=== PATIENT | male | born 1945 | race Caucasian/White ===

== ENCOUNTER 2024-05-28 08:11 | Inpatient (IN) | payer MEDICARE, OTHER, SELFPAY ==
[2024-05-28] VITALS (53 sets, daily range): BP systolic 102–167; BP diastolic 57–113; PULSE 72–113; RESP 12–20; TEMP 29.6–37.6; O2SAT 97–100; BMI 26.2
--- NOTE | ~2024-05-28 | CT_ITS ---
EXAMINATION: CT abdomen pelvis w con DATE: 05/28/2024 11:43 INDICATION: Found down. Hypothermia. TECHNIQUE: Computed tomography (CT) of the abdomen and pelvis was performed with 100 CC Omnipaque 350 intravenous contrast. Automated exposure control and iterative reconstruction technique were employe d. Exam dose: 1118.40 mGy-cm total exam DLP. COMPARISON: None. FINDINGS: Status post sternotomy. Included left nipple with mild gynecomastia; the right nipple is not excluded in this exam. There is minimal infiltrate or atelectasis in the dependent right lower lobe. Included lower lung zon es are otherwise clear. Normal heart size. No pericardial or pleural effusion. Small sliding hiatal hernia. There are multiple stones in the dependent aspect of the gallbladder. No gallbladder wall thickening or pericholecystic fluid or fat stranding. No bile duct or pancreatic duct dilatation is detected. The liver, spleen, pancreas, and adrenal glands are unremarkable. Occasional bilateral renal cysts, t he largest situated on the right, measuring up to 2 cm. No urinary tract calculus or hydroureteronephrosis is evident. There is extensive atherosclerotic calcification of the abdominal aorta and calcification at the orig ins of the celiac, superior mesenteric arteries as well as the renal arteries and inferior mesenteric artery. No abdominal aortic aneurysm. There is calcification of the iliac and femoral arteries. No intraperitoneal or retroperitoneal or pelvic mass lesion or adenopathy or ascites is detected. There is a Ramos catheter within the urinary bladder. Mild prostate enlargement. There are numerous diverticula of left and right colon. No CT evidence of diverticulitis. Normal appendix. There is a prominent amount of fecal material in the rectum and sigmoid colon. No bowel obstruction o r intraperitoneal free air. Multilevel degenerative disc disease lumbar spine, moderately severe at L4-5, severe at L5-S1. No suspicious osteolytic or osteoblastic lesions are noted. IMPRESSION: Status post sternotomy Minimal infiltrate or atelectasis in the dependent right lower lobe Small sliding hiatal hernia Cholelithiasis Occasional bilateral renal cysts Prominent amount of fecal material in the rectum and sigmoid colon; no bowel obstruction or free air Diverticulosis of left and right colon; no evidence of diverticulitis Normal appendix Reviewed, dictated and finalized at [facility]. Reviewed, dictated and finalized at [facility]. ARY SERVICES MANAGER IMPRESSION: Status post sternotomy Minimal infiltrate or atelectasis in the dependent right lower lobe Small sliding hiatal hernia Cholelithiasis Occasional bilateral renal cysts Prominent amount of fecal material in the rectum and sigmoid colon; no bowel ob struction or free air Diverticulosis of left and right colon; no evidence of diverticulitis Normal appendix
--- NOTE | ~2024-05-28 | XR_ITS ---
XR foot RT min 3V DATE: 05/28/2024 10:40 INDICATION: Found down. Bruising, abrasions TECHNIQUE: 3 views COMPARISON: None FINDINGS: There is osteopenia. There is mild plantar calcaneal enthesopathy. No recent fracture or dislocation, periosteal reaction or bone destruction is detected. Small erosions along the distal medial aspect of the medial cuneiform bone. IMPRESSION: Osteopenia Mild plantar calcaneal enthesopathy No recent fracture or dislocation Reviewed, dictated and finalized at location [facility]. LOPMENT EXECUTIVE
--- NOTE | ~2024-05-28 | XR_ITS ---
XR hand LT min 3V DATE: 05/28/2024 10:40 INDICATION: Found down TECHNIQUE: 3 views COMPARISON: None FINDINGS: There is osteopenia. There is polyarticular osteoarthritis involving triscaphe joint and first through fourth metacarpal p halangeal joints in particular, in addition to the interphalangeal joint of first digit. Mild chondrocalcinosis of the wrist joint. Mild scapholunate dissociation. No recent fracture, dislocation, periosteal reaction or bone destruction is detected. IMPRESSION: No recent fracture or dislocation is evident Polyarticular osteoarthritis Osteopenia Mild scapholunate dissociation Mild carpal chondrocalcinosis Reviewed, dictated and finalized at location [facility]. FORCE MANAGEMENT MANAGER
--- NOTE | ~2024-05-28 | XR_ITS ---
EXAMINATION: XR chest 1V portable DATE: 05/30/2024 10:07 INDICATION: Altered mental status. TECHNIQUE: A single frontal view of the chest was obtained. COMPARISON: Chest single view 05/29/2024 FINDINGS: There is mild atelectasis in right lower lung zone. Calcified left lung nodules are consist ent with old granulomatous disease. No pleural effusion or pneumothorax. The heart size is normal. Me delilah sternotomy wires and mediastinal surgical clips are seen, likely from prior coronary artery bypa ss grafting. A right upper extremity peripherally inserted central venous catheter (PICC) is seen wit h tip in the superior vena cava. IMPRESSION: 1. Mild atelectasis in right lower lung zone. Reviewed, dictated and finalized at location [facility]. MA OPERATOR
--- NOTE | ~2024-05-28 | XR_ITS ---
XR elbow LT min 3V DATE: 05/28/2024 10:40 INDICATION: Found down TECHNIQUE: 4 views COMPARISON: None FINDINGS: There is an IV in the antecubital fossa. No fracture or dislocation or joint effusion. No periosteal reaction or bone destruction. IMPRESSION: Negative left elbow Reviewed, dictated and finalized at location [facility]. ESALE AGRONOMIST IMPRESSION: Negative left elbow
--- NOTE | ~2024-05-28 | XR_ITS ---
XR elbow RT min 3V DATE: 05/28/2024 10:40 INDICATION: Found down TECHNIQUE: 4 views COMPARISON: None FINDINGS: This is a limited examination due to extensive radiopaque material of the elbow and forearm , apparently extravasated radiopaque contrast material. No apparent fracture or dislocation or joint effusion is identified. IMPRESSION: Limited examination due to apparent extravasated radiopaque contrast material No obvious fracture, dislocation or joint effusion Reviewed, dictated and finalized at location A. ER HOLE REAMER IMPRESSION: Limited examination due to apparent extravasated radiopaque contras t material No obvious fracture, dislocation or joint effusion
--- NOTE | ~2024-05-28 | CT_ITS ---
EXAMINATION: CTA chest PE protocol DATE: 05/28/2024 09:21 INDICATION: TECHNIQUE: Computed tomography angiography (CTA) of the chest was performed with 100 mL Omnipaque-350 intravenous contrast timed to evaluate the pulmonary arteries. Coronal maximum intensity projection 3D-reconstructions were created by the technologist. Automated exposure control and iterative reconst ruction technique were employed. Exam dose: 628.77 mGy-cm total exam DLP. COMPARISON: None. FINDINGS: No pulmonary embolism is identified. Heart size is normal. No pericardial or pleural effusion. Prominent left main, left anterior descending, left circumflex and right coronary artery calcificatio ns. There is thoracic aortic and great vessel calcification. No thoracic aortic aneurysm or dissection. No hilar or mediastinal mass lesion or lymphadenopathy. Small sliding hiatal hernia. There is diffuse thickening of the distal esophageal wall which may be d ue to esophagitis. Fluid level in the mid to distal esophagus. Lungs are clear of infiltrate or consolidation or pulmonary mass density. Cholelithiasis. No gallbladder wall thickening is noted. Normal morphology of the adrenal glands. Prominent degenerative disc disease in the lower cervical spine. Status post sternotomy. No suspicious osteolytic or osteoblastic lesions are noted. IMPRESSION: No evidence of pulmonary embolism Prominent coronary artery atherosclerosis Small sliding hiatal hernia Esophagitis is suspected Cholelithiasis Reviewed, dictated and finalized at Location A. Reviewed, dictated and finalized at location A. OGEN POWER PLANT MANAGER
--- NOTE | ~2024-05-28 | XR_ITS ---
XR foot LT min 3V DATE: 05/28/2024 10:39 INDICATION: Found down TECHNIQUE: 4 views COMPARISON: None FINDINGS: There is osteopenia. Small erosion along the distal medial aspect of the medial cuneiform b one. No recent fracture or dislocation, periosteal reaction or bone destruction is noted otherwise. IMPRESSION: Osteopenia; no fracture or dislocation Reviewed, dictated and finalized at location A. DER CHANGER
--- NOTE | ~2024-05-28 | CT_ITS ---
EXAMINATION: CT facial & cervical spine wo DATE: 05/28/2024 09:20 INDICATION: Found down TECHNIQUE: Computed tomography (CT) of the facial bones and maxillofacial region was performed withou t intravenous contrast. Automated exposure control and iterative reconstruction technique were employ ed. Exam dose: 517.55 mGy-cm total exam DLP. COMPARISON: None. FINDINGS: Mild right frontal extracranial soft tissue swelling. No underlying skull fracture is evide nt. The nasal bones are intact. Normal alignment at the frontozygomatic sutures. The orbital rims and bear and zygomatic arches and maxillary bones are intact. Normal alignment at the temporomandibular joints. No mandibular fracture is evident. The pterygoid plates are intact. The paranasal sinuses and mastoid air cells are well-developed and aerated. Normal alignment at the atlantoaxial joints. C1 and C2 are normally aligned and the odontoid process is intact. No fracture or dislocation or locked facet or prevertebral soft tissue swelling. Moderate degenerative disc disease at C4-5. Severe degenerative disc disease at C5-6 with minimal ret rolisthesis. Severe degenerative disc disease at C6-7. Minimal anterolisthesis at C7-T1. There is degenerative change at the apophyseal joints. Uncovertebral joint spurring is noted particularly at C5-6. IMPRESSION: No facial fracture Cervical spondylosis; no fracture or dislocation or locked facet of the cervical spine Reviewed, dictated and finalized at Location A. Reviewed, dictated and finalized at location A. HATCHERY LABORER IMPRESSION: No facial fracture Cervical spondylosis; no fracture or dislocation or locked facet of the cervica l spine
--- NOTE | ~2024-05-28 | XR_ITS ---
XR knee RT 3V DATE: 05/28/2024 10:40 INDICATION: Found down. Bruising, abrasions TECHNIQUE: 3 views COMPARISON: None FINDINGS: There is osteopenia. No fracture or dislocation or joint effusion is evident. There is prominent loss of lateral compartment joint space. Chondrocalcinosis. No periosteal reaction or bone destruction is detected. IMPRESSION: Osteopenia Osteoarthritis involving primarily the lateral compartment Chondrocalcinosis No fracture or dislocation or joint effusion Reviewed, dictated and finalized at location A. ER MANAGEMENT PROFESSOR
--- NOTE | ~2024-05-28 | XR_ITS ---
XR knee LT 3V DATE: 05/28/2024 10:39 INDICATION: Found down. Bruising, abrasions TECHNIQUE: 3 views COMPARISON: None FINDINGS: There is osteopenia. No fracture or dislocation or joint effusion. There is minimal periart icular spurring of the patella. Joint spaces are relatively intact. No radiopaque intra-articular loo se body or chondrocalcinosis. Calcification of the femoral, popliteal and trifurcation arteries. IMPRESSION: Osteopenia Mild osteoarthritis No fracture or dislocation or joint effusion Reviewed, dictated and finalized at location A. MENT ANALYST
--- NOTE | ~2024-05-28 | XR_ITS ---
XR hand RT min 3V DATE: 05/28/2024 10:40 INDICATION: Found down TECHNIQUE: 3 views COMPARISON: None FINDINGS: There is osteopenia. There is chondrocalcinosis of the triangular cartilage and wrist joint. There is prominent narrowing at the radiocarpal joint space and invagination of the distal radius by the scaphoid bone. Probable degenerative cyst of the distal half of the navicular bone. There is narrowing at the first carpometacarpal joint, third metacarpophalangeal joint and some inter phalangeal joints, consistent with polyarticular osteoarthritis. IMPRESSION: Osteopenia Comment calcinosis of trying of the cartilage and wrist joint Polyarticular osteoarthritis No recent fracture or dislocation is detected Reviewed, dictated and finalized at location A. RENDERER
--- NOTE | ~2024-05-28 | CT_ITS ---
EXAMINATION: CT brain wo con DATE: 05/28/2024 09:19 INDICATION: Found down. Altered mental state. TECHNIQUE: Computed tomography (CT) of the head was performed without intravenous contrast. The mA wa s adjusted according to patient size. Iterative reconstruction technique was employed. Exam dose: 68 1.00 mGy-cm total exam DLP. COMPARISON: None FINDINGS: Bilateral vertebral artery, basilar artery and carotid siphon internal carotid artery calci fications. Nonspecific diminished attenuation the cerebral white matter is likely due to chronic small vessel is chemic changes. No intracranial mass lesion or hemorrhage or cerebrovascular accident is evident. No midline shift or mass effect. No subdural or epidural hematoma. No fracture or bone destruction of the cranial vault. The paranasal sinuses and mastoid air cells are normally developed and aerated. IMPRESSION: Cerebral atherosclerosis and chronic small vessel ischemic changes of the cerebral white matter No skull fracture or acute intracranial finding Reviewed, dictated and finalized at Location A. Reviewed, dictated and finalized at location A. STRAIGHTENER
--- NOTE | ~2024-05-28 | XR_ITS ---
EXAMINATION: XR chest PICC line DATE: 05/29/2024 13:09 INDICATION: Central line placement. TECHNIQUE: A single frontal view of the chest was obtained. COMPARISON: Chest CT 05/28/2024 FINDINGS: There is mild atelectasis in right lower lung zone. No pleural effusion or pneumothorax. Th e heart size is normal. Median sternotomy wires and mediastinal surgical clips are seen, likely from prior coronary artery bypass grafting. A right upper extremity peripherally inserted central venous c atheter (PICC) is seen with tip beyond the superior margin of the radiograph in the right internal ju gular vein. IMPRESSION: 1. PICC tip in abnormal position in the right neck. Reviewed, dictated and finalized at location A. NDS CLEANER
--- NOTE | ~2024-05-28 | XR_ITS ---
EXAMINATION: XR chest PICC line DATE: 05/29/2024 13:52 INDICATION: Central line placement. TECHNIQUE: A single frontal view of the chest was obtained. COMPARISON: Chest single view at 12:54 PM FINDINGS: The left lateral costophrenic angle is excluded. There is no pneumonia, pleural effusion, o r pneumothorax. The heart size is normal. Median sternotomy wires and mediastinal surgical clips are seen, likely from prior coronary artery bypass grafting. A right upper extremity peripherally inserte d central venous catheter (PICC) is seen with tip at the superior cavoatrial junction. IMPRESSION: 1. PICC tip at the superior cavoatrial junction. Reviewed, dictated and finalized at location A. ON GILLNET VESSEL OPERATOR
--- NOTE | 2024-05-28 08:14 | ECG_ITS ---
Test Date: 2024-05-28 08:41:56 Measurements Intervals [place] Rate: P: 0 MA: 0 QRS: 0 QRSD: 0 T: 0 QT: 0 QTc: 0 Interpretive Statements SINUS RHYTHM WITH SIGNIFICANT BASELINE ARTIFACT BASELINE ARTIFACT- I, II, III, AVR, AVL, AVF, V1-V6 NORMAL ECG No previous ECG available for comparison Electronically Signed On 05-28-2024 13:57:51 JOINT SETTER by Domingo Villa D.O.
[2024-05-28 08:33] LABS: Alveolar/Arterial O2 Gradient < 0.0 mmHg; Base Excess ABG -12.2 mEq/l (+/-2.0); Fractional Inspired Oxygen 21 %; HCO3 ABG 14.3 mEq/l (22.0-26.0); Oxygen Content ABG 17.4 %vol (16.0-22.0); Oxygen Saturation ABG 98.2 % (95.0-100.0); Oxyhemoglobin 97.8 % THb (90.0-100.0); PCO2 ABG 34.7 mmHg (35.0-45.0); PO2 ABG 132.4 mmHg (80.0-100.0); Total Hemoglobin 12.5 g/dL (12.0-18.0)
[2024-05-28 08:35] LABS: Device ROOM AIR; Modified Allen's Test Pass; Site Drawn RIGHT RADIAL; pH ABG 7.233 (7.350-7.450)
[2024-05-28 09:08] LABS: Basophils Absolute Auto 0.1 K/mm3 (0.0-0.1); Basophils Percent Auto 0.3 % (0.2-1.2); Hematocrit 34.8 % (42.0-52.0); Hemoglobin 11.9 g/dL (14.0-18.0); Immature Granulocyte Absolute 0.63 K/mm3 (0.00-0.031); Immature Granulocyte Percent A 2.9 % (0-0.5); Lymphocytes Absolute Auto 2.12 K/mm3 (0.9-3.2); Lymphocytes Percent Auto 9.9 % (18.3-44.2); Mean Corpuscular HGB Conc 34.2 g/dl (32-36); Mean Corpuscular Hemoglobin 34.8 pg (26-34); Mean Corpuscular Volume 101.8 fl (80-100); Mean Platelet Volume 11.9 fl (7.4-10.4); Monocytes Absolute Auto 2.6 K/mm3 (0.1-0.6); Monocytes Percent Auto 11.9 % (2.6-8.5); Neutrophils Absolute Auto 16.1 K/mm3 (1.3-6.7); Platelet Count Result 150 k/mm3 (150-375); Red Blood Count 3.42 M/mm3 (4.6-6.20); Red Cell Distribution Width 13.2 % (11.5-14.5); White Blood Count 21.4 K/mm3 (4.5-10.0)
[2024-05-28 09:20] LABS: Glucose Point of Care 139 mg/dl (65-105)
[2024-05-28 09:20] LABS: Acetaminophen < 10 ug/mL (10-30); Ethanol 120 mg/dL (<10)
[2024-05-28 09:21] LABS: Alanine Aminotransferase 31 U/L (6-50); Albumin Level 3.2 g/dL (3.5-5.1); Alkaline Phosphatase 56 U/L (38-126); Anion Gap 13 mmol/L (4-12); Aspartate Amino Transferase 42 U/L (17-59); Bilirubin,Total 0.8 mg/dL (0.2-1.3); Blood Urea Nitrogen 34 mg/dL (9-20); Calcium 7.3 mg/dL (8.4-10.2); Carbon Dioxide 18 mmol/L (22-30); Chloride 101 mmol/L (98-107); Creatine Kinase 259 U/L (55-170); Estimated CRCL calculation 49 ml/min; Estimated Glomerular Filt Rate > 60; Glucose 124 mg/dL (65-110); Lactic Acid Reflex 7.8 mmol/L (0.7-2.0); Lipase 264 U/L (23-300); Magnesium 1.9 mg/dL (1.6-2.3); Phosphorus 3.9 mg/dL (2.5-4.5); Potassium 4.6 mmol/L (3.4-5.0); Sodium 132 mmol/L (137-145)
[2024-05-28 09:22] LABS: Add Urine Microscopic? NO; Appearance Urine Clear (Clear); Bilirubin Urine Negative (Negative); Blood Urine Negative (Negative); Color Urine Yellow (Yellow); Glucose Urine UA Negative (Negative); Ketones Urine Negative (Negative); Leukocyte Esterase Ur Negative LEU/UL (Negative); Nitrate Urine Negative (Negative); Protein Urine Negative (Negative); Specific Grav Ur 1.016 (1.001-1.035); Urobilinogen Urine 0.2 mg/dL (<2.0)
[2024-05-28 09:23] LABS: Prothrombin Time 13.2 Seconds (11.1-14.7)
[2024-05-28 09:24] LABS: Partial Thromboplastin Time 24.4 Seconds (22.3-36.8)
[2024-05-28 09:25] LABS: Estimated CRCL calculation 45 ml/min; Estimated Glomerular Filt Rate 58
[2024-05-28 09:32] LABS: NT Pro B Type Natriuretic Pept 1160 pg/mL (19.9-100); Troponin I 0.026 ng/mL (0.000-0.034)
[2024-05-28 09:37] LABS: Amphetamine Screen Urine Negative (Negative); Barbiturate Screen Urine Negative (Negative); Benzodiazepines Screen Urine Negative (Negative); Cannabinoid Screen Urine Negative (Negative); Cocaine Screen Urine Negative (Negative); Methadone Screen Urine Negative (Negative); Opiate Screen Urine Positive (Negative); Phencyclidine Screen Urine Negative (Negative)
[2024-05-28] MEDS: SODIUM CHLORIDE 0.9% IV 3,000 ML 999 ML IV CONT (09:37)
--- NOTE | 2024-05-28 10:34 | PC.NURSE ---
[facility] in [place] called for a med list. The pharmacist reported he had only filled 2 rx and it was in Jul. She was able to see that he has sulfa drugs as a listed allergy. KARIN and Mohit did corporate searches and did not find this patient in their system. [facility] did not find their patient in their system.
--- NOTE | 2024-05-28 10:40 | PC.NURSE ---
[facility] pharmacy did not have patient in their system. [facility] did not have patient in their system.
[2024-05-28 10:56] LABS: Influenza A QL RT-PCR Negative (Negative); Influenza B QL RT-PCR Negative (Negative); RSV RNA, RT-PCR Negative (Negative); SARS-CoV-2 RNA PCR Negative (Negative)
[2024-05-28 12:05] LABS: Reflex Lactic Acid Yes or No Add Lactic
--- NOTE | 2024-05-28 13:02 | PC.NURSE ---
called phlebotomy and vascular access to assist with blood cultures.
--- NOTE | 2024-05-28 13:29 | ED_ITS ---
HPI - General Adult General Chief complaint: Fall Stated complaint: found outside Time Seen by Provider: 05/28/24 08:13 History of Present Illness HPI narrative: This is an 79-year-old male found down outside of his home. Neighbor saw him laying in his driveway. EMS was called. When they arrived the patient was cold to touch, with abrasions over his face hands knees and feet. It appeared that he had been crawling around his driveway but was unable to get into his home. Patient is altered and cannot provide any useful information to got a workup Related Data Home Medications Medication Instructions Recorded Confirmed albuterol 2 inh QID PRN Shortness Of Breath 05/28/24 Or Wheezing allopurinol 300 mg tablet 300 mg PO DAILY 05/28/24 amlodipine 5 mg tablet 5 mg PO DAILY 05/28/24 atorvastatin 40 mg tablet 40 mg PO HS 05/28/24 clotrimazole 1 % topical cream applic topical PRN Wound Care 05/28/24 (Antifungal (clotrimazole)) dorzolamide 2 %-timolol 0.5 % (PF) 1 drp ophthalmic (eye) BID 05/28/24 eye drops hydrochlorothiazide 25 mg tablet 25 mg PO DAILY 05/28/24 hydrocodone 5 mg-acetaminophen 325 1 tablet PO Q6H PRN Pain 05/28/24 mg tablet isoniazid 300 mg tablet 300 mg PO DAILY 05/28/24 naloxone 0.4 mg/0.4 mL injection, mg 05/28/24 auto-injector olodaterol 2.5 mcg/actuation mist 2 inhalation DAILY 05/28/24 for inhalation (Striverdi Respimat) pyridoxine (vitamin B6) 50 mg 50 mg PO DAILY 05/28/24 tablet Allergies Allergy/AdvReac Type Severity Reaction Status Date / Time Sulfa (Sulfonamide Allergy Unknown Verified 05/28/24 10:24 Antibiotics) FOR[facility]LY [facility] Past Medical History Medical History (Updated 05/28/24 @ 14:29 by Vito Steven MD) Chronic obstructive pulmonary disease Chronic prescription opiate use Coronary artery disease Hyperlipidemia Hypertension Social History Social History Social History: Surrogate medical decision maker: Code status: Full code. Alcohol intake: current Exam Narrative: APPEARANCE: alert to pain Head: multiple abrasions to face EYES: EOMI, NECK: Trachea midline RESPIRATORY: No increased rate of breathing, scattered crackles CARDIOVASCULAR: RRR, no peripheral edema ABDOMINAL: Non-distended, soft nontender MUSCULOSKELETAl: head to toe trauma exam revealed multiple areas of abrasions and skin tears. No obvious deformities or areas of significant trauma. NEURO: alert to voice. moves for 4 extremities to pain SKIN:: multiple abrasions and skin tears over the patient's face hands knees feet PSYCHIATRIC: Normal affect Course Vital Signs Vital signs: Vital Signs Temperature 85.3 F L 05/28/24 08:11 Pulse Rate 89 05/28/24 08:11 Respiratory Rate 17 05/28/24 08:11 Blood Pressure 147/93 H 05/28/24 08:11 Pulse Oximetry 100 05/28/24 08:11 Oxygen Delivery Room Air 05/28/24 08:11 Temperature 96.6 F L 05/28/24 13:01 Pulse Rate 92 05/28/24 13:01 Respiratory Rate 18 05/28/24 13:01 Blood Pressure 109/72 05/28/24 13:01 Pulse Oximetry 98 05/28/24 13:01 Oxygen Delivery Room Air 05/28/24 08:11 Medical Decision Making MDM Narrative Medical decision making narrative: -Course: 79-year-old male presenting after being found in his driveway after being out in the cold all night. On arrival patient is alert to pain. found have a core temperature of 29 degree C. temperature Ramos placed. patient started with active warming using a Gene Hugger. Patient given 3 L fluid bolus and started on broad-spectrum antibiotics. CT brain face neck negative for traumatic injury. CT PE negative for pe/PNA. CT abdomen pelvis negative for causitive findings. X-rays reviewed with no new traumatic injuries. Patient does have a mild scapholunate decision left hand but unclear chronicity. Laboratory significant for an alcohol level of 120. This is likely the reason the patient was found down on his driveway. White count 21. Lactic 7.8. ABG with 7.2 pH/ 34.7 CO2 /132.4 O2/ 14.3 - metabolic acidosis UDS - Opiates positive. confirmed pharmacy that this is prescription. on re-evaluation patient's core temperature is returned to 98.6. Blood pressure has been maintained. Mental status is improving. Patient will be admitted to the hospital for further management Vital Signs Vital Signs: Vital Signs Temperature 85.3 F L 05/28/24 08:11 Pulse Rate 89 05/28/24 08:11 Respiratory Rate 17 05/28/24 08:11 Blood Pressure 147/93 H 05/28/24 08:11 Pulse Oximetry 100 05/28/24 08:11 Oxygen Delivery Room Air 05/28/24 08:11 Temperature 96.6 F L 05/28/24 13:01 Pulse Rate 92 05/28/24 13:01 Respiratory Rate 18 05/28/24 13:01 Blood Pressure 109/72 05/28/24 13:01 Pulse Oximetry 98 05/28/24 13:01 Oxygen Delivery Room Air 05/28/24 08:11 Lab Data 05/28/24 08:41 05/28/24 08:55 Labs: Lab Results 05/28/24 05/28/24 05/28/24 Range/Units 08:36 08:41 08:41 WBC 21.4 H (4.5-10.0) K/mm3 RBC 3.42 L (4.6-6.20) M/mm3 Hgb 11.9 L (14.0-18.0) g/dL Hct 34.8 L (42.0-52.0) % MCV 101.8 H (80-100) fl MCH 34.8 H (26-34) pg MCHC 34.2 (32-36) g/dl RDW 13.2 (11.5-14.5) % Plt Count 150 (150-375) k/mm3 MPV 11.9 H (7.4-10.4) fl Immature Gran % (Auto) 2.9 H (0-0.5) % Neut % (Auto) 75.0 H (45.5-73.1) % Lymph % (Auto) 9.9 L (18.3-44.2) % [place] % (Auto) 11.9 H (2.6-8.5) % Eos % (Auto) 0.0 (0-4.4) % Baso % (Auto) 0.3 (0.2-1.2) % Lymph # (Auto) 2.12 (0.9-3.2) K/mm3 [place] # (Auto) 2.6 H (0.1-0.6) K/mm3 Eos # (Auto) 0.0 (0-0.3) K/mm3 Baso # (Auto) 0.1 (0.0-0.1) K/mm3 Abs Immat Gran (auto) 0.63 H (0.00-0.031) K/mm3 Absolute Neuts (auto) 16.1 H (1.3-6.7) K/mm3 Absolute Nucleated RBC 0.000 (0.0-0.012) K/mm3 Nucleated RBC % 0.0 (0.0-0.2) % PT 13.2 (11.1-14.7) Seconds INR 1.0 APTT 24.4 (22.3-36.8) Seconds Sodium Cancelled 132 L Potassium Cancelled Chloride Carbon Dioxide Anion Gap BUN Creatinine Estim Creat Clear Calc Estimated GFR Glucose POC Capillary Glucose 139 H (65-105) mg/dl Lactic Acid (0.7-2.0) mmol/L Calcium Phosphorus (2.5-4.5) mg/dL Magnesium Total Bilirubin AST ALT Alkaline Phosphatase Total Creatine Kinase Troponin I (0.000-0.034) ng/mL NT-Pro-B Natriuret Pep Total Protein Albumin Lipase TSH (Reflex) (0.465-4.68) uIU/mL Urine Color (Yellow) Urine Appearance (Clear) Urine pH (5.0-9.0) Ur Specific [place] (1.001-1.035) Urine Protein (Negative) mg/dL Urine Glucose (UA) (Negative) mg/dL Urine Ketones (Negative) mg/dL Ur Blood (Man) (Negative) Urine Nitrate (Negative) Urine Bilirubin (Negative) Urine Urobilinogen (<2.0) mg/dL Leukocyte Esterase Rfl (Negative) GRIS/UL Urine Opiates Screen (Negative) Urine Methadone Screen (Negative) Acetaminophen (10-30) ug/mL Ur Barbiturates Screen (Negative) Ur Phencyclidine Scrn (Negative) Ur Amphetamine Screen (Negative) U Benzodiazepines Scrn (Negative) Urine Cocaine Screen (Negative) U Cannabinoids Screen (Negative) Ethyl Alcohol (<10) mg/dL Influenza A (RT-PCR) (Negative) Influenza B (RT-PCR) (Negative) RSV (RT-PCR) (Negative) SARS-CoV-2 RNA (RT-PCR) (Negative) Blood Type Antibody Screen 05/28/24 05/28/24 05/28/24 Range/Units 08:41 08:41 08:41 WBC (4.5-10.0) K/mm3 RBC (4.6-6.20) M/mm3 Hgb (14.0-18.0) g/dL Hct (42.0-52.0) % MCV (80-100) fl MCH (26-34) pg MCHC (32-36) g/dl RDW (11.5-14.5) % Plt Count (150-375) k/mm3 MPV (7.4-10.4) fl Immature Gran % (Auto) (0-0.5) % Neut % (Auto) (45.5-73.1) % Lymph % (Auto) (18.3-44.2) % [place] % (Auto) (2.6-8.5) % Eos % (Auto) (0-4.4) % Baso % (Auto) (0.2-1.2) % Lymph # (Auto) (0.9-3.2) K/mm3 [place] # (Auto) (0.1-0.6) K/mm3 Eos # (Auto) (0-0.3) K/mm3 Baso # (Auto) (0.0-0.1) K/mm3 Abs Immat Gran (auto) (0.00-0.031) K/mm3 Absolute Neuts (auto) (1.3-6.7) K/mm3 Absolute Nucleated RBC (0.0-0.012) K/mm3 Nucleated RBC % (0.0-0.2) % PT (11.1-14.7) Seconds INR APTT (22.3-36.8) Seconds Sodium Potassium 4.6 Chloride Cancelled 101 Carbon Dioxide Cancelled 18 L Anion Gap Cancelled BUN Creatinine Estim Creat Clear Calc Estimated GFR Glucose POC Capillary Glucose (65-105) mg/dl Lactic Acid (0.7-2.0) mmol/L Calcium Phosphorus (2.5-4.5) mg/dL Magnesium Total Bilirubin AST ALT Alkaline Phosphatase Total Creatine Kinase Troponin I (0.000-0.034) ng/mL NT-Pro-B Natriuret Pep Total Protein Albumin Lipase TSH (Reflex) (0.465-4.68) uIU/mL Urine Color (Yellow) Urine Appearance (Clear) Urine pH (5.0-9.0) Ur Specific [place] (1.001-1.035) Urine Protein (Negative) mg/dL Urine Glucose (UA) (Negative) mg/dL Urine Ketones (Negative) mg/dL Ur Blood (Man) (Negative) Urine Nitrate (Negative) Urine Bilirubin (Negative) Urine Urobilinogen (<2.0) mg/dL Leukocyte Esterase Rfl (Negative) GRIS/UL Urine Opiates Screen (Negative) Urine Methadone Screen (Negative) Acetaminophen (10-30) ug/mL Ur Barbiturates Screen (Negative) Ur Phencyclidine Scrn (Negative) Ur Amphetamine Screen (Negative) U Benzodiazepines Scrn (Negative) Urine Cocaine Screen (Negative) U Cannabinoids Screen (Negative) Ethyl Alcohol (<10) mg/dL Influenza A (RT-PCR) (Negative) Influenza B (RT-PCR) (Negative) RSV (RT-PCR) (Negative) SARS-CoV-2 RNA (RT-PCR) (Negative) Blood Type Antibody Screen 05/28/24 05/28/24 05/28/24 Range/Units 08:41 08:41 08:41 WBC (4.5-10.0) K/mm3 RBC (4.6-6.20) M/mm3 Hgb (14.0-18.0) g/dL Hct (42.0-52.0) % MCV (80-100) fl MCH (26-34) pg MCHC (32-36) g/dl RDW (11.5-14.5) % Plt Count (150-375) k/mm3 MPV (7.4-10.4) fl Immature Gran % (Auto) (0-0.5) % Neut % (Auto) (45.5-73.1) % Lymph % (Auto) (18.3-44.2) % [place] % (Auto) (2.6-8.5) % Eos % (Auto) (0-4.4) % Baso % (Auto) (0.2-1.2) % Lymph # (Auto) (0.9-3.2) K/mm3 [place] # (Auto) (0.1-0.6) K/mm3 Eos # (Auto) (0-0.3) K/mm3 Baso # (Auto) (0.0-0.1) K/mm3 Abs Immat Gran (auto) (0.00-0.031) K/mm3 Absolute Neuts (auto) (1.3-6.7) K/mm3 Absolute Nucleated RBC (0.0-0.012) K/mm3 Nucleated RBC % (0.0-0.2) % PT (11.1-14.7) Seconds INR APTT (22.3-36.8) Seconds Sodium Potassium Chloride Carbon Dioxide Anion Gap 13 H BUN Cancelled 34 H Creatinine Cancelled 1.10 Estim Creat Clear Calc Cancelled Estimated GFR Glucose POC Capillary Glucose (65-105) mg/dl Lactic Acid (0.7-2.0) mmol/L Calcium Phosphorus (2.5-4.5) mg/dL Magnesium Total Bilirubin AST ALT Alkaline Phosphatase Total Creatine Kinase Troponin I (0.000-0.034) ng/mL NT-Pro-B Natriuret Pep Total Protein Albumin Lipase TSH (Reflex) (0.465-4.68) uIU/mL Urine Color (Yellow) Urine Appearance (Clear) Urine pH (5.0-9.0) Ur Specific [place] (1.001-1.035) Urine Protein (Negative) mg/dL Urine Glucose (UA) (Negative) mg/dL Urine Ketones (Negative) mg/dL Ur Blood (Man) (Negative) Urine Nitrate (Negative) Urine Bilirubin (Negative) Urine Urobilinogen (<2.0) mg/dL Leukocyte Esterase Rfl (Negative) GRIS/UL Urine Opiates Screen (Negative) Urine Methadone Screen (Negative) Acetaminophen (10-30) ug/mL Ur Barbiturates Screen (Negative) Ur Phencyclidine Scrn (Negative) Ur Amphetamine Screen (Negative) U Benzodiazepines Scrn (Negative) Urine Cocaine Screen (Negative) U Cannabinoids Screen (Negative) Ethyl Alcohol (<10) mg/dL Influenza A (RT-PCR) (Negative) Influenza B (RT-PCR) (Negative) RSV (RT-PCR) (Negative) SARS-CoV-2 RNA (RT-PCR) (Negative) Blood Type Antibody Screen 05/28/24 05/28/24 05/28/24 Range/Units 08:41 08:41 08:41 WBC (4.5-10.0) K/mm3 RBC (4.6-6.20) M/mm3 Hgb (14.0-18.0) g/dL Hct (42.0-52.0) % MCV (80-100) fl MCH (26-34) pg MCHC (32-36) g/dl RDW (11.5-14.5) % Plt Count (150-375) k/mm3 MPV (7.4-10.4) fl Immature Gran % (Auto) (0-0.5) % Neut % (Auto) (45.5-73.1) % Lymph % (Auto) (18.3-44.2) % [place] % (Auto) (2.6-8.5) % Eos % (Auto) (0-4.4) % Baso % (Auto) (0.2-1.2) % Lymph # (Auto) (0.9-3.2) K/mm3 [place] # (Auto) (0.1-0.6) K/mm3 Eos # (Auto) (0-0.3) K/mm3 Baso # (Auto) (0.0-0.1) K/mm3 Abs Immat Gran (auto) (0.00-0.031) K/mm3 Absolute Neuts (auto) (1.3-6.7) K/mm3 Absolute Nucleated RBC (0.0-0.012) K/mm3 Nucleated RBC % (0.0-0.2) % PT (11.1-14.7) Seconds INR APTT (22.3-36.8) Seconds Sodium Potassium Chloride Carbon Dioxide Anion Gap BUN Creatinine Estim Creat Clear Calc 49 Estimated GFR Cancelled > 60 Glucose Cancelled 124 H POC Capillary Glucose (65-105) mg/dl Lactic Acid 7.8 H* (0.7-2.0) mmol/L Calcium Cancelled Phosphorus (2.5-4.5) mg/dL Magnesium Total Bilirubin AST ALT Alkaline Phosphatase Total Creatine Kinase Troponin I (0.000-0.034) ng/mL NT-Pro-B Natriuret Pep Total Protein Albumin Lipase TSH (Reflex) (0.465-4.68) uIU/mL Urine Color (Yellow) Urine Appearance (Clear) Urine pH (5.0-9.0) Ur Specific [place] (1.001-1.035) Urine Protein (Negative) mg/dL Urine Glucose (UA) (Negative) mg/dL Urine Ketones (Negative) mg/dL Ur Blood (Man) (Negative) Urine Nitrate (Negative) Urine Bilirubin (Negative) Urine Urobilinogen (<2.0) mg/dL Leukocyte Esterase Rfl (Negative) GRIS/UL Urine Opiates Screen (Negative) Urine Methadone Screen (Negative) Acetaminophen (10-30) ug/mL Ur Barbiturates Screen (Negative) Ur Phencyclidine Scrn (Negative) Ur Amphetamine Screen (Negative) U Benzodiazepines Scrn (Negative) Urine Cocaine Screen (Negative) U Cannabinoids Screen (Negative) Ethyl Alcohol (<10) mg/dL Influenza A (RT-PCR) (Negative) Influenza B (RT-PCR) (Negative) RSV (RT-PCR) (Negative) SARS-CoV-2 RNA (RT-PCR) (Negative) Blood Type Antibody Screen 05/28/24 05/28/24 05/28/24 Range/Units 08:41 08:41 08:41 WBC (4.5-10.0) K/mm3 RBC (4.6-6.20) M/mm3 Hgb (14.0-18.0) g/dL Hct (42.0-52.0) % MCV (80-100) fl MCH (26-34) pg MCHC (32-36) g/dl RDW (11.5-14.5) % Plt Count (150-375) k/mm3 MPV (7.4-10.4) fl Immature Gran % (Auto) (0-0.5) % Neut % (Auto) (45.5-73.1) % Lymph % (Auto) (18.3-44.2) % [place] % (Auto) (2.6-8.5) % Eos % (Auto) (0-4.4) % Baso % (Auto) (0.2-1.2) % Lymph # (Auto) (0.9-3.2) K/mm3 [place] # (Auto) (0.1-0.6) K/mm3 Eos # (Auto) (0-0.3) K/mm3 Baso # (Auto) (0.0-0.1) K/mm3 Abs Immat Gran (auto) (0.00-0.031) K/mm3 Absolute Neuts (auto) (1.3-6.7) K/mm3 Absolute Nucleated RBC (0.0-0.012) K/mm3 Nucleated RBC % (0.0-0.2) % PT (11.1-14.7) Seconds INR APTT (22.3-36.8) Seconds Sodium Potassium Chloride Carbon Dioxide Anion Gap BUN Creatinine Estim Creat Clear Calc Estimated GFR Glucose POC Capillary Glucose (65-105) mg/dl Lactic Acid (0.7-2.0) mmol/L Calcium 7.3 L Phosphorus 3.9 (2.5-4.5) mg/dL Magnesium Cancelled 1.9 Total Bilirubin Cancelled 0.8 AST Cancelled ALT Alkaline Phosphatase Total Creatine Kinase Troponin I (0.000-0.034) ng/mL NT-Pro-B Natriuret Pep Total Protein Albumin Lipase TSH (Reflex) (0.465-4.68) uIU/mL Urine Color (Yellow) Urine Appearance (Clear) Urine pH (5.0-9.0) Ur Specific [place] (1.001-1.035) Urine Protein (Negative) mg/dL Urine Glucose (UA) (Negative) mg/dL Urine Ketones (Negative) mg/dL Ur Blood (Man) (Negative) Urine Nitrate (Negative) Urine Bilirubin (Negative) Urine Urobilinogen (<2.0) mg/dL Leukocyte Esterase Rfl (Negative) GRIS/UL Urine Opiates Screen (Negative) Urine Methadone Screen (Negative) Acetaminophen (10-30) ug/mL Ur Barbiturates Screen (Negative) Ur Phencyclidine Scrn (Negative) Ur Amphetamine Screen (Negative) U Benzodiazepines Scrn (Negative) Urine Cocaine Screen (Negative) U Cannabinoids Screen (Negative) Ethyl Alcohol (<10) mg/dL Influenza A (RT-PCR) (Negative) Influenza B (RT-PCR) (Negative) RSV (RT-PCR) (Negative) SARS-CoV-2 RNA (RT-PCR) (Negative) Blood Type Antibody Screen 05/28/24 05/28/24 05/28/24 Range/Units 08:41 08:41 08:41 WBC (4.5-10.0) K/mm3 RBC (4.6-6.20) M/mm3 Hgb (14.0-18.0) g/dL Hct (42.0-52.0) % MCV (80-100) fl MCH (26-34) pg MCHC (32-36) g/dl RDW (11.5-14.5) % Plt Count (150-375) k/mm3 MPV (7.4-10.4) fl Immature Gran % (Auto) (0-0.5) % Neut % (Auto) (45.5-73.1) % Lymph % (Auto) (18.3-44.2) % [place] % (Auto) (2.6-8.5) % Eos % (Auto) (0-4.4) % Baso % (Auto) (0.2-1.2) % Lymph # (Auto) (0.9-3.2) K/mm3 [place] # (Auto) (0.1-0.6) K/mm3 Eos # (Auto) (0-0.3) K/mm3 Baso # (Auto) (0.0-0.1) K/mm3 Abs Immat Gran (auto) (0.00-0.031) K/mm3 Absolute Neuts (auto) (1.3-6.7) K/mm3 Absolute Nucleated RBC (0.0-0.012) K/mm3 Nucleated RBC % (0.0-0.2) % PT (11.1-14.7) Seconds INR APTT (22.3-36.8) Seconds Sodium Potassium Chloride Carbon Dioxide Anion Gap BUN Creatinine Estim Creat Clear Calc Estimated GFR Glucose POC Capillary Glucose (65-105) mg/dl Lactic Acid (0.7-2.0) mmol/L Calcium Phosphorus (2.5-4.5) mg/dL Magnesium Total Bilirubin AST 42 ALT Cancelled 31 Alkaline Phosphatase Cancelled 56 Total Creatine Kinase Cancelled Troponin I (0.000-0.034) ng/mL NT-Pro-B Natriuret Pep Total Protein Albumin Lipase TSH (Reflex) (0.465-4.68) uIU/mL Urine Color (Yellow) Urine Appearance (Clear) Urine pH (5.0-9.0) Ur Specific [place] (1.001-1.035) Urine Protein (Negative) mg/dL Urine Glucose (UA) (Negative) mg/dL Urine Ketones (Negative) mg/dL Ur Blood (Man) (Negative) Urine Nitrate (Negative) Urine Bilirubin (Negative) Urine Urobilinogen (<2.0) mg/dL Leukocyte Esterase Rfl (Negative) GRIS/UL Urine Opiates Screen (Negative) Urine Methadone Screen (Negative) Acetaminophen (10-30) ug/mL Ur Barbiturates Screen (Negative) Ur Phencyclidine Scrn (Negative) Ur Amphetamine Screen (Negative) U Benzodiazepines Scrn (Negative) Urine Cocaine Screen (Negative) U Cannabinoids Screen (Negative) Ethyl Alcohol (<10) mg/dL Influenza A (RT-PCR) (Negative) Influenza B (RT-PCR) (Negative) RSV (RT-PCR) (Negative) SARS-CoV-2 RNA (RT-PCR) (Negative) Blood Type Antibody Screen 05/28/24 05/28/24 05/28/24 Range/Units 08:41 08:41 08:41 WBC (4.5-10.0) K/mm3 RBC (4.6-6.20) M/mm3 Hgb (14.0-18.0) g/dL Hct (42.0-52.0) % MCV (80-100) fl MCH (26-34) pg MCHC (32-36) g/dl RDW (11.5-14.5) % Plt Count (150-375) k/mm3 MPV (7.4-10.4) fl Immature Gran % (Auto) (0-0.5) % Neut % (Auto) (45.5-73.1) % Lymph % (Auto) (18.3-44.2) % [place] % (Auto) (2.6-8.5) % Eos % (Auto) (0-4.4) % Baso % (Auto) (0.2-1.2) % Lymph # (Auto) (0.9-3.2) K/mm3 [place] # (Auto) (0.1-0.6) K/mm3 Eos # (Auto) (0-0.3) K/mm3 Baso # (Auto) (0.0-0.1) K/mm3 Abs Immat Gran (auto) (0.00-0.031) K/mm3 Absolute Neuts (auto) (1.3-6.7) K/mm3 Absolute Nucleated RBC (0.0-0.012) K/mm3 Nucleated RBC % (0.0-0.2) % PT (11.1-14.7) Seconds INR APTT (22.3-36.8) Seconds Sodium Potassium Chloride Carbon Dioxide Anion Gap BUN Creatinine Estim Creat Clear Calc Estimated GFR Glucose POC Capillary Glucose (65-105) mg/dl Lactic Acid (0.7-2.0) mmol/L Calcium Phosphorus (2.5-4.5) mg/dL Magnesium Total Bilirubin AST ALT Alkaline Phosphatase Total Creatine Kinase 259 H Troponin I 0.026 (0.000-0.034) ng/mL NT-Pro-B Natriuret Pep Cancelled 1160 H Total Protein Cancelled 6.0 L Albumin Cancelled Lipase TSH (Reflex) (0.465-4.68) uIU/mL Urine Color (Yellow) Urine Appearance (Clear) Urine pH (5.0-9.0) Ur Specific [place] (1.001-1.035) Urine Protein (Negative) mg/dL Urine Glucose (UA) (Negative) mg/dL Urine Ketones (Negative) mg/dL Ur Blood (Man) (Negative) Urine Nitrate (Negative) Urine Bilirubin (Negative) Urine Urobilinogen (<2.0) mg/dL Leukocyte Esterase Rfl (Negative) GRIS/UL Urine Opiates Screen (Negative) Urine Methadone Screen (Negative) Acetaminophen (10-30) ug/mL Ur Barbiturates Screen (Negative) Ur Phencyclidine Scrn (Negative) Ur Amphetamine Screen (Negative) U Benzodiazepines Scrn (Negative) Urine Cocaine Screen (Negative) U Cannabinoids Screen (Negative) Ethyl Alcohol (<10) mg/dL Influenza A (RT-PCR) (Negative) Influenza B (RT-PCR) (Negative) RSV (RT-PCR) (Negative) SARS-CoV-2 RNA (RT-PCR) (Negative) Blood Type Antibody Screen 05/28/24 05/28/24 05/28/24 Range/Units 08:41 08:41 08:47 WBC (4.5-10.0) K/mm3 RBC (4.6-6.20) M/mm3 Hgb (14.0-18.0) g/dL Hct (42.0-52.0) % MCV (80-100) fl MCH (26-34) pg MCHC (32-36) g/dl RDW (11.5-14.5) % Plt Count (150-375) k/mm3 MPV (7.4-10.4) fl Immature Gran % (Auto) (0-0.5) % Neut % (Auto) (45.5-73.1) % Lymph % (Auto) (18.3-44.2) % [place] % (Auto) (2.6-8.5) % Eos % (Auto) (0-4.4) % Baso % (Auto) (0.2-1.2) % Lymph # (Auto) (0.9-3.2) K/mm3 [place] # (Auto) (0.1-0.6) K/mm3 Eos # (Auto) (0-0.3) K/mm3 Baso # (Auto) (0.0-0.1) K/mm3 Abs Immat Gran (auto) (0.00-0.031) K/mm3 Absolute Neuts (auto) (1.3-6.7) K/mm3 Absolute Nucleated RBC (0.0-0.012) K/mm3 Nucleated RBC % (0.0-0.2) % PT (11.1-14.7) Seconds INR APTT (22.3-36.8) Seconds Sodium Potassium Chloride Carbon Dioxide Anion Gap BUN Creatinine Estim Creat Clear Calc Estimated GFR Glucose POC Capillary Glucose (65-105) mg/dl Lactic Acid (0.7-2.0) mmol/L Calcium Phosphorus (2.5-4.5) mg/dL Magnesium Total Bilirubin AST ALT Alkaline Phosphatase Total Creatine Kinase Troponin I (0.000-0.034) ng/mL NT-Pro-B Natriuret Pep Total Protein Albumin 3.2 L Lipase Cancelled 264 TSH (Reflex) 1.240 (0.465-4.68) uIU/mL Urine Color Yellow (Yellow) Urine Appearance Clear (Clear) Urine pH 5.0 (5.0-9.0) Ur Specific [place] 1.016 (1.001-1.035) Urine Protein Negative (Negative) mg/dL Urine Glucose (UA) Negative (Negative) mg/dL Urine Ketones Negative (Negative) mg/dL Ur Blood (Man) Negative (Negative) Urine Nitrate Negative (Negative) Urine Bilirubin Negative (Negative) Urine Urobilinogen 0.2 (<2.0) mg/dL Leukocyte Esterase Rfl Negative (Negative) GRIS/UL Urine Opiates Screen Positive A (Negative) Urine Methadone Screen Negative (Negative) Acetaminophen < 10 L (10-30) ug/mL Ur Barbiturates Screen Negative (Negative) Ur Phencyclidine Scrn Negative (Negative) Ur Amphetamine Screen Negative (Negative) U Benzodiazepines Scrn Negative (Negative) Urine Cocaine Screen Negative (Negative) U Cannabinoids Screen Negative (Negative) Ethyl Alcohol 120 (<10) mg/dL Influenza A (RT-PCR) (Negative) Influenza B (RT-PCR) (Negative) RSV (RT-PCR) (Negative) SARS-CoV-2 RNA (RT-PCR) (Negative) Blood Type A Negative Antibody Screen Negative 05/28/24 05/28/24 Range/Units 08:55 10:10 WBC (4.5-10.0) K/mm3 RBC (4.6-6.20) M/mm3 Hgb (14.0-18.0) g/dL Hct (42.0-52.0) % MCV (80-100) fl MCH (26-34) pg MCHC (32-36) g/dl RDW (11.5-14.5) % Plt Count (150-375) k/mm3 MPV (7.4-10.4) fl Immature Gran % (Auto) (0-0.5) % Neut % (Auto) (45.5-73.1) % Lymph % (Auto) (18.3-44.2) % [place] % (Auto) (2.6-8.5) % Eos % (Auto) (0-4.4) % Baso % (Auto) (0.2-1.2) % Lymph # (Auto) (0.9-3.2) K/mm3 [place] # (Auto) (0.1-0.6) K/mm3 Eos # (Auto) (0-0.3) K/mm3 Baso # (Auto) (0.0-0.1) K/mm3 Abs Immat Gran (auto) (0.00-0.031) K/mm3 Absolute Neuts (auto) (1.3-6.7) K/mm3 Absolute Nucleated RBC (0.0-0.012) K/mm3 Nucleated RBC % (0.0-0.2) % PT (11.1-14.7) Seconds INR APTT (22.3-36.8) Seconds Sodium Potassium Chloride Carbon Dioxide Anion Gap BUN Creatinine 1.20 Estim Creat Clear Calc 45 Estimated GFR 58 L Glucose POC Capillary Glucose (65-105) mg/dl Lactic Acid (0.7-2.0) mmol/L Calcium Phosphorus (2.5-4.5) mg/dL Magnesium Total Bilirubin AST ALT Alkaline Phosphatase Total Creatine Kinase Troponin I (0.000-0.034) ng/mL NT-Pro-B Natriuret Pep Total Protein Albumin Lipase TSH (Reflex) (0.465-4.68) uIU/mL Urine Color (Yellow) Urine Appearance (Clear) Urine pH (5.0-9.0) Ur Specific [place] (1.001-1.035) Urine Protein (Negative) mg/dL Urine Glucose (UA) (Negative) mg/dL Urine Ketones (Negative) mg/dL Ur Blood (Man) (Negative) Urine Nitrate (Negative) Urine Bilirubin (Negative) Urine Urobilinogen (<2.0) mg/dL Leukocyte Esterase Rfl (Negative) GRIS/UL Urine Opiates Screen (Negative) Urine Methadone Screen (Negative) Acetaminophen (10-30) ug/mL Ur Barbiturates Screen (Negative) Ur Phencyclidine Scrn (Negative) Ur Amphetamine Screen (Negative) U Benzodiazepines Scrn (Negative) Urine Cocaine Screen (Negative) U Cannabinoids Screen (Negative) Ethyl Alcohol (<10) mg/dL Influenza A (RT-PCR) Negative (Negative) Influenza B (RT-PCR) Negative (Negative) RSV (RT-PCR) Negative (Negative) SARS-CoV-2 RNA (RT-PCR) Negative (Negative) Blood Type Antibody Screen ABG Data ABG results: 05/28/24 08:30 Puncture Site Right radial ABG pH 7.233 L* ABG pCO2 34.7 L ABG pO2 132.4 H ABG PO2/FiO2 Ratio 6.30 ABG HCO3 14.3 L ABG O2 Saturation 98.2 ABG O2 Content 17.4 ABG Base Excess -12.2 A-a Gradient < 0.0 Oxyhemoglobin 97.8 Total Hemoglobin 12.5 O2 Delivery Device Room air O2 Liters/Min Not Reportable FiO2 21 Critical Care Time Critical Care Time Critical Care Time: Yes Total Critical Care Time: 75 Discharge Plan Discharge Clinical Impression: Hypothermia, Acidosis, lactic, Alcohol intoxication, Leukocytosis, Encephalopathy, Abrasion Patient Disposition: Still a Patient Condition: Stable Prescriptions: No Action atorvastatin 40 mg Tablet 40 mg PO HS hydrocodone-acetaminophen 5-325 mg Tablet 1 tablet PO Q6H PRN (Reason: Pain) amlodipine 5 mg Tablet 5 mg PO DAILY isoniazid 300 mg Tablet 300 mg PO DAILY pyridoxine (vitamin B6) 50 mg Tablet 50 mg PO DAILY allopurinol 300 mg Tablet 300 mg PO DAILY hydrochlorothiazide 25 mg Tablet 25 mg PO DAILY clotrimazole [Antifungal (clotrimazole)] 1 % Cream TOPICAL PRN (Reason: Wound Care) naloxone 0.4 mg/0.4 mL Auto-Injector dorzolamide-timolol (PF) 2-0.5 % Drops 1 drp OPHTHALMIC (EYE) BID Rx Instructions: RIGHT EYE albuterol 2 inh QID PRN (Reason: Shortness Of Breath Or Wheezing) Striverdi Respimat 2.5 mcg/actuation Mist 2 INHALATION DAILY Follow-up/Referrals: UNKNOWN,DOCTOR [Primary Care Provider] -
--- NOTE | 2024-05-28 13:55 | P.HP_ITS ---
H&P: HPI History of Present Illness Date/Time: 05/28/24 15:00 Chief Complaint: Found down outside. 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 He was hypothermic and quite confused on arrival to the emergency department but now that he is warm he is alert and oriented x4 and is able to provide a pretty good history. He was in his usual state of health yesterday and went to a basketball game and then to the [facility] where he had several drinks with his friends. He returned home around midnight and when he got out of his truck he was feeling dizzy and he fell forward onto the ground. Throughout the night he made multiple attempts to get himself up from the ground to no avail. He has severe osteoarthritis in both knees and it is to the point where he has difficulties standing up from a chair. He remembers crawling around the driveway and trying to find something to help himself up until eventually he gave up. He had his cell phone in his pocket but did not call for help for unclear reasons. With further questioning he reports having dizzy spells recently for which he has seen his doctors at the [place] and he has at least had an echocardiogram done fairly recently. He has difficulties describing what he means by dizzy and denies both feelings of abnormal motion and lightheadedness. He describes neuropathy symptoms in his legs, feet, and arms and this has been ongoing for quite some time. He denies loss of consciousness in the fall last night and he reports having all over body aches but no articular complaints at the time my evaluation. He denies fever, cold and flu symptoms, chest pain, pleuritic pain, palpitations, orthopnea, paroxysmal nocturnal dyspnea, cough, abdominal pain, nausea, vomiting, diarrhea, dysuria, visual changes, focal weakness, facial droop, and difficulty speaking and swallowing. In the ED: His temperature was 85.3? F on arrival with the remainder of his v ital signs being stable. Labs were significant for WBC count 21.4, hemoglobin 11.9, sodium 132, carbon dioxide 18, anion gap 13, BUN 34, creatinine 1.20, glucose 124, lactic acid 7.8, total creatinine kinase 259, proBNP 1160, total protein 6.0, albumin 3.2. Drug screen was positive for opiates. Ethyl alcohol was 120. Numerous radiographs were negative for acute findings. CT scans of the head, cervical spine, and facial bones were without acute findings. CT scans of the chest, abdomen, and pelvis showed prominent amount of fecal material in the colon and suspected esophagitis. He was placed under a Gene Hugger and his temperature is now normal. He received a 3 L normal saline bolus with normalization of lactic acid level. He was also given vancomycin and piperacillin/tazobactam for possible underlying infection and he is being admitted in this setting for further treatment and evaluation. Review of Systems Review of Systems: Twelve systems were reviewed. His 22 months ago and he is understandably still depressed about that. He denies harmful thoughts and specifically denies suicidal ideation. He drinks 3 to 4 Budweisers a night, sometimes more if he is out with his friends at the [facility]. He has never had signs or symptoms of alcohol withdrawal and has no history of seizures. Except as documented, all other systems were reviewed and are negative. [facility] Past Medical History Medical History (Updated 05/28/24 @ 19:55 by Deborah Guerrero PA-C) Chronic obstructive pulmonary disease Chronic pain syndrome Chronic prescription opiate use Coronary artery disease Daily consumption of alcohol Glaucoma Gout Hyperlipidemia Hypertension Kidney stones Latent tuberculosis Vitamin B12 deficiency Surgical History Surgical History (Updated 05/28/24 @ 19:47 by Deborah Guerrero PA-C) History of cataract extraction History of coronary artery bypass graft x 3 (2003) History of coronary artery stent placement x2 History of detached retina repair History of hernia repair Family History Family History (Updated 05/28/24 @ 19:47 by Deborah Guerrero PA-C) Other Family history non-contributory Social History Social History (Updated 05/28/24 @ 19:48 by Deborah Guerrero PA-C) Social History: Surrogate medical decision maker: Jeannette Abdi, Conor Ramsey (children). Code status: Full code. Smoking packs per day: 2 Smoking cigarettes per day: 40.0 Years smoked: 45 Smoking pack-years: 90.00 Smoking status: Former smoker Tobacco type: cigarettes Additional smoking assessment comments: 2003 Alcohol intake: current Drinks per week: 25 Alcohol use details: 3 to 4 beers a night Substance use: current Substance use type: marijuana Last use: 05/08/2024 Do You Feel Safe in your Home?: Yes Lack of Transportation: YES Lack of Food: Never True Current Housing: I Have Housing Concerned About Future Housing: No Difficulty Paying Gas/Electric Bills: No Difficulty Paying for Meds: No Currently Unemployed: No Education: Bachelor's Degree Difficulty w/ Childcare or Family Care: No Additional living arrangements comments: since 2022. He has 3 children. Lives alone in [place]. Additional occupation/education comments: Was in the [employer] for 3.5 years and served overseas in [place]. Spiritual care concerns: No Meds Home Medications and Allergies Home Medications Medication Instructions Recorded Confirmed Type albuterol 2 inh BYMOUTH QID PRN Shortness Of 05/28/24 05/28/24 History Breath Or Wheezing allopurinol 300 mg tablet 300 mg PO HS 05/28/24 05/28/24 History amlodipine 5 mg tablet 5 mg PO HS 05/28/24 05/28/24 History aspirin 81 mg tablet 81 mg PO DAILY 05/28/24 05/28/24 History atorvastatin 40 mg tablet 40 mg PO HS 05/28/24 05/28/24 History cholecalciferol (vitamin D3) 25 1,000 unit PO HS 05/28/24 05/28/24 History mcg (1,000 unit) tablet (Vitamin D3) dorzolamide 2 %-timolol 0.5 % (PF) 1 drp ophthalmic (eye) BID 05/28/24 05/28/24 History eye drops hydrochlorothiazide 25 mg tablet 25 mg PO DAILY 05/28/24 05/28/24 History hydrocodone 5 mg-acetaminophen 325 1 tablet PO Q6H PRN Pain 05/28/24 05/28/24 History mg tablet isoniazid 300 mg tablet 300 mg PO DAILY 05/28/24 05/28/24 History naloxone 0.4 mg/0.4 mL injection, 0.4 mg IM DAILY 05/28/24 05/28/24 History auto-injector olodaterol 2.5 mcg/actuation mist 2 puff inhalation DAILY 05/28/24 05/28/24 History for inhalation (Striverdi Respimat) pyridoxine (vitamin B6) 50 mg 50 mg PO DAILY 05/28/24 05/28/24 History tablet vitamin B complex 1 tablet PO DAILY 05/28/24 05/28/24 History Allergies Allergy/AdvReac Type Severity Reaction Status Date / Time Sulfa (Sulfonamide Allergy Unknown Verified 05/28/24 18:08 Antibiotics) Vital Signs Vital Signs - 24 hr 05/28/24 08:11 05/28/24 09:14 05/28/24 09:15 Temperature 85.3 F L 86.0 F L 86.1 F L Pulse Rate 89 79 80 Respiratory Rate 17 16 17 Blood Pressure 147/93 H 147/109 H Pulse Oximetry 100 99 100 Oxygen Delivery Room Air 05/28/24 09:17 05/28/24 09:30 05/28/24 09:32 Temperature 86.2 F L 87.0 F L 87.1 F L Pulse Rate 81 77 76 Respiratory Rate 17 18 17 Blood Pressure 167/113 H Pulse Oximetry 100 100 Oxygen Delivery 05/28/24 09:45 05/28/24 10:00 05/28/24 10:01 Temperature 87.9 F L 88.7 F L 88.8 F L Pulse Rate 72 81 80 Respiratory Rate 18 17 17 Blood Pressure 138/66 Pulse Oximetry 100 100 Oxygen Delivery 05/28/24 10:02 05/28/24 10:15 05/28/24 10:16 Temperature 88.9 F L 89.5 F L 89.5 F L Pulse Rate 78 81 78 Respiratory Rate 19 17 18 Blood Pressure 155/65 H Pulse Oximetry 100 100 100 Oxygen Delivery 05/28/24 10:30 05/28/24 10:31 05/28/24 10:52 Temperature 90.4 F L 90.4 F L 91.6 F L Pulse Rate 86 88 84 Respiratory Rate 18 18 17 Blood Pressure 137/71 Pulse Oximetry 100 100 Oxygen Delivery 05/28/24 11:04 05/28/24 11:15 05/28/24 11:16 Temperature 92.2 F L 92.9 F L 92.9 F L Pulse Rate 87 88 87 Respiratory Rate 18 16 15 Blood Pressure 124/64 Pulse Oximetry 99 99 Oxygen Delivery 05/28/24 11:45 05/28/24 12:00 05/28/24 12:27 Temperature 94.1 F L 94.6 F L 95.5 F L Pulse Rate 95 88 92 Respiratory Rate 14 17 16 Blood Pressure Pulse Oximetry 100 99 98 Oxygen Delivery 05/28/24 12:30 05/28/24 12:31 05/28/24 12:45 Temperature 95.6 F L 95.6 F L 96.1 F L Pulse Rate 88 95 101 H Respiratory Rate 15 17 17 Blood Pressure 121/70 Pulse Oximetry 98 97 100 Oxygen Delivery 05/28/24 12:46 05/28/24 13:00 05/28/24 13:01 Temperature 96.1 F L 96.6 F L 96.6 F L Pulse Rate 95 95 92 Respiratory Rate 18 16 18 Blood Pressure 110/70 109/72 Pulse Oximetry 98 98 98 Oxygen Delivery Exam Narrative: General: Ill-appearing gentleman the semi-Bean position in bed. Weight: 90.1 kg. BMI: 26.2. HEENT: Multiple bruises and abrasions to the face. Pupils are reactive and extraocular motions are intact. Sclera anicteric. Conjunctiva mildly injected. Right eyelid is more swollen compared to the left. Small abrasion over the bridge of the nose. Lips are swollen. Tacky mucous membranes. Neck: Supple. No midline vertebral tenderness. Respiratory: Respirations are nonlabored and he is speaking in full sentences. Lung sounds clear to auscultation. Cardiovascular: Tachycardic with normal S1-S2. Well-healed sternotomy. Gastrointestinal: Abdomen is soft, nontender, and nondistended with positive bowel sounds. Skin: He is warm at the time my evaluation, currently under a Gene Hugger. Normal capillary refill. Nearly head to toe abrasions and skin tears including on the face and extremities as well as the pads of the fingers and toes. Extremities: No cyanosis or clubbing. Mild edema of all the extremities. Peripheral pulses intact. Neurological: Alert and oriented x4 at the time my evaluation. Cranial nerves 2-12 are grossly intact. Speech is clear. No pronator drift. No facial asymmetry. No gross focal deficits to casual conversation. Psychiatric: Pleasant and cooperative with appropriate mood and affect. H&P: Results Labs Labs: Short CBC 05/28/24 Range/Units 08:41 WBC 21.4 H (4.5-10.0) K/mm3 Hgb 11.9 L (14.0-18.0) g/dL Hct 34.8 L (42.0-52.0) % Plt Count 150 (150-375) k/mm3 BMP 05/28/24 05/28/24 05/28/24 08:41 08:41 08:41 Sodium Cancelled 132 L Potassium Cancelled 4.6 Chloride Cancelled Carbon Dioxide BUN Creatinine Glucose Calcium 05/28/24 05/28/24 05/28/24 08:41 08:41 08:41 Sodium Potassium Chloride 101 Carbon Dioxide Cancelled 18 L BUN Cancelled 34 H Creatinine Cancelled Glucose Calcium 05/28/24 05/28/24 05/28/24 08:41 08:41 08:41 Sodium Potassium Chloride Carbon Dioxide BUN Creatinine 1.10 Glucose Cancelled 124 H Calcium Cancelled 7.3 L 05/28/24 08:55 Sodium Potassium Chloride Carbon Dioxide BUN Creatinine 1.20 Glucose Calcium Cardiac Enzymes 05/28/24 05/28/24 Range/Units 08:41 08:41 Total Creatine Kinase Cancelled 259 H Troponin I 0.026 (0.000-0.034) ng/mL Liver Function 05/28/24 05/28/24 05/28/24 Range/Units 08:41 08:41 08:41 Total Bilirubin Cancelled 0.8 AST Cancelled 42 ALT Cancelled Alkaline Phosphatase Albumin 05/28/24 05/28/24 05/28/24 Range/Units 08:41 08:41 08:41 Total Bilirubin AST ALT 31 Alkaline Phosphatase Cancelled 56 Albumin Cancelled 3.2 L Urine 05/28/24 Range/Units 08:47 Urine Color Yellow (Yellow) Urine Appearance Clear (Clear) Urine pH 5.0 (5.0-9.0) Ur Specific [place] 1.016 (1.001-1.035) Urine Protein Negative (Negative) mg/dL Urine Glucose (UA) Negative (Negative) mg/dL Imaging Head CT 05/28/24 09:57 IMPRESSION: Cerebral atherosclerosis and chronic small vessel ischemic changes of the cerebral white matter No skull fracture or acute intracranial finding Head/Cervical Spine/Facial Bones CT 05/28/24 10:03 IMPRESSION: No facial fracture Cervical spondylosis; no fracture or dislocation or locked facet of the cervical spine Chest CTA 05/28/24 10:10 IMPRESSION: No evidence of pulmonary embolism Prominent coronary artery atherosclerosis Small sliding hiatal hernia Esophagitis is suspected Cholelithiasis Elbow X-Ray 05/28/24 10:44 IMPRESSION: Negative left elbow Elbow X-Ray 05/28/24 10:45 IMPRESSION: Limited examination due to apparent extravasated radiopaque contrast material No obvious fracture, dislocation or joint effusion Hand X-Ray 05/28/24 10:48 IMPRESSION: Osteopenia Comment calcinosis of trying of the cartilage and wrist joint Polyarticular osteoarthritis No recent fracture or dislocation is detected Hand X-Ray 05/28/24 10:51 IMPRESSION: No recent fracture or dislocation is evident Polyarticular osteoarthritis Osteopenia Mild scapholunate dissociation Mild carpal chondrocalcinosis Foot X-Ray 05/28/24 10:57 IMPRESSION: Osteopenia; no fracture or dislocation Foot X-Ray 05/28/24 11:02 IMPRESSION: Osteopenia Mild plantar calcaneal enthesopathy No recent fracture or dislocation Knee X-Ray 05/28/24 11:04 IMPRESSION: Osteopenia Mild osteoarthritis No fracture or dislocation or joint effusion Knee X-Ray 05/28/24 11:06 IMPRESSION: Osteopenia Osteoarthritis involving primarily the lateral compartment Chondrocalcinosis No fracture or dislocation or joint effusion Abdomen/Pelvis CT 05/28/24 12:40 IMPRESSION: Status post sternotomy Minimal infiltrate or atelectasis in the dependent right lower lobe Small sliding hiatal hernia Cholelithiasis Occasional bilateral renal cysts Prominent amount of fecal material in the rectum and sigmoid colon; no bowel obstruction or free air Diverticulosis of left and right colon; no evidence of diverticulitis Normal appendix Assessment and Plan Assessment and plan (1) Hypothermia: Code(s): T68.XXXA - Hypothermia, initial encounter Status: Acute (2) Lactic acidosis: Code(s): E87.20 - Acidosis, unspecified Status: Acute (3) Encephalopathy: Code(s): G93.40 - Encephalopathy, unspecified Status: Resolved (4) Fall from ground level: Code(s): W18.30XA - Fall on same level, unspecified, initial encounter Status: Acute (5) Macrocytic anemia: Code(s): D53.9 - Nutritional anemia, unspecified Status: Acute (6) Daily consumption of alcohol: Code(s): Z78.9 - Other specified health status Status: Acute (7) Chronic prescription opiate use: Code(s): Z79.891 - long-term (current) use of opiate analgesic Status: Acute (8) Coronary artery disease: Code(s): I25.10 - Atherosclerotic heart disease of [place] coronary artery without angina pectoris Status: Acute (9) Chronic obstructive pulmonary disease: Code(s): J44.9 - Chronic obstructive pulmonary disease, unspecified Status: Acute (10) Hypertension: Code(s): I10 - Essential (primary) hypertension Status: Acute (11) Latent tuberculosis: Code(s): Z22.7 - Latent tuberculosis Status: Acute Plan The patient presented to the emergency department for evaluation after he was found outside with multiple abrasions and bruises as detailed in HPI. Labs, imaging, EKG, and all reports were personally reviewed. He was encephalopathic on arrival to the ED which is likely due to a combination of hypothermia and intoxication. Now that his body is back to normal temperature he is alert and oriented x4. Luckily he did not sustain any significant injuries aside from superficial bruising and abrasion. He has dizzy spells for which he is [facility] currently and he at least had an echocardiogram done within the last couple of weeks and that record has been requested. He describes neuropathy, possibly related to alcohol abuse, which could be contributing to his poor balance. Brain MR may be appropriate to rule out posterior circulation stroke though that seems less likely. Consult PT/OT and initiate fall precautions. With regards to the lactic acidosis, this is likely related to hypothermia and lactic acid level has normalized with fluids. Check iron studies, B12, and folate for evaluation of macrocytic anemia. Total CK is a bit elevated and will be trended. He denies ever having signs or symptoms of alcohol withdrawal though will initiate CIWA protocol. Start thiamine and folic acid supplementation. Discontinue antibiotics as there is no evidence to suggest i nfection. He has chronic pain syndrome and hydrocodone will be continued. Start daily MiraLax as he has quite a bit of stool in his colon on imaging today. Continue isoniazid which he is taking for latent tuberculosis. The rest of his home medications will be reviewed and resumed as appropriate. Findings and treatment plan were discussed with the patient. Questions were solicited and answered to satisfaction. The patient's medical management will be taken over by the hospitalist team in a.m. Quality VTE Prophylaxis VTE prophylaxis: mechanical ordered If No VTE Prophylaxis Answer both mechanical and pharmacologic: Reason no pharmacologic proph: medical contraindication (fall risk) Hospitalist [facility] Advance Care Plan I have confirmed that the patient's Advanced Care Plan is present, code status is documented, or surrogate decision maker is listed in patient medical record.: Yes Medication Reconciliation I have utilized all available resources to obtain, update and review the patients current medications (includes all prescriptions, OTC, herbals, cannabis, and nutritional supplements).: Yes
[2024-05-28] MEDS: PIPERACILLN/TAZ 3.375GM/NS50ML 3.375 GM/50 ML BAG IVPB ×2 (14:27→19:55)
[2024-05-28] MEDS: VANCOMYCIN 1,250 MG/NS 250 ML 1,250 MG/250 ML BAG 166.67 MG IVPB (14:31)
[2024-05-28 14:51] LABS: Lactic Acid 1.9 mmol/L (0.7-2.0)
[2024-05-28 15:37] LABS: Folic Acid 7.4 ng/mL (2.76->20)
[2024-05-28 15:39] LABS: Iron 106 ug/dL (49-181)
[2024-05-28 15:48] LABS: Percent Iron Saturation 46 % (20-50)
[2024-05-28] MEDS: VANCOMYCIN 1,000 MG/NS 250 ML 1,000 MG/250 ML BAG 250 MG IVPB (16:56)
[2024-05-28] MEDS: MORPHINE SULFATE (*CRX) 4 MG/ML INJ IV PUSH (17:02)
[2024-05-28] MEDS: LACTATED RINGERS 1,000 ML 125 ML IV CONT (18:15)
[2024-05-28] MEDS: HYDROcodone/acetaminophen (*CRX) 5-325 MG TABLET 1 TAB PO (18:15)
--- NOTE | 2024-05-28 18:26 | ADMGEN ---
This patient, Chin Baldwin, was admitted to IMU Room 231-01 on 05/28/24 at 1729. Patient/family oriented to hospital policies and general routines including ID bracelet, bed and alarms, visiting hours, pain management, procedures, bathroom and other care routines, personal items, smoking policy, room service/diet, and visiting hours. Information on how to activate the Rapid Response Team has been discussed. Patient/Family are encouraged to report perceived risks to care and to ask questions if they do not understand what they are told or what they should do.
[2024-05-28 21:45] LABS: Alanine Aminotransferase 34 U/L (6-50); Albumin Level 2.6 g/dL (3.5-5.1); Alkaline Phosphatase 53 U/L (38-126); Anion Gap 7 mmol/L (4-12); Aspartate Amino Transferase 59 U/L (17-59); Bilirubin,Total 1.4 mg/dL (0.2-1.3); Blood Urea Nitrogen 33 mg/dL (9-20); Calcium 6.8 mg/dL (8.4-10.2); Carbon Dioxide 16 mmol/L (22-30); Chloride 105 mmol/L (98-107); Creatine Kinase 690 U/L (55-170); Estimated CRCL calculation 72 ml/min; Estimated Glomerular Filt Rate > 60; Glucose 54 mg/dL (65-110); Magnesium 1.6 mg/dL (1.6-2.3); Potassium 4.3 mmol/L (3.4-5.0); Sodium 128 mmol/L (137-145)
[2024-05-28] MEDS: ATORVASTATIN 40 MG TABLET PO (22:00)
[2024-05-28] MEDS: allopurinoL 300 MG TABLET PO (22:00)
[2024-05-28] MEDS: HYDROmorphone HCL INJ (*CRX) 1 MG/ML SYR 0.5 MG IV PUSH (22:01)
[2024-05-28] MEDS: CHOLECALCIFEROL 1,000 UNITS TABLET 1000 UNITS PO (22:01)
[2024-05-28] MEDS: THIAMINE HCL 200 MG/2 ML VIAL 100 MG IV PUSH (22:13)
[2024-05-28] MEDS: DORZOLAMIDE/TIMOLOL OPHTH SOL 10 ML BOTTLE 1 DROP EACH EYE (22:13)
[2024-05-28] MEDS: DEXTROSE 5%/0.9% SOD CHL 1,000 ML 100 ML IV CONT (22:14)
[2024-05-28] MEDS: CALCIUM GLUC 2,000 MG/NS 100ML 2,000 MG/100 ML BAG 100 MG IVPB (22:14)
[2024-05-28 22:17] LABS: Thyroid Stimulating Hormone Reflex 0.763 uIU/mL (0.465-4.68)
[2024-05-28 22:40] LABS: Glucose Point of Care 133 mg/dl (65-105)
[2024-05-28] MEDS: SALMETEROL XINAFOATE 50 MCG DISKUS 1 PUFF INHALATION (22:45)
[2024-05-29] VITALS (16 sets, daily range): BP systolic 120–145; BP diastolic 66–71; PULSE 86–120; RESP 14–24; TEMP 36.4–36.7; O2SAT 98–100
[2024-05-29 01:31] LABS: Anion Gap 3 mmol/L (4-12); Blood Urea Nitrogen 30 mg/dL (9-20); Calcium 7.6 mg/dL (8.4-10.2); Carbon Dioxide 17 mmol/L (22-30); Chloride 106 mmol/L (98-107); Creatine Kinase 674 U/L (55-170); Estimated CRCL calculation 72 ml/min; Estimated Glomerular Filt Rate > 60; Glucose 96 mg/dL (65-110); Magnesium 1.8 mg/dL (1.6-2.3); Potassium 4.9 mmol/L (3.4-5.0); Sodium 126 mmol/L (137-145)
[2024-05-29] MEDS: HYDROmorphone HCL INJ (*CRX) 1 MG/ML SYR 0.5 MG IV PUSH ×4 (04:18→18:05)
[2024-05-29 05:37] LABS: Fractional Inspired Oxygen 21 %; HCO3 VBG 14.6 mEq/l (24.0-30.0); PO2 VBG 149.5 mmHg (35.0-45.0)
[2024-05-29 05:38] LABS: Hematocrit 34.4 % (42.0-52.0); Hemoglobin 10.9 g/dL (14.0-18.0); Mean Corpuscular HGB Conc 31.7 g/dl (32-36); Mean Corpuscular Volume 107.2 fl (80-100); Mean Platelet Volume 11.7 fl (7.4-10.4); Platelet Count Result 112 k/mm3 (150-375); Red Blood Count 3.21 M/mm3 (4.6-6.20); Red Cell Distribution Width 13.7 % (11.5-14.5); White Blood Count 16.8 K/mm3 (4.5-10.0)
[2024-05-29 05:42] LABS: PCO2 VBG 17.4 mmHg (42.0-48.0); pH VBG 7.541 (7.300-7.400)
[2024-05-29 05:43] LABS: Device ROOM AIR
[2024-05-29 05:52] LABS: Alanine Aminotransferase 37 U/L (6-50); Albumin Level 2.7 g/dL (3.5-5.1); Alkaline Phosphatase 57 U/L (38-126); Anion Gap 5 mmol/L (4-12); Aspartate Amino Transferase 60 U/L (17-59); Bilirubin,Total 1.4 mg/dL (0.2-1.3); Blood Urea Nitrogen 28 mg/dL (9-20); Calcium 7.4 mg/dL (8.4-10.2); Carbon Dioxide 17 mmol/L (22-30); Chloride 106 mmol/L (98-107); Creatine Kinase 540 U/L (55-170); Estimated CRCL calculation 72 ml/min; Estimated Glomerular Filt Rate > 60; Glucose 89 mg/dL (65-110); Magnesium 1.8 mg/dL (1.6-2.3); Potassium 4.6 mmol/L (3.4-5.0); Sodium 128 mmol/L (137-145)
[2024-05-29 07:11] LABS: Creatinine Urine 40.2 mg/dL; Urea Random Urine 490 MG/DL
[2024-05-29 07:17] LABS: Sodium Urine Random 155 meq/L
[2024-05-29] MEDS: SALMETEROL XINAFOATE 50 MCG DISKUS 1 PUFF INHALATION ×2 (08:30→20:58)
[2024-05-29] MEDS: THERAPEUTIC MULTIVITAMINS/MINERALS TAB (*BKC) 1 TABLET PO (09:30)
[2024-05-29] MEDS: VITAMIN B COMPLEX CAPSULE 1 CAP PO (09:30)
[2024-05-29] MEDS: FOLIC ACID 1 MG TABLET PO (09:30)
[2024-05-29] MEDS: PYRIDOXINE HCL 50 MG TABLET PO (09:30)
[2024-05-29] MEDS: THIAMINE HCL 100 MG TABLET PO (09:30)
[2024-05-29] MEDS: ISONIAZID 100 MG TABLET 300 MG PO (09:30)
[2024-05-29] MEDS: DORZOLAMIDE/TIMOLOL OPHTH SOL 10 ML BOTTLE 1 DROP EACH EYE ×2 (09:30→17:51)
[2024-05-29] MEDS: polyethylene glycoL 3350 17 GM POWD.PACK PO (09:30)
[2024-05-29] MEDS: ASPIRIN 81 MG CHEWABLE TABLET PO (09:30)
--- NOTE | 2024-05-29 09:37 | PCOTNOTE ---
Attempted to see patient for OT evaluation. Patient adamantly declining any and all activity at this time. He states he is not feeling ready to get out of bed yet this morning. Will continue to attempt.
[2024-05-29] MEDS: chlordiazePOXIDE (*CRX) 25 MG CAPSULE PO (09:41)
[2024-05-29 12:26] LABS: Glucose Point of Care 145 mg/dl (65-105)
[2024-05-29] MEDS: LIDOCAINE HCL 1% PF INJ 5 ML VIAL INFILTRATE (13:41)
[2024-05-29] MEDS: CENTRAL LINE FLUSH 10 ML IV PUSH ×2 (14:24→21:44)
[2024-05-29 14:41] LABS: Anion Gap 2 mmol/L (4-12); Blood Urea Nitrogen 27 mg/dL (9-20); Calcium 7.8 mg/dL (8.4-10.2); Carbon Dioxide 22 mmol/L (22-30); Chloride 105 mmol/L (98-107); Estimated CRCL calculation 65 ml/min; Estimated Glomerular Filt Rate > 60; Glucose 107 mg/dL (65-110); Sodium 129 mmol/L (137-145)
[2024-05-29 15:55] LABS: Glucose Point of Care 113 mg/dl (65-105)
--- NOTE | 2024-05-29 17:25 | PM.IMPN ---
Progress Note: A&P Assessment and Plan (1) Hypothermia: Code(s): T68.XXXA - Hypothermia, initial encounter Status: Acute (2) Lactic acidosis: Code(s): E87.20 - Acidosis, unspecified Status: Acute (3) Encephalopathy: Code(s): G93.40 - Encephalopathy, unspecified Status: Resolved (4) Fall from ground level: Code(s): W18.30XA - Fall on same level, unspecified, initial encounter Status: Acute (5) Macrocytic anemia: Code(s): D53.9 - Nutritional anemia, unspecified Status: Acute (6) Daily consumption of alcohol: Code(s): Z78.9 - Other specified health status Status: Acute (7) Chronic prescription opiate use: Code(s): Z79.891 - penitentiary (current) use of opiate analgesic Status: Acute (8) Coronary artery disease: Code(s): I25.10 - Atherosclerotic heart disease of resighini coronary artery without angina pectoris Status: Acute (9) Chronic obstructive pulmonary disease: Code(s): J44.9 - Chronic obstructive pulmonary disease, unspecified Status: Acute (10) Hypertension: Code(s): I10 - Essential (primary) hypertension Status: Acute (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 CT scans of the chest, abdomen, and pelvis showed prominent amount of fecal material in the colon no fractures patient denies any syncope patient noted he was been worked up for Dizziness at [facility] records requested PT/OT lactic acidosis, from hypothermia resolved continue IVF Elevated CK Ck 674, repeat 540 continue IVF monitor Macrocytic anemia Hb 10.9, MCV 107.2 Likely from alcohol abuse B12 and folate within normal multiple wound on knees and feet Wound care consulted Alcohol intoxication patient counseled about alcohol cessation continue CIWA protocol, thiamine and Folic acid Latent TB Continue Isoniazid and Pyridoxine COPD continue home bronchodilators HTN titrate home meds with clinical course hx of Opioids prescription abuse counseled, monitor DVT prophylaxis on Sq Lovenox Subjective Date/time seen: 05/29/24 17:25 Interval history: Comfortable at bedside Noted he came back from an outing with a friend and fell in front of his house and unable to get up. denies LOC. Exam Narrative: General: Ill-appearing gentleman the semi-Bean position in bed. Weight: 90.1 kg. BMI: 26.2. HEENT: Multiple bruises and abrasions to the face. Pupils are reactive and extraocular motions are intact. Sclera anicteric. Conjunctiva mildly injected. Right eyelid is more swollen compared to the left. Small abrasion over the bridge of the nose. Lips are swollen. Tacky mucous membranes. Neck: Supple. No midline vertebral tenderness. Respiratory: Respirations are nonlabored and he is speaking in full sentences. Lung sounds clear to auscultation. Cardiovascular: Tachycardic with normal S1-S2. Well-healed sternotomy. Gastrointestinal: Abdomen is soft, nontender, and nondistended with positive bowel sounds. Skin: He is warm at the time my evaluation, currently under a Gene Hugger. Normal capillary refill. Nearly head to toe abrasions and skin tears including on the face and extremities as well as the pads of the fingers and toes. Extremities: No cyanosis or clubbing. Mild edema of all the extremities. Peripheral pulses intact. Neurological: Alert and oriented x4 at the time my evaluation. Cranial nerves 2-12 are grossly intact. Speech is clear. No pronator drift. No facial asymmetry. No gross focal deficits to casual conversation. Psychiatric: Pleasant and cooperative with appropriate mood and affect. Objective Data Vital Signs Vital Signs: Vital Signs - 24 hr 05/28/24 17:29 05/28/24 18:00 05/28/24 17:37 Temperature Pulse Rate 107 H 99 Pulse Rate [Bilateral Pedal (Dorsalis Pedis) Palpation] Respiratory Rate Blood Pressure Pulse Oximetry Oxygen Delivery Room Air Fraction of Inspired Oxygen 05/28/24 19:59 05/28/24 21:09 05/28/24 22:48 Temperature 99.3 F Pulse Rate 113 H Pulse Rate [Bilateral Pedal (Dorsalis Pedis) Palpation] 103 H Respiratory Rate 14 Blood Pressure 115/57 L Pulse Oximetry 97 97 Oxygen Delivery Room Air Fraction of Inspired Oxygen 05/28/24 20:00 05/28/24 23:54 05/29/24 00:00 Temperature 98.1 F Pulse Rate 104 H Pulse Rate [Bilateral Pedal (Dorsalis Pedis) Palpation] 120 H Respiratory Rate 14 Blood Pressure 148/87 H Pulse Oximetry 99 Oxygen Delivery Room Air Fraction of Inspired Oxygen 05/29/24 00:00 05/28/24 20:00 05/29/24 00:00 Temperature Pulse Rate 99 94 Pulse Rate [Bilateral Pedal (Dorsalis Pedis) Palpation] Respiratory Rate Blood Pressure Pulse Oximetry Oxygen Delivery Room Air Fraction of Inspired Oxygen 05/28/24 22:00 05/29/24 02:00 05/29/24 04:13 Temperature 98.1 F Pulse Rate 102 H 86 93 Pulse Rate [Bilateral Pedal (Dorsalis Pedis) Palpation] Respiratory Rate 14 Blood Pressure 139/67 Pulse Oximetry 100 Oxygen Delivery Fraction of Inspired Oxygen 05/29/24 04:00 05/29/24 04:00 05/29/24 04:00 Temperature Pulse Rate 93 Pulse Rate [Bilateral Pedal (Dorsalis Pedis) Palpation] 101 H Respiratory Rate Blood Pressure Pulse Oximetry Oxygen Delivery Room Air Fraction of Inspired Oxygen 05/29/24 06:00 05/29/24 08:00 05/29/24 08:30 Temperature 97.9 F Pulse Rate 90 103 H Pulse Rate [Bilateral Pedal (Dorsalis Pedis) Palpation] Respiratory Rate 24 H Blood Pressure 145/69 H Pulse Oximetry 99 98 Oxygen Delivery Room Air Fraction of Inspired Oxygen 21 05/29/24 11:18 05/29/24 12:00 05/29/24 08:00 Temperature 97.9 F Pulse Rate 108 H Pulse Rate [Bilateral Pedal (Dorsalis Pedis) Palpation] Respiratory Rate 16 Blood Pressure 120/71 Pulse Oximetry 100 Oxygen Delivery Room Air Room Air Fraction of Inspired Oxygen 05/29/24 08:00 05/29/24 10:00 05/29/24 12:00 Temperature Pulse Rate 88 108 H Pulse Rate [Bilateral Pedal (Dorsalis Pedis) Palpation] Respiratory Rate Blood Pressure Pulse Oximetry Oxygen Delivery Room Air Fraction of Inspired Oxygen 05/29/24 12:00 05/29/24 14:00 Temperature Pulse Rate 119 H 101 H Pulse Rate [Bilateral Pedal (Dorsalis Pedis) Palpation] Respiratory Rate Blood Pressure Pulse Oximetry Oxygen Delivery Fraction of Inspired Oxygen Intake/Output Intake/Output: Intake & Output 05/26/24 05/27/24 05/28/24 05/29/24 23:59 23:59 23:59 23:59 Intake Total 3300 551.7 Output Total 800 Balance 3300 -248.3 Meds/Results Medications: Active Medications Generic Name Dose Route Start Last Admin Trade Name Freq PRN Reason Stop Dose Admin Hydrocodone Bitart/Acetaminophen 1 tab 05/28/24 17:57 05/28/24 18:15 Hydrocodone/Acetaminophen (*Crx) 5-325 Mg Tablet PO 1 tab Q6H PRN Administration Pain Rated 4-6 Albuterol 2 puff 05/28/24 20:08 Albuterol Sulfate (*Sp) Aerosol 1 Puff INHALATION QIDRT PRN Shortness Of Breath Allopurinol 300 mg 05/28/24 21:00 05/28/24 22:00 Allopurinol 300 Mg Tablet PO 300 mg HS NIDIA Administration Amlodipine Besylate 5 mg 05/29/24 21:00 Amlodipine Besylate 5 Mg Tablet PO HS NIDIA Aspirin 81 mg 05/29/24 09:00 05/29/24 09:30 Aspirin 81 Mg Chewable Tablet PO 81 mg DAILY NIDIA Administration Atorvastatin Calcium 40 mg 05/28/24 21:00 05/28/24 22:00 Atorvastatin 40 Mg Tablet PO 40 mg HS NIDIA Administration Chlordiazepoxide HCl 25 mg 05/28/24 21:56 05/29/24 09:41 Chlordiazepoxide (*Crx) 25 Mg Capsule PO 25 mg Q8H PRN Administration withdrawal symptoms & CIWA < 8 Dorzolamide/Timolol 1 drop 05/28/24 20:30 05/29/24 09:30 Dorzolamide/Timolol Ophth Alicia 10 Ml Bottle EACH EYE 1 drop BID NIDIA Administration Folic Acid 1 mg 05/29/24 09:00 05/29/24 09:30 Folic Acid 1 Mg Tablet PO 1 mg DAILY NIDIA Administration Hydromorphone HCl 0.5 mg 05/28/24 20:05 05/29/24 14:09 Hydromorphone Hcl Inj (*Crx) 1 Mg/Ml Syr IV PUSH 0.5 mg Q3H PRN Administration Pain Rated 7-10 Sodium Chloride 1,000 mls @ 125 mls/hr 05/29/24 16:50 Normal Saline Iv IV CONT .Q8H NIDIA Isoniazid 300 mg 05/29/24 09:00 05/29/24 09:30 Isoniazid 100 Mg Tablet PO 300 mg DAILY NIDIA Administration Lorazepam 1 mg 05/28/24 21:56 Lorazepam Inj (*Crx) 2 Mg/Ml Vial IV PUSH Q2H PRN CIWA 8-15 Lorazepam 2 mg 05/28/24 21:56 Lorazepam Inj (*Crx) 2 Mg/Ml Vial IV PUSH Q2H PRN CIWA > 15 Multivitamins/Calcium 1 tablet 05/29/24 09:00 05/29/24 09:30 Therapeutic Multivitamins/Minerals Tab (*Bkc) PO 1 tablet QAM NIDIA Administration Polyethylene Glycol 17 gm 05/29/24 09:00 05/29/24 09:30 Polyethylene Glycol 3350 17 Gm Powd.Pack PO 17 gm QAM NIDIA Administration Pyridoxine HCl 50 mg 05/29/24 09:00 05/29/24 09:30 Pyridoxine Hcl 50 Mg Tablet PO 50 mg DAILY NIDIA Administration Salmeterol Xinafoate 1 puff 05/28/24 20:30 05/29/24 08:30 Salmeterol Xinafoate 50 Mcg Diskus INHALATION 1 puff Q12HRT NIDIA Administration Sodium Chloride 10 ml 05/29/24 14:00 05/29/24 14:24 Central Line Flush IV PUSH 10 ml Q8HR NIDIA Administration Sodium Chloride 10 ml 05/29/24 14:00 Central Line Flush IV PUSH PRN PRN with TPN bag changes Sodium Chloride 20 ml 05/29/24 14:00 Central Line Flush IV PUSH PRN PRN after blood draws Thiamine HCl 100 mg 05/29/24 09:00 05/29/24 09:30 Thiamine Hcl 100 Mg Tablet PO 100 mg QAM NIDIA Administration Vitamin B Complex 1 cap 05/29/24 09:00 05/29/24 09:30 Vitamin B Complex Capsule PO 1 cap DAILY NIDIA Administration Vitamin D 1,000 units 05/28/24 21:00 05/28/24 22:01 Cholecalciferol 1,000 Units Tablet PO 1,000 units HS NIDIA Administration Radiology Results: ITS Impressions Head CT 05/28/24 09:57 IMPRESSION: Cerebral atherosclerosis and chronic small vessel ischemic changes of the cerebral white matter No skull fracture or acute intracranial finding Head/Cervical Spine/Facial Bones CT 05/28/24 10:03 IMPRESSION: No facial fracture Cervical spondylosis; no fracture or dislocation or locked facet of the cervical spine Chest CTA 05/28/24 10:10 IMPRESSION: No evidence of pulmonary embolism Prominent coronary artery atherosclerosis Small sliding hiatal hernia Esophagitis is suspected Cholelithiasis Elbow X-Ray 05/28/24 10:45 IMPRESSION: Limited examination due to apparent extravasated radiopaque contrast material No obvious fracture, dislocation or joint effusion Hand X-Ray 05/28/24 10:51 IMPRESSION: No recent fracture or dislocation is evident Polyarticular osteoarthritis Osteopenia Mild scapholunate dissociation Mild carpal chondrocalcinosis Foot X-Ray 05/28/24 11:02 IMPRESSION: Osteopenia Mild plantar calcaneal enthesopathy No recent fracture or dislocation Knee X-Ray 05/28/24 11:06 IMPRESSION: Osteopenia Osteoarthritis involving primarily the lateral compartment Chondrocalcinosis No fracture or dislocation or joint effusion Abdomen/Pelvis CT 05/28/24 12:40 IMPRESSION: Status post sternotomy Minimal infiltrate or atelectasis in the dependent right lower lobe Small sliding hiatal hernia Cholelithiasis Occasional bilateral renal cysts Prominent amount of fecal material in the rectum and sigmoid colon; no bowel obstruction or free air Diverticulosis of left and right colon; no evidence of diverticulitis Normal appendix Chest X-Ray 05/29/24 13:52 IMPRESSION: 1. PICC tip at the superior cavoatrial junction. Labs Labs: Laboratory Results - last 24 hr 05/28/24 05/28/24 05/29/24 20:52 22:37 01:13 WBC RBC Hgb Hct MCV MCH MCHC RDW Plt Count MPV VBG pH VBG pCO2 VBG pO2 VBG HCO3 O2 Delivery Device O2 Liters/Min FiO2 Sodium 128 L 126 L Potassium 4.3 4.9 Chloride 105 106 Carbon Dioxide 16 L 17 L Anion Gap 7 3 L BUN 33 H 30 H Creatinine 0.80 0.80 Estim Creat Clear Calc 72 72 Estimated GFR > 60 > 60 Glucose 54 L* 96 POC Capillary Glucose 133 H Calcium 6.8 L 7.6 L Magnesium 1.6 1.8 Total Bilirubin 1.4 H AST 59 ALT 34 Alkaline Phosphatase 53 Total Creatine Kinase 690 H 674 H Troponin I 0.040 H* Total Protein 5.0 L Albumin 2.6 L TSH (Reflex) 0.763 1.220 Ur Random Sodium Ur Random Urea Urine Creatinine 05/29/24 05/29/24 05/29/24 05:24 05:27 06:53 WBC 16.8 H RBC 3.21 L Hgb 10.9 L Hct 34.4 L MCV 107.2 H D MCH 34.0 MCHC 31.7 L RDW 13.7 Plt Count 112 L MPV 11.7 H VBG pH 7.541 H* VBG pCO2 17.4 L* VBG pO2 149.5 H VBG HCO3 14.6 L O2 Delivery Device Room air O2 Liters/Min Not Reportable FiO2 21 Sodium 128 L Potassium 4.6 Chloride 106 Carbon Dioxide 17 L Anion Gap 5 BUN 28 H Creatinine 0.80 Estim Creat Clear Calc 72 Estimated GFR > 60 Glucose 89 POC Capillary Glucose Calcium 7.4 L Magnesium 1.8 Total Bilirubin 1.4 H AST 60 H ALT 37 Alkaline Phosphatase 57 Total Creatine Kinase 540 H Troponin I Total Protein 5.0 L Albumin 2.7 L TSH (Reflex) Ur Random Sodium 155 Ur Random Urea 490 Urine Creatinine 40.2 05/29/24 05/29/24 05/29/24 12:03 14:15 15:52 WBC RBC Hgb Hct MCV MCH MCHC RDW Plt Count MPV VBG pH VBG pCO2 VBG pO2 VBG HCO3 O2 Delivery Device O2 Liters/Min FiO2 Sodium 129 L Potassium 4.0 Chloride 105 Carbon Dioxide 22 Anion Gap 2 L BUN 27 H Creatinine 0.90 Estim Creat Clear Calc 65 Estimated GFR > 60 Glucose 107 POC Capillary Glucose 145 H 113 H Calcium 7.8 L Magnesium Total Bilirubin AST ALT Alkaline Phosphatase Total Creatine Kinase Troponin I Total Protein Albumin TSH (Reflex) Ur Random Sodium Ur Random Urea Urine Creatinine Quality VTE Prophylaxis VTE prophylaxis: mechanical ordered
[2024-05-29] MEDS: SODIUM CHLORIDE 0.9% IV 1,000 ML 125 ML IV CONT (17:50)
[2024-05-29] MEDS: CHOLECALCIFEROL 1,000 UNITS TABLET 1000 UNITS PO (21:44)
[2024-05-29] MEDS: allopurinoL 300 MG TABLET PO (21:44)
[2024-05-29] MEDS: ATORVASTATIN 40 MG TABLET PO (21:44)
[2024-05-29] MEDS: amLODIPine BESYLATE 5 MG TABLET PO (21:44)
[2024-05-30] VITALS (16 sets, daily range): BP systolic 118–152; BP diastolic 66–85; PULSE 74–126; RESP 16–18; TEMP 36.4–37.2; O2SAT 96–100
[2024-05-30] MEDS: HYDROmorphone HCL INJ (*CRX) 1 MG/ML SYR 0.5 MG IV PUSH ×4 (04:58→21:39)
[2024-05-30] MEDS: SODIUM CHLORIDE 0.9% IV 1,000 ML 125 ML IV CONT (05:00)
[2024-05-30] MEDS: CENTRAL LINE FLUSH 10 ML IV PUSH ×3 (05:01→21:25)
[2024-05-30 06:23] LABS: Basophils Percent Auto 0.2 % (0.2-1.2); Hematocrit 27.9 % (42.0-52.0); Hemoglobin 9.7 g/dL (14.0-18.0); Immature Granulocyte Percent A 1.6 % (0-0.5); Immature Platelet Fraction Pct 6.1 % (0.9-11.2); Lymphocytes Absolute Auto 1.65 K/mm3 (0.9-3.2); Lymphocytes Percent Auto 13.2 % (18.3-44.2); Mean Corpuscular HGB Conc 34.8 g/dl (32-36); Mean Corpuscular Hemoglobin 35.4 pg (26-34); Mean Corpuscular Volume 101.8 fl (80-100); Monocytes Absolute Auto 1.7 K/mm3 (0.1-0.6); Monocytes Percent Auto 13.4 % (2.6-8.5); Neutrophils Absolute Auto 8.9 K/mm3 (1.3-6.7); Neutrophils Percent Auto 71.6 % (45.5-73.1); Platelet Count Result 90 k/mm3 (150-375); Red Blood Count 2.74 M/mm3 (4.6-6.20); Red Cell Distribution Width 13.9 % (11.5-14.5); White Blood Count 12.5 K/mm3 (4.5-10.0)
[2024-05-30 06:34] LABS: Alanine Aminotransferase 39 U/L (6-50); Albumin Level 2.6 g/dL (3.5-5.1); Alkaline Phosphatase 55 U/L (38-126); Anion Gap 4 mmol/L (4-12); Aspartate Amino Transferase 42 U/L (17-59); Blood Urea Nitrogen 20 mg/dL (9-20); Calcium 7.6 mg/dL (8.4-10.2); Carbon Dioxide 20 mmol/L (22-30); Chloride 108 mmol/L (98-107); Creatine Kinase 111 U/L (55-170); Estimated CRCL calculation 72 ml/min; Estimated Glomerular Filt Rate > 60; Glucose 91 mg/dL (65-110); Magnesium 1.8 mg/dL (1.6-2.3); Potassium 3.7 mmol/L (3.4-5.0); Sodium 132 mmol/L (137-145)
[2024-05-30] MEDS: SALMETEROL XINAFOATE 50 MCG DISKUS 1 PUFF INHALATION ×2 (08:31→20:41)
[2024-05-30] MEDS: ISONIAZID 100 MG TABLET 300 MG PO (09:44)
[2024-05-30] MEDS: DORZOLAMIDE/TIMOLOL OPHTH SOL 10 ML BOTTLE 1 DROP EACH EYE ×2 (09:45→16:51)
[2024-05-30] MEDS: PYRIDOXINE HCL 50 MG TABLET PO (09:45)
[2024-05-30] MEDS: THERAPEUTIC MULTIVITAMINS/MINERALS TAB (*BKC) 1 TABLET PO (09:45)
[2024-05-30] MEDS: ASPIRIN 81 MG CHEWABLE TABLET PO (09:45)
[2024-05-30] MEDS: THIAMINE HCL 100 MG TABLET PO (09:45)
[2024-05-30] MEDS: FOLIC ACID 1 MG TABLET PO (09:45)
[2024-05-30] MEDS: VITAMIN B COMPLEX CAPSULE 1 CAP PO (09:45)
[2024-05-30] MEDS: ENOXAPARIN 40 MG/0.4 ML SYRINGE SUB-Q (09:45)
[2024-05-30] MEDS: HYDROcodone/acetaminophen (*CRX) 5-325 MG TABLET 1 TAB PO (09:45)
--- NOTE | 2024-05-30 15:21 | P.PNIM_ITS ---
Progress Note: A&P Assessment and Plan (1) Hypothermia: Code(s): T68.XXXA - Hypothermia, initial encounter Status: Acute (2) Lactic acidosis: Code(s): E87.20 - Acidosis, unspecified Status: Acute (3) Encephalopathy: Code(s): G93.40 - Encephalopathy, unspecified Status: Resolved (4) Fall from ground level: Code(s): W18.30XA - Fall on same level, unspecified, initial encounter Status: Acute (5) Macrocytic anemia: Code(s): D53.9 - Nutritional anemia, unspecified Status: Acute (6) Daily consumption of alcohol: Code(s): Z78.9 - Other specified health status Status: Acute (7) Chronic prescription opiate use: Code(s): Z79.891 - residential (current) use of opiate analgesic Status: Acute (8) Coronary artery disease: Code(s): I25.10 - Atherosclerotic heart disease of [place] coronary artery without angina pectoris Status: Acute (9) Chronic obstructive pulmonary disease: Code(s): J44.9 - Chronic obstructive pulmonary disease, unspecified Status: Acute (10) Hypertension: Code(s): I10 - Essential (primary) hypertension Status: Acute (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 CT scans of the chest, abdomen, and pelvis showed prominent amount of fecal material in the colon no fractures patient denies any syncope patient noted he was [facility] requested ECHO ordered, since record transfer is slow/unavailable PT/OT lactic acidosis, from hypothermia resolved continue IVF Constipation CT AP showed constipation continue Miralax Elevated CK Ck 674, repeat 111 s/p IVF monitor Macrocytic anemia Hb 10.9, MCV 107.2 Likely from alcohol abuse B12 and folate within normal multiple wound on knees and feet Wound care following Alcohol intoxication patient counseled about alcohol cessation continue CIWA protocol, thiamine and Folic acid Latent TB Continue Isoniazid and Pyridoxine COPD continue home bronchodilators HTN titrate home meds with clinical course hx of Opioids prescription abuse counseled, monitor DVT prophylaxis on Sq Lovenox Awaiting ECHO result for further eval Subjective Date/time seen: 05/30/24 15:21 Interval history: Comfortable at bedside Record transfer [facility] not available yet, hence i have gone ahead and ordered ECHO. Exam Narrative: General: Ill-appearing gentleman the semi-Bean position in bed. Weight: 90.1 kg. BMI: 26.2. HEENT: Multiple bruises and abrasions to the face. Pupils are reactive and extraocular motions are intact. Sclera anicteric. Conjunctiva mildly injected. Right eyelid is more swollen compared to the left. Small abrasion over the bridge of the nose. Lips are swollen. Tacky mucous membranes. Neck: Supple. No midline vertebral tenderness. Respiratory: Respirations are nonlabored and he is speaking in full sentences. Lung sounds clear to auscultation. Cardiovascular: Tachycardic with normal S1-S2. Well-healed sternotomy. Gastrointestinal: Abdomen is soft, nontender, and nondistended with positive bowel sounds. Skin: He is warm at the time my evaluation, currently under a Gene Hugger. Normal capillary refill. Nearly head to toe abrasions and skin tears including on the face and extremities as well as the pads of the fingers and toes. Extremities: No cyanosis or clubbing. Mild edema of all the extremities. Peripheral pulses intact. Neurological: Alert and oriented x4 at the time my evaluation. Cranial nerves 2-12 are grossly intact. Speech is clear. No pronator drift. No facial asymmetry. No gross focal deficits to casual conversation. Psychiatric: Pleasant and cooperative with appropriate mood and affect. Objective Data Vital Signs Vital Signs: Vital Signs - 24 hr 05/29/24 16:00 05/29/24 16:00 05/29/24 16:00 Temperature 97.6 F Pulse Rate 108 H 97 Pulse Rate [Bilateral Pedal (Dorsalis Pedis) Palpation] Respiratory Rate 24 H Blood Pressure 144/71 H Pulse Oximetry 98 Oxygen Delivery Room Air Fraction of Inspired Oxygen 05/29/24 18:00 05/29/24 20:08 05/29/24 21:01 Temperature 98.1 F Pulse Rate 108 H 103 H 86 Pulse Rate [Bilateral Pedal (Dorsalis Pedis) Palpation] Respiratory Rate 22 H Blood Pressure 123/66 Pulse Oximetry 99 98 Oxygen Delivery Room Air Fraction of Inspired Oxygen 05/29/24 20:00 05/29/24 22:00 05/29/24 20:00 Temperature Pulse Rate 88 87 Pulse Rate [Bilateral Pedal (Dorsalis Pedis) Palpation] 101 H Respiratory Rate Blood Pressure 123/66 Pulse Oximetry Oxygen Delivery Fraction of Inspired Oxygen 05/30/24 00:00 05/29/24 20:00 05/30/24 00:00 Temperature 98.9 F Pulse Rate 79 Pulse Rate [Bilateral Pedal (Dorsalis Pedis) Palpation] Respiratory Rate 18 Blood Pressure 118/80 Pulse Oximetry 98 Oxygen Delivery Room Air Room Air Fraction of Inspired Oxygen 05/30/24 00:00 05/30/24 02:00 05/30/24 04:00 Temperature Pulse Rate 78 100 Pulse Rate [Bilateral Pedal (Dorsalis Pedis) Palpation] 93 Respiratory Rate Blood Pressure Pulse Oximetry Oxygen Delivery Fraction of Inspired Oxygen 05/30/24 04:00 05/30/24 04:00 05/30/24 04:00 Temperature 98.0 F Pulse Rate 112 H 93 Pulse Rate [Bilateral Pedal (Dorsalis Pedis) Palpation] Respiratory Rate 16 Blood Pressure 122/68 Pulse Oximetry 97 Oxygen Delivery Room Air Fraction of Inspired Oxygen 05/30/24 06:00 05/30/24 08:34 05/30/24 08:34 Temperature Pulse Rate 87 89 Pulse Rate [Bilateral Pedal (Dorsalis Pedis) Palpation] Respiratory Rate 18 Blood Pressure Pulse Oximetry 96 Oxygen Delivery Room Air Fraction of Inspired Oxygen 05/30/24 12:00 Temperature 97.6 F Pulse Rate 110 H Pulse Rate [Bilateral Pedal (Dorsalis Pedis) Palpation] Respiratory Rate 18 Blood Pressure 132/85 Pulse Oximetry 99 Oxygen Delivery Fraction of Inspired Oxygen Intake/Output Intake/Output: Intake & Output 05/27/24 05/28/24 05/29/24 05/30/24 23:59 23:59 23:59 23:59 Intake Total 3300 911.7 1480 Output Total 1350 1425 Balance 3300 -438.3 55 Meds/Results Medications: Active Medications Generic Name Dose Route Start Last Admin Trade Name Freq PRN Reason Stop Dose Admin Hydrocodone Bitart/Acetaminophen 1 tab 05/28/24 17:57 05/30/24 09:45 Hydrocodone/Acetaminophen (*Crx) 5-325 Mg Tablet PO 1 tab Q6H PRN Administration Pain Rated 4-6 Albuterol 2 puff 05/28/24 20:08 Albuterol Sulfate (*Sp) Aerosol 1 Puff INHALATION QIDRT PRN Shortness Of Breath Allopurinol 300 mg 05/28/24 21:00 05/29/24 21:44 Allopurinol 300 Mg Tablet PO 300 mg HS NIDIA Administration Amlodipine Besylate 5 mg 05/29/24 21:00 05/29/24 21:44 Amlodipine Besylate 5 Mg Tablet PO 5 mg HS NIDIA Administration Aspirin 81 mg 05/29/24 09:00 05/30/24 09:45 Aspirin 81 Mg Chewable Tablet PO 81 mg DAILY NIDIA Administration Atorvastatin Calcium 40 mg 05/28/24 21:00 05/29/24 21:44 Atorvastatin 40 Mg Tablet PO 40 mg HS NIDIA Administration Chlordiazepoxide HCl 25 mg 05/28/24 21:56 05/29/24 09:41 Chlordiazepoxide (*Crx) 25 Mg Capsule PO 25 mg Q8H PRN Administration withdrawal symptoms & CIWA < 8 Dorzolamide/Timolol 1 drop 05/28/24 20:30 05/30/24 09:45 Dorzolamide/Timolol Ophth Alicia 10 Ml Bottle EACH EYE 1 drop BID NIDIA Administration Enoxaparin Sodium 40 mg 05/30/24 09:00 05/30/24 09:45 Enoxaparin 40 Mg/0.4 Ml Syringe SUB-Q 40 mg DAILY NIDIA Administration Folic Acid 1 mg 05/29/24 09:00 05/30/24 09:45 Folic Acid 1 Mg Tablet PO 1 mg DAILY NIDIA Administration Hydromorphone HCl 0.5 mg 05/28/24 20:05 05/30/24 10:11 Hydromorphone Hcl Inj (*Crx) 1 Mg/Ml Syr IV PUSH 0.5 mg Q3H PRN Administration Pain Rated 7-10 Isoniazid 300 mg 05/29/24 09:00 05/30/24 09:44 Isoniazid 100 Mg Tablet PO 300 mg DAILY NIDIA Administration Lorazepam 1 mg 05/28/24 21:56 Lorazepam Inj (*Crx) 2 Mg/Ml Vial IV PUSH Q2H PRN CIWA 8-15 Lorazepam 2 mg 05/28/24 21:56 Lorazepam Inj (*Crx) 2 Mg/Ml Vial IV PUSH Q2H PRN CIWA > 15 Multivitamins/Calcium 1 tablet 05/29/24 09:00 12/02/24 09:45 Therapeutic Multivitamins/Minerals Tab (*Bkc) PO 1 tablet QAM NIDIA Administration Polyethylene Glycol 17 gm 05/29/24 09:00 05/30/24 09:58 Polyethylene Glycol 3350 17 Gm Powd.Pack PO Not Given QAM NIDIA Pyridoxine HCl 50 mg 05/29/24 09:00 05/30/24 09:45 Pyridoxine Hcl 50 Mg Tablet PO 50 mg DAILY NIDIA Administration Salmeterol Xinafoate 1 puff 05/28/24 20:30 05/30/24 08:31 Salmeterol Xinafoate 50 Mcg Diskus INHALATION 1 puff Q12HRT NIDIA Administration Sodium Chloride 10 ml 05/29/24 14:00 05/30/24 05:01 Central Line Flush IV PUSH 10 ml Q8HR NIDIA Administration Sodium Chloride 10 ml 05/29/24 14:00 Central Line Flush IV PUSH PRN PRN with TPN bag changes Sodium Chloride 20 ml 05/29/24 14:00 Central Line Flush IV PUSH PRN PRN after blood draws Thiamine HCl 100 mg 05/29/24 09:00 05/30/24 09:45 Thiamine Hcl 100 Mg Tablet PO 100 mg QAM NIDIA Administration Vitamin B Complex 1 cap 05/29/24 09:00 05/30/24 09:45 Vitamin B Complex Capsule PO 1 cap DAILY NIDIA Administration Vitamin D 1,000 units 05/28/24 21:00 05/29/24 21:44 Cholecalciferol 1,000 Units Tablet PO 1,000 units HS NIDIA Administration Radiology Results: ITS Impressions Head CT 05/28/24 09:57 IMPRESSION: Cerebral atherosclerosis and chronic small vessel ischemic changes of the cerebral white matter No skull fracture or acute intracranial finding Head/Cervical Spine/Facial Bones CT 05/28/24 10:03 IMPRESSION: No facial fracture Cervical spondylosis; no fracture or dislocation or locked facet of the cervical spine Chest CTA 05/28/24 10:10 IMPRESSION: No evidence of pulmonary embolism Prominent coronary artery atherosclerosis Small sliding hiatal hernia Esophagitis is suspected Cholelithiasis Elbow X-Ray 05/28/24 10:45 IMPRESSION: Limited examination due to apparent extravasated radiopaque contrast material No obvious fracture, dislocation or joint effusion Hand X-Ray 05/28/24 10:51 IMPRESSION: No recent fracture or dislocation is evident Polyarticular osteoarthritis Osteopenia Mild scapholunate dissociation Mild carpal chondrocalcinosis Foot X-Ray 05/28/24 11:02 IMPRESSION: Osteopenia Mild plantar calcaneal enthesopathy No recent fracture or dislocation Knee X-Ray 05/28/24 11:06 IMPRESSION: Osteopenia Osteoarthritis involving primarily the lateral compartment Chondrocalcinosis No fracture or dislocation or joint effusion Abdomen/Pelvis CT 05/28/24 12:40 IMPRESSION: Status post sternotomy Minimal infiltrate or atelectasis in the dependent right lower lobe Small sliding hiatal hernia Cholelithiasis Occasional bilateral renal cysts Prominent amount of fecal material in the rectum and sigmoid colon; no bowel obstruction or free air Diverticulosis of left and right colon; no evidence of diverticulitis Normal appendix Chest X-Ray 05/30/24 11:00 IMPRESSION: 1. Mild atelectasis in right lower lung zone. Labs Labs: Laboratory Results - last 24 hr 05/29/24 05/30/24 15:52 06:15 WBC 12.5 H RBC 2.74 L Hgb 9.7 L Hct 27.9 L MCV 101.8 H D MCH 35.4 H MCHC 34.8 RDW 13.9 Plt Count 90 L MPV 12.0 H Immature Gran % (Auto) 1.6 H Neut % (Auto) 71.6 Lymph % (Auto) 13.2 L [place] % (Auto) 13.4 H Eos % (Auto) 0.0 Baso % (Auto) 0.2 Lymph # (Auto) 1.65 [place] # (Auto) 1.7 H Eos # (Auto) 0.0 Baso # (Auto) 0.0 Abs Immat Gran (auto) 0.20 H Absolute Neuts (auto) 8.9 H Absolute Nucleated RBC 0.000 Nucleated RBC % 0.0 % Immature Plt Fraction 6.1 Sodium 132 L Potassium 3.7 Chloride 108 H Carbon Dioxide 20 L Anion Gap 4 BUN 20 Creatinine 0.80 Estim Creat Clear Calc 72 Estimated GFR > 60 Glucose 91 POC Capillary Glucose 113 H Calcium 7.6 L Magnesium 1.8 Total Bilirubin 1.0 AST 42 ALT 39 Alkaline Phosphatase 55 Total Creatine Kinase 111 Total Protein 5.0 L Albumin 2.6 L Quality VTE Prophylaxis VTE prophylaxis: mechanical ordered
--- NOTE | 2024-05-30 16:17 | PCCARD ---
Attempt was made to do echo exam, however, patient states he had an [facility]. Talk to and was told, He.d been trying for four days to get a report from the [facility]. Echo lab will try again tomorrow 05/31/24 to do echo exam.
[2024-05-30 16:35] LABS: Glucose Point of Care 124 mg/dl (65-105)
[2024-05-30] MEDS: levoFLOXacin 750 MG/D5W 150 ML 750 MG/150 ML BAG 100 MG IVPB (17:00)
[2024-05-30] MEDS: metroNIDAZOLE 500 MG/ISO 100ML 500 MG/100 ML BAG 100 MG IVPB (17:01)
[2024-05-30 18:29] LABS: MRSA (PCR) NOT DETECTED (NOT DETECTE)
[2024-05-30] MEDS: CHOLECALCIFEROL 1,000 UNITS TABLET 1000 UNITS PO (21:24)
[2024-05-30] MEDS: ATORVASTATIN 40 MG TABLET PO (21:24)
[2024-05-30] MEDS: allopurinoL 300 MG TABLET PO (21:24)
[2024-05-30] MEDS: amLODIPine BESYLATE 5 MG TABLET PO (21:25)
[2024-05-31] VITALS (11 sets, daily range): BP systolic 101–153; BP diastolic 57–91; PULSE 74–116; RESP 16–24; TEMP 36.4–36.9; O2SAT 96–99
[2024-05-31] MEDS: metroNIDAZOLE 500 MG/ISO 100ML 500 MG/100 ML BAG 100 MG IVPB ×2 (00:57→09:08)
[2024-05-31] MEDS: HYDROmorphone HCL INJ (*CRX) 1 MG/ML SYR 0.5 MG IV PUSH ×4 (06:32→21:25)
[2024-05-31] MEDS: CENTRAL LINE FLUSH 10 ML IV PUSH ×2 (06:33→15:02)
[2024-05-31] MEDS: SALMETEROL XINAFOATE 50 MCG DISKUS 1 PUFF INHALATION ×2 (07:48→22:29)
[2024-05-31 08:11] LABS: Basophils Percent Auto 0.4 % (0.2-1.2); Eosinophils Percent Auto 0.1 % (0-4.4); Hematocrit 28.6 % (42.0-52.0); Hemoglobin 9.8 g/dL (14.0-18.0); Immature Granulocyte Absolute 0.35 K/mm3 (0.00-0.031); Immature Granulocyte Percent A 3.2 % (0-0.5); Lymphocytes Absolute Auto 1.55 K/mm3 (0.9-3.2); Lymphocytes Percent Auto 14.3 % (18.3-44.2); Mean Corpuscular HGB Conc 34.3 g/dl (32-36); Mean Corpuscular Hemoglobin 34.9 pg (26-34); Mean Corpuscular Volume 101.8 fl (80-100); Neutrophils Absolute Auto 7.9 K/mm3 (1.3-6.7); Platelet Count Result 106 k/mm3 (150-375); Red Blood Count 2.81 M/mm3 (4.6-6.20); Red Cell Distribution Width 13.7 % (11.5-14.5); White Blood Count 10.9 K/mm3 (4.5-10.0)
[2024-05-31 08:21] LABS: Alanine Aminotransferase 39 U/L (6-50); Albumin Level 2.9 g/dL (3.5-5.1); Alkaline Phosphatase 58 U/L (38-126); Anion Gap 0 mmol/L (4-12); Aspartate Amino Transferase 34 U/L (17-59); Bilirubin,Total 0.9 mg/dL (0.2-1.3); Blood Urea Nitrogen 20 mg/dL (9-20); Calcium 7.9 mg/dL (8.4-10.2); Carbon Dioxide 26 mmol/L (22-30); Chloride 107 mmol/L (98-107); Estimated CRCL calculation 72 ml/min; Estimated Glomerular Filt Rate > 60; Glucose 109 mg/dL (65-110); Magnesium 1.8 mg/dL (1.6-2.3); Potassium 3.9 mmol/L (3.4-5.0); Sodium 133 mmol/L (137-145)
[2024-05-31 08:22] LABS: Lactic Acid Reflex 0.8 mmol/L (0.7-2.0)
[2024-05-31] MEDS: ASPIRIN 81 MG CHEWABLE TABLET PO (09:05)
[2024-05-31] MEDS: ISONIAZID 100 MG TABLET 300 MG PO (09:05)
[2024-05-31] MEDS: VITAMIN B COMPLEX CAPSULE 1 CAP PO (09:06)
[2024-05-31] MEDS: FOLIC ACID 1 MG TABLET PO (09:06)
[2024-05-31] MEDS: PYRIDOXINE HCL 50 MG TABLET PO (09:06)
[2024-05-31] MEDS: THIAMINE HCL 100 MG TABLET PO (09:06)
[2024-05-31] MEDS: HYDROcodone/acetaminophen (*CRX) 5-325 MG TABLET 1 TAB PO ×2 (09:06→18:44)
[2024-05-31] MEDS: THERAPEUTIC MULTIVITAMINS/MINERALS TAB (*BKC) 1 TABLET PO (09:06)
[2024-05-31] MEDS: DORZOLAMIDE/TIMOLOL OPHTH SOL 10 ML BOTTLE 1 DROP EACH EYE ×2 (09:08→16:40)
[2024-05-31] MEDS: ENOXAPARIN 40 MG/0.4 ML SYRINGE SUB-Q (09:09)
--- NOTE | 2024-05-31 11:41 | ECG_ITS ---
Test Date: 2024-05-31 12:15:21 Measurements Intervals [place] Rate: 86 P: 94 TN: 181 QRS: 49 QRSD: 101 T: 63 QT: 365 QTc: 439 Interpretive Statements SINUS RHYTHM WITH OCCASIONAL VENTRICULAR PREMATURE COMPLEXES Compared to ECG 05/28/2024 08:41:56 Ventricular premature complex(es) now present Electronically Signed On 05-31-2024 15:30:07 [employer]AT WRAPPER by Pola Garsia M.D.
--- NOTE | 2024-05-31 15:20 | PC.NURSE ---
This patient, Chin Baldwin, was received from [ [id number]] on 05/31/24 at 1520. Patient/family oriented to unit policies and routines. Report from [facility]
--- NOTE | 2024-05-31 17:02 | PC.NURSE ---
This patient, Chin Baldwin, was transferred to [facility] on 05/31/24 at 1520. Personal belongings sent with patient. Report given to BASHIR Fraga. Appropriate documentation sent with patient.
--- NOTE | 2024-05-31 17:13 | P.PNIM_ITS ---
Progress Note: A&P Assessment and Plan (1) Hypothermia: Code(s): T68.XXXA - Hypothermia, initial encounter Status: Acute (2) Lactic acidosis: Code(s): E87.20 - Acidosis, unspecified Status: Acute (3) Encephalopathy: Code(s): G93.40 - Encephalopathy, unspecified Status: Resolved (4) Fall from ground level: Code(s): W18.30XA - Fall on same level, unspecified, initial encounter Status: Acute (5) Macrocytic anemia: Code(s): D53.9 - Nutritional anemia, unspecified Status: Acute (6) Daily consumption of alcohol: Code(s): Z78.9 - Other specified health status Status: Acute (7) Chronic prescription opiate use: Code(s): Z79.891 - assisted (current) use of opiate analgesic Status: Acute (8) Coronary artery disease: Code(s): I25.10 - Atherosclerotic heart disease of [place] coronary artery without angina pectoris Status: Acute (9) Chronic obstructive pulmonary disease: Code(s): J44.9 - Chronic obstructive pulmonary disease, unspecified Status: Acute (10) Hypertension: Code(s): I10 - Essential (primary) hypertension Status: Acute (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 CT scans of the chest, abdomen, and pelvis showed prominent amount of fecal material in the colon no fractures patient denies any syncope patient noted he was [facility] requested ECHO ordered, since record transfer is slow/unavailable PT/OT lactic acidosis, from hypothermia resolved continue IVF Constipation CT AP showed constipation continue Miralax Elevated CK Ck 674, repeat 111 s/p IVF monitor Macrocytic anemia Hb 10.9, MCV 107.2 Likely from alcohol abuse B12 and folate within normal multiple wound on knees and feet Wound care following Alcohol intoxication patient counseled about alcohol cessation continue CIWA protocol, thiamine and Folic acid Latent TB Continue Isoniazid and Pyridoxine COPD continue home bronchodilators HTN titrate home meds with clinical course hx of Opioids prescription abuse counseled, monitor DVT prophylaxis on Sq Lovenox Awaiting ECHO result for further eval Subjective Date/time seen: 05/31/24 17:13 Interval history: Pending echocardiogram. Patient and evidence of frostbite. Surgery is consulted. Will do orthostatic. His possible fall may be due to alcoholism. Review of Systems Review of Systems: Twelve systems were reviewed. His 22 months ago and he is understandably still depressed about that. He denies harmful thoughts and specifically denies suicidal ideation. He drinks 3 to 4 Budweisers a night, sometimes more if he is out with his friends at the [facility]. He has never had signs or symptoms of alcohol withdrawal and has no history of seizures. Except as documented, all other systems were reviewed and are negative. Exam Narrative: General: Ill-appearing gentleman the semi-Bean position in bed. Weight: 90.1 kg. BMI: 26.2. HEENT: Multiple bruises and abrasions to the face. Pupils are reactive and extraocular motions are intact. Sclera anicteric. Conjunctiva mildly injected. Right eyelid is more swollen compared to the left. Small abrasion over the bridge of the nose. Lips are swollen. Tacky mucous membranes. Neck: Supple. No midline vertebral tenderness. Respiratory: Respirations are nonlabored and he is speaking in full sentences. Lung sounds clear to auscultation. Cardiovascular: Tachycardic with normal S1-S2. Well-healed sternotomy. Gastrointestinal: Abdomen is soft, nontender, and nondistended with positive bowel sounds. Skin: He is warm at the time my evaluation, currently under a Gene Hugger. Normal capillary refill. Nearly head to toe abrasions and skin tears including on the face and extremities as well as the pads of the fingers and toes. Extremities: No cyanosis or clubbing. Mild edema of all the extremities. Peripheral pulses intact. Neurological: Alert and oriented x4 at the time my evaluation. Cranial nerves 2-12 are grossly intact. Speech is clear. No pronator drift. No facial asymmetry. No gross focal deficits to casual conversation. Psychiatric: Pleasant and cooperative with appropriate mood and affect. Objective Data Vital Signs Vital Signs: Vital Signs - 24 hr 05/30/24 17:33 05/30/24 20:41 05/30/24 20:41 Temperature Pulse Rate 125 H 99 99 Pulse Rate [Bilateral Pedal (Dorsalis Pedis) Palpation] Respiratory Rate 18 Blood Pressure Pulse Oximetry 98 Oxygen Delivery Room Air 05/30/24 20:53 05/30/24 20:00 05/30/24 23:57 Temperature 97.8 F 97.7 F Pulse Rate 94 80 Pulse Rate [Bilateral Pedal (Dorsalis Pedis) Palpation] 93 Respiratory Rate 18 18 Blood Pressure 129/72 129/72 122/66 Pulse Oximetry 99 Oxygen Delivery 05/30/24 20:00 05/31/24 00:00 05/30/24 20:00 Temperature Pulse Rate 98 Pulse Rate [Bilateral Pedal (Dorsalis Pedis) Palpation] Respiratory Rate Blood Pressure Pulse Oximetry Oxygen Delivery Room Air Room Air 05/30/24 22:00 05/31/24 00:00 05/31/24 02:00 Temperature Pulse Rate 74 85 85 Pulse Rate [Bilateral Pedal (Dorsalis Pedis) Palpation] Respiratory Rate Blood Pressure Pulse Oximetry Oxygen Delivery 05/31/24 04:08 05/31/24 04:00 05/31/24 04:00 Temperature 97.8 F Pulse Rate 95 90 Pulse Rate [Bilateral Pedal (Dorsalis Pedis) Palpation] Respiratory Rate 18 Blood Pressure 147/91 H Pulse Oximetry 97 Oxygen Delivery Room Air 05/31/24 06:00 05/31/24 07:49 05/31/24 08:00 Temperature 98.5 F Pulse Rate 74 116 H Pulse Rate [Bilateral Pedal (Dorsalis Pedis) Palpation] Respiratory Rate 16 Blood Pressure 143/71 H Pulse Oximetry 96 98 Oxygen Delivery Room Air 05/31/24 12:00 05/31/24 08:00 05/31/24 12:56 Temperature 97.9 F 97.9 F Pulse Rate 81 89 Pulse Rate [Bilateral Pedal (Dorsalis Pedis) Palpation] Respiratory Rate 24 H 20 Blood Pressure 143/72 H 125/71 120/66 Pulse Oximetry 98 99 Oxygen Delivery 05/31/24 12:56 05/31/24 16:00 05/31/24 08:00 Temperature Pulse Rate 90 Pulse Rate [Bilateral Pedal (Dorsalis Pedis) Palpation] Respiratory Rate Blood Pressure 101/57 L Pulse Oximetry Oxygen Delivery Room Air 05/31/24 16:00 05/31/24 12:00 Temperature 97.5 F L Pulse Rate 96 Pulse Rate [Bilateral Pedal (Dorsalis Pedis) Palpation] Respiratory Rate 16 Blood Pressure 147/88 H Pulse Oximetry 99 Oxygen Delivery Room Air Intake/Output Intake/Output: Intake & Output 05/28/24 05/29/24 05/30/24 05/31/24 23:59 23:59 23:59 23:59 Intake Total 3300 911.7 2080 460 Output Total 1350 2175 700 Balance 3300 -438.3 -95 -240 Meds/Results Medications: Active Medications Generic Name Dose Route Start Last Admin Trade Name Freq PRN Reason Stop Dose Admin Hydrocodone Bitart/Acetaminophen 1 tab 05/28/24 17:57 05/31/24 09:06 Hydrocodone/Acetaminophen (*Crx) 5-325 Mg Tablet PO 1 tab Q6H PRN Administration Pain Rated 4-6 Albuterol 2 puff 05/28/24 20:08 Albuterol Sulfate (*Sp) Aerosol 1 Puff INHALATION QIDRT PRN Shortness Of Breath Allopurinol 300 mg 05/28/24 21:00 05/30/24 21:24 Allopurinol 300 Mg Tablet PO 300 mg HS NIDIA Administration Amlodipine Besylate 5 mg 05/29/24 21:00 05/30/24 21:25 Amlodipine Besylate 5 Mg Tablet PO 5 mg HS NIDIA Administration Aspirin 81 mg 05/29/24 09:00 05/31/24 09:05 Aspirin 81 Mg Chewable Tablet PO 81 mg DAILY NIDIA Administration Atorvastatin Calcium 40 mg 05/28/24 21:00 05/30/24 21:24 Atorvastatin 40 Mg Tablet PO 40 mg HS NIDIA Administration Chlordiazepoxide HCl 25 mg 05/28/24 21:56 05/29/24 09:41 Chlordiazepoxide (*Crx) 25 Mg Capsule PO 25 mg Q8H PRN Administration withdrawal symptoms & CIWA < 8 Dorzolamide/Timolol 1 drop 05/28/24 20:30 05/31/24 16:40 Dorzolamide/Timolol Ophth Alicia 10 Ml Bottle EACH EYE 1 drop BID NIDIA Administration Enoxaparin Sodium 40 mg 05/30/24 09:00 05/31/24 09:09 Enoxaparin 40 Mg/0.4 Ml Syringe SUB-Q 40 mg DAILY NIDIA Administration Folic Acid 1 mg 05/29/24 09:00 05/31/24 09:06 Folic Acid 1 Mg Tablet PO 1 mg DAILY NIDIA Administration Hydromorphone HCl 0.5 mg 05/28/24 20:05 05/31/24 15:02 Hydromorphone Hcl Inj (*Crx) 1 Mg/Ml Syr IV PUSH 0.5 mg Q3H PRN Administration Pain Rated 7-10 Isoniazid 300 mg 05/29/24 09:00 05/31/24 09:05 Isoniazid 100 Mg Tablet PO 300 mg DAILY NIDIA Administration Lorazepam 1 mg 05/28/24 21:56 Lorazepam Inj (*Crx) 2 Mg/Ml Vial IV PUSH Q2H PRN CIWA 8-15 Lorazepam 2 mg 05/28/24 21:56 Lorazepam Inj (*Crx) 2 Mg/Ml Vial IV PUSH Q2H PRN CIWA > 15 Multivitamins/Calcium 1 tablet 05/29/24 09:00 05/31/24 09:06 Therapeutic Multivitamins/Minerals Tab (*Bkc) PO 1 tablet QAM NIDIA Administration Perflutren Lipid Microsphere 0 ml 05/30/24 15:21 Perflutren Lipid Microspheres 1.5 Ml Vial Diluted To 10 Ml Total Volume IV PUSH 06/02/24 15:21 ONCE PRN adequate visualization Protocol Polyethylene Glycol 17 gm 05/29/24 09:00 05/31/24 09:09 Polyethylene Glycol 3350 17 Gm Powd.Pack PO Not Given QAM NIDIA Pyridoxine HCl 50 mg 05/29/24 09:00 05/31/24 09:06 Pyridoxine Hcl 50 Mg Tablet PO 50 mg DAILY NIDIA Administration Salmeterol Xinafoate 1 puff 05/28/24 20:30 05/31/24 07:48 Salmeterol Xinafoate 50 Mcg Diskus INHALATION 1 puff Q12HRT NIDIA Administration Sodium Chloride 10 ml 05/29/24 14:00 05/31/24 15:02 Central Line Flush IV PUSH 10 ml Q8HR NIDIA Administration Sodium Chloride 10 ml 05/29/24 14:00 Central Line Flush IV PUSH PRN PRN with TPN bag changes Sodium Chloride 20 ml 05/29/24 14:00 Central Line Flush IV PUSH PRN PRN after blood draws Thiamine HCl 100 mg 05/29/24 09:00 05/31/24 09:06 Thiamine Hcl 100 Mg Tablet PO 100 mg QAM NIDIA Administration Vitamin B Complex 1 cap 05/29/24 09:00 05/31/24 09:06 Vitamin B Complex Capsule PO 1 cap DAILY NIDIA Administration Vitamin D 1,000 units 05/28/24 21:00 05/30/24 21:24 Cholecalciferol 1,000 Units Tablet PO 1,000 units HS NIDIA Administration Radiology Results: ITS Impressions Head CT 05/28/24 09:57 IMPRESSION: Cerebral atherosclerosis and chronic small vessel ischemic changes of the cerebral white matter No skull fracture or acute intracranial finding Head/Cervical Spine/Facial Bones CT 05/28/24 10:03 IMPRESSION: No facial fracture Cervical spondylosis; no fracture or dislocation or locked facet of the cervical spine Chest CTA 05/28/24 10:10 IMPRESSION: No evidence of pulmonary embolism Prominent coronary artery atherosclerosis Small sliding hiatal hernia Esophagitis is suspected Cholelithiasis Elbow X-Ray 05/28/24 10:45 IMPRESSION: Limited examination due to apparent extravasated radiopaque contrast material No obvious fracture, dislocation or joint effusion Hand X-Ray 05/28/24 10:51 IMPRESSION: No recent fracture or dislocation is evident Polyarticular osteoarthritis Osteopenia Mild scapholunate dissociation Mild carpal chondrocalcinosis Foot X-Ray 05/28/24 11:02 IMPRESSION: Osteopenia Mild plantar calcaneal enthesopathy No recent fracture or dislocation Knee X-Ray 05/28/24 11:06 IMPRESSION: Osteopenia Osteoarthritis involving primarily the lateral compartment Chondrocalcinosis No fracture or dislocation or joint effusion Abdomen/Pelvis CT 05/28/24 12:40 IMPRESSION: Status post sternotomy Minimal infiltrate or atelectasis in the dependent right lower lobe Small sliding hiatal hernia Cholelithiasis Occasional bilateral renal cysts Prominent amount of fecal material in the rectum and sigmoid colon; no bowel obstruction or free air Diverticulosis of left and right colon; no evidence of diverticulitis Normal appendix Chest X-Ray 05/30/24 11:00 IMPRESSION: 1. Mild atelectasis in right lower lung zone. Labs Labs: Laboratory Results - last 24 hr 05/28/24 05/30/24 05/31/24 08:41 17:07 07:56 WBC 10.9 H RBC 2.81 L Hgb 9.8 L Hct 28.6 L MCV 101.8 H MCH 34.9 H MCHC 34.3 RDW 13.7 Plt Count 106 L MPV 12.0 H Immature Gran % (Auto) 3.2 H Neut % (Auto) 73.0 Lymph % (Auto) 14.3 L [place] % (Auto) 9.0 H Eos % (Auto) 0.1 Baso % (Auto) 0.4 Lymph # (Auto) 1.55 [place] # (Auto) 1.0 H Eos # (Auto) 0.0 Baso # (Auto) 0.0 Abs Immat Gran (auto) 0.35 H Absolute Neuts (auto) 7.9 H Absolute Nucleated RBC 0.000 Nucleated RBC % 0.0 Sodium 133 L Potassium 3.9 Chloride 107 Carbon Dioxide 26 Anion Gap 0 L BUN 20 Creatinine 0.80 Estim Creat Clear Calc 72 Estimated GFR > 60 Glucose 109 Serum Osmolality 321 H Lactic Acid 0.8 Calcium 7.9 L Magnesium 1.8 Total Bilirubin 0.9 AST 34 ALT 39 Alkaline Phosphatase 58 Total Protein 5.0 L Albumin 2.9 L Nasal MRSA (PCR) Not detected Quality VTE Prophylaxis VTE prophylaxis: mechanical ordered Hospitalist MIPS Advance Care Plan I have confirmed that the patient's Advanced Care Plan is present, code status is documented, or surrogate decision maker is listed in patient medical record.: Yes Medication Reconciliation I have utilized all available resources to obtain, update and review the patients current medications (includes all prescriptions, OTC, herbals, cannabis, and nutritional supplements).: Yes
[2024-05-31] MEDS: CHOLECALCIFEROL 1,000 UNITS TABLET 1000 UNITS PO (21:24)
[2024-05-31] MEDS: ATORVASTATIN 40 MG TABLET PO (21:24)
[2024-05-31] MEDS: amLODIPine BESYLATE 5 MG TABLET PO (21:24)
[2024-05-31] MEDS: allopurinoL 300 MG TABLET PO (21:24)
[2024-06-01] VITALS: BP 122/69; PULSE 116; PULSE 81; RESP 18; TEMP 37; O2SAT 95
--- NOTE | 2024-06-01 | ECHO_ITS ---
Patient Info Name: Chin Baldwin Age: 79 years : 1945 Gender: Male Ht: 73 in Wt: 194 lbs BSA: 2.14 m2 HR: 93 bpm BP: 142 / 72 mmHg Heart Rhythm: Sinus Rhythm Technical Quality: Good Exam Date: 06/01/2024 9:55 AM Exam Location: Site To Provide List Patient Status: Inpatient Admit Date: 05/28/2024 Staff Ordering Physician: Veronique Tyler MD [place]: Vida Marvin RDCS Attending Provider: Veronique Tyler MD Exam Type: CA echo doppler color flow Study Info Indications - syncope Complete two-dimensional, color flow and Doppler transthoracic echocardiogram is performed. Summary 1. Complete two-dimensional, color flow and Doppler transthoracic echocardiogram is performed. 2. Left ventricular chamber dimension is normal. 3. Left ventricular systolic function is normal, estimated at 60-65%. 4. There is no increased left ventricular wall thickness. 5. Left ventricular septal wall motion is abnormal with septal motion related to bundle branch block. 6. The left ventricular diastolic function is grade I diastolic dysfunction. 7. There is mild to moderate mitral valve regurgitation. 8. There is mild pulmonic regurgitation. 9. Left atrial chamber dimension is mildly enlarged. Left Ventricle Left ventricular chamber dimension is normal. Left ventricular systolic function is normal, estimated at 60-65%. There is no increased left ventricular wall thickness. Left ventricular septal wall motion is abnormal with septal motion related to bundle branch block. The left ventricular diastolic function is grade I diastolic dysfunction. Right Ventricle Right ventricular chamber dimension is normal. Right ventricular systolic function is normal. Left Atria Left atrial chamber dimension is mildly enlarged. Right Atria Right atrial chamber dimension is normal. Atrial Septum Intact interatrial septum visualized by color flow imaging. Aortic Valve The aortic valve is trileaflet. There is mild aortic valve sclerosis. There is no aortic valve stenosis. There is trace aortic valve regurgitation. Pulmonic Valve The pulmonic valve is normal. There is no pulmonic valve stenosis. There is mild pulmonic regurgitation. Mitral Valve The mitral valve has normal leaflets. There is no mitral valve stenosis. There is mild to moderate mitral valve regurgitation. Tricuspid Valve The tricuspid valve leaflets are normal. There is no significant tricuspid valve stenosis. There is trace tricuspid valve regurgitation. Pericardium/Pleural The pericardium appears normal. There is no pericardial effusion. Inferior Vena Cava Normal inferior vena cava with >50% collapse upon inspiration consistent with normal right atrial pressure, 8 mmHg. Aorta The aortic root size at the sinus of Valsalva is normal. Left Ventricular Outflow Tract Name Value Normal LVOT 2D LVOT Diameter 2.5 cm LVOT Doppler LVOT Peak Gradient 4 mmHg Pulmonic Valve Name Value Normal PV Doppler PV Peak Gradient 4 mmHg Mitral Valve Name Value Normal MV Doppler MV Decel [place] 217 cm/s2 MV PHT 67 ms MV Area (PHT) 3.3 cm2 4.0-5.0 MV Diastolic Function MV E Peak Velocity 50 cm/s MV A Peak Velocity 70 cm/s MV E/A 0.7 MV Decel Time 233 ms MV Annular TDI MV E/e' (Septal) 6.8 <=8.0 MV E/e' (Lateral) 6.2 <=8.0 MV E/e' (Average) 6.5 Tricuspid Valve Name Value Normal Estimated PAP/RSVP RA Pressure 8 mmHg <=5 Aortic Valve Name Value Normal AV Doppler AV Peak Velocity 108 cm/s AV Peak Gradient 5 mmHg AV Area (Cont Eq Can) 4.3 cm2 AV Regurgitation 2D LVOT Area 5.0 cm2 Ventricles Name Value Normal LV Dimensions 2D/MM IVS Diastolic Thickness (2D) 0.9 cm 0.6-1.0 LVID Diastole (2D) 5.1 cm 4.2-5.8 LVIW Diastolic Thickness (2D) 0.9 cm 0.6-1.0 LVID Systole (2D) 4.2 cm 2.5-4.0 LVOT Diameter 2.5 cm LV Mass (2D Cubed) 167.75 g 88.00-224.00 LV Mass Index (2D Cubed) 78 g/m2 49-115 Relative Wall Thickness (2D) 0.37 LV Fractional Shortening/Ejection Fraction 2D/MM LV Fractional Shortening (2D) 21 % 25-43 LV EF (2D Teicholz) 42 % 52-72 LV Diastolic Volume (4C MOD) 151 ml LV EF (4C MOD) 40 % LV Diastolic Length (4C) 9.1 cm LV Systolic Length (4C) 7.6 cm LV Stroke Volume (4C MOD) 60 ml Atria Name Value Normal LA Dimensions LA Volume (4C A-L) 79 ml Report Signatures
[2024-06-01] MEDS: CENTRAL LINE FLUSH 10 ML IV PUSH ×3 (01:48→16:01)
[2024-06-01] MEDS: HYDROcodone/acetaminophen (*CRX) 5-325 MG TABLET 1 TAB PO ×3 (02:07→18:06)
[2024-06-01 04:00] VITALS: BP 142/72; PULSE 68; PULSE 93; RESP 20; TEMP 36.6; O2SAT 98
[2024-06-01 04:40] LABS: Hematocrit 26.7 % (42.0-52.0); Hemoglobin 8.8 g/dL (14.0-18.0); Immature Platelet Fraction Pct 5.5 % (0.9-11.2); Mean Corpuscular Volume 103.1 fl (80-100); Mean Platelet Volume 11.3 fl (7.4-10.4); Platelet Count Result 135 k/mm3 (150-375); Red Blood Count 2.59 M/mm3 (4.6-6.20); Red Cell Distribution Width 13.8 % (11.5-14.5); White Blood Count 9.7 K/mm3 (4.5-10.0)
[2024-06-01 05:05] LABS: Alanine Aminotransferase 36 U/L (6-50); Albumin Level 2.5 g/dL (3.5-5.1); Alkaline Phosphatase 52 U/L (38-126); Anion Gap 0 mmol/L (4-12); Aspartate Amino Transferase 27 U/L (17-59); Bilirubin,Total 0.7 mg/dL (0.2-1.3); Blood Urea Nitrogen 20 mg/dL (9-20); Calcium 7.7 mg/dL (8.4-10.2); Carbon Dioxide 26 mmol/L (22-30); Chloride 107 mmol/L (98-107); Estimated CRCL calculation 72 ml/min; Estimated Glomerular Filt Rate > 60; Glucose 96 mg/dL (65-110); Potassium 3.8 mmol/L (3.4-5.0); Sodium 133 mmol/L (137-145)
[2024-06-01 08:00] VITALS: BP 144/83; PULSE 71; PULSE 90; RESP 18; TEMP 36.4; O2SAT 98
[2024-06-01] MEDS: SALMETEROL XINAFOATE 50 MCG DISKUS 1 PUFF INHALATION (08:28)
[2024-06-01 08:29] VITALS: O2SAT 98
[2024-06-01] MEDS: ENOXAPARIN 40 MG/0.4 ML SYRINGE SUB-Q (09:02)
[2024-06-01] MEDS: THIAMINE HCL 100 MG TABLET PO (09:02)
[2024-06-01] MEDS: THERAPEUTIC MULTIVITAMINS/MINERALS TAB (*BKC) 1 TABLET PO (09:02)
[2024-06-01] MEDS: FOLIC ACID 1 MG TABLET PO (09:02)
[2024-06-01] MEDS: VITAMIN B COMPLEX CAPSULE 1 CAP PO (09:02)
[2024-06-01] MEDS: ISONIAZID 100 MG TABLET 300 MG PO (09:02)
[2024-06-01] MEDS: ASPIRIN 81 MG CHEWABLE TABLET PO (09:02)
[2024-06-01] MEDS: DORZOLAMIDE/TIMOLOL OPHTH SOL 10 ML BOTTLE 1 DROP EACH EYE (09:03)
[2024-06-01] MEDS: PYRIDOXINE HCL 50 MG TABLET PO (09:13)
--- NOTE | 2024-06-01 10:18 | PCOTNOTE ---
The patient treatment was not able to be completed patient is having a test done. Will plan to continue treatment per plan of care.
--- NOTE | 2024-06-01 11:06 | PM.CNGS ---
Assessment and Plan Assessment and plan (1) Frostbite: Code(s): T33.90XA - Superficial frostbite of unspecified sites, initial encounter Status: Acute Assessment and Plan: Multiple areas of frostbite from extended exposure to cold air last week. He has been rewarmed and his hypothermia has resolved. He now has multiple wounds on his bilateral hands, knees, feet/toes, ankles, and face. It has been over 72 hours since rewarming and no indication for any medical therapy. At this point, his wounds appear stable with no signs of active infection. We would recommend to continue local wound care with silver gel dressing changes and xeroform gauze over the toe and knee wounds. He has a friend who will be doing his dressing changes daily and she is coming to receive education on this today per nursing. He can follow-up with his P[facility] for [facility] and they can refer him to a surgeon at the [facility] if he is having any healing complications or develops an infection. There is no indication for surgical intervention at this time. Okay to discharge from a surgical standpoint. Thank you for allowing us to see the patient in consultation. (2) Fall from ground level: Code(s): W18.30XA - Fall on same level, unspecified, initial encounter Status: Acute (3) Daily consumption of alcohol: Code(s): Z78.9 - Other specified health status Status: Acute (4) Latent tuberculosis: Code(s): Z22.7 - Latent tuberculosis Status: Acute (5) Hypothermia: Code(s): T68.XXXA - Hypothermia, initial encounter Status: Acute (6) Chronic obstructive pulmonary disease: Code(s): J44.9 - Chronic obstructive pulmonary disease, unspecified Status: Acute (7) Coronary artery disease: Code(s): I25.10 - Atherosclerotic heart disease of [place] coronary artery without angina pectoris Status: Acute Plan I have discussed the patient's case and plan of care with Dr. Javed. Thank you for allowing us to see the patient in consultation and we will continue to follow along with you. History of Present Illness Consult details Consult date: 06/01/24 Reason for consult: other (Multiple wounds) Requesting physician: Blaise Clark MD Narrative: This is an 79-year-old man with PMH of hypertension, hyperlipidemia, CAD, COPD, latent tuberculosis, and daily alcohol use, who was brought into the ED 4 days ago after being found down outside by a neighbor. He reportedly had several drinks with friends and when he went home he felt dizzy and fell forward onto the ground outside of his home. 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 He denies loss of consciousness but did develop confusion and does not recall actually being found or being brought into the ED. His neighbor look outside his window in saw him ?flailing? on the ground and he was alert at that time. He was admitted for hypothermia with leukocytosis, lactic acidosis, rhabdomyolysis and MIRIAM. His hypothermia has since resolved and his leukocytosis has also resolved. He has had multiple wounds with wound care consult a few days ago. They have been applying Xeroform dressings to abrasions on his bilateral knees, bilateral ankles and toes, and bilateral arms. His mentation has improved and he is no longer confused. Elevated CK has resolved. He has developed some dark areas on his distal fingertips and multiple toes, which is the reason for surgical consultation today. His white blood cell count is now normalized. [facility]. he lives at home alone and is planning to discharge home with a family friend who would be helping him with wound care. The nurse that she is planning on educating the friend today on dressing changes. Review of Systems Review of Systems: All systems reviewed & are unremarkable except as noted in HPI and below PMFSH Past Medical History Medical History Chronic obstructive pulmonary disease Chronic pain syndrome Chronic prescription opiate use Coronary artery disease Daily consumption of alcohol Glaucoma Gout Hyperlipidemia Hypertension Kidney stones Latent tuberculosis Vitamin B12 deficiency Surgical History Surgical History History of cataract extraction History of coronary artery bypass graft x 3 (2003) History of coronary artery stent placement x2 History of detached retina repair History of hernia repair Family History Family History Other Family history non-contributory Social History Social History (Reviewed 06/01/24 @ 11:12 by STONEY Lal Social History: Surrogate medical decision maker: Jeannette Abdi, Des Milligan, Conor Baldwin (children). Code status: Full code. Smoking packs per day: 2 Smoking cigarettes per day: 40.0 Years smoked: 45 Smoking pack-years: 90.00 Smoking status: Former smoker Tobacco type: cigarettes Additional smoking assessment comments: 2003 Alcohol intake: current Drinks per week: 25 Alcohol use details: 3 to 4 beers a night Substance use: current Substance use type: marijuana Last use: 05/08/2024 Do You Feel Safe in your Home?: Yes Lack of Transportation: YES Lack of Food: Never True Current Housing: I Have Housing Concerned About Future Housing: No Difficulty Paying Gas/Electric Bills: No Difficulty Paying for Meds: No Currently Unemployed: No Education: Bachelor's Degree Difficulty w/ Childcare or Family Care: No Additional living arrangements comments: since 2022. He has 3 children. Lives alone in [place]. Additional occupation/education comments: Was in the [employer] for 3.5 years and served overseas in [place]. Spiritual care concerns: No Meds Home Medications and Allergies Home Medications Medication Instructions Recorded Confirmed Type albuterol 2 inh BYMOUTH QID PRN Shortness Of 05/28/24 05/28/24 History Breath Or Wheezing allopurinol 300 mg tablet 300 mg PO HS 05/28/24 05/28/24 History amlodipine 5 mg tablet 5 mg PO HS 05/28/24 05/28/24 History aspirin 81 mg tablet 81 mg PO DAILY 05/28/24 05/28/24 History atorvastatin 40 mg tablet 40 mg PO HS 05/28/24 05/28/24 History cholecalciferol (vitamin D3) 25 1,000 unit PO HS 05/28/24 05/28/24 History mcg (1,000 unit) tablet (Vitamin D3) dorzolamide 2 %-timolol 0.5 % (PF) 1 drp ophthalmic (eye) BID 05/28/24 05/28/24 History eye drops hydrochlorothiazide 25 mg tablet 25 mg PO DAILY 05/28/24 05/28/24 History hydrocodone 5 mg-acetaminophen 325 1 tablet PO Q6H PRN Pain 05/28/24 05/28/24 History mg tablet isoniazid 300 mg tablet 300 mg PO DAILY 05/28/24 05/28/24 History naloxone 0.4 mg/0.4 mL injection, 0.4 mg IM DAILY 05/28/24 05/28/24 History auto-injector olodaterol 2.5 mcg/actuation mist 2 puff inhalation DAILY 05/28/24 05/28/24 History for inhalation ([place]riverdi Respimat) pyridoxine (vitamin B6) 50 mg 50 mg PO DAILY 05/28/24 05/28/24 History tablet vitamin B complex 1 tablet PO DAILY 05/28/24 05/28/24 History Allergies Allergy/AdvReac Type Severity Reaction Status Date / Time Sulfa (Sulfonamide Allergy Unknown Verified 05/28/24 18:08 Antibiotics) Vital Signs Vital Signs - 24 hr 05/31/24 12:00 05/31/24 12:56 05/31/24 12:56 Temperature 97.9 F Pulse Rate 81 Respiratory Rate 24 H Blood Pressure 143/72 H 120/66 101/57 L Pulse Oximetry 98 Oxygen Delivery 05/31/24 16:00 05/31/24 16:00 05/31/24 12:00 Temperature 97.5 F L Pulse Rate 90 96 Respiratory Rate 16 Blood Pressure 147/88 H Pulse Oximetry 99 Oxygen Delivery Room Air 05/31/24 12:00 05/31/24 20:00 05/31/24 20:00 Temperature 97.6 F Pulse Rate 91 90 Respiratory Rate 20 Blood Pressure 153/77 H Pulse Oximetry 99 Oxygen Delivery Room Air 06/01/24 00:00 05/31/24 20:00 06/01/24 00:00 Temperature 98.6 F Pulse Rate 116 H 95 81 Respiratory Rate 18 Blood Pressure 122/69 Pulse Oximetry 95 Oxygen Delivery 06/01/24 04:00 06/01/24 04:00 06/01/24 08:29 Temperature 97.9 F Pulse Rate 68 93 Respiratory Rate 20 Blood Pressure 142/72 H Pulse Oximetry 98 98 Oxygen Delivery Room Air 06/01/24 08:00 06/01/24 08:00 Temperature 97.5 F L Pulse Rate 71 90 Respiratory Rate 18 Blood Pressure 144/83 H Pulse Oximetry 98 Oxygen Delivery Exam Const: General: comfortable and no acute distress Nutritional Appearance: average body habitus Orientation/consciousness: patient oriented x3 HENMT: Head: normocephalic Head images: 1. Large dry scab that is intact with no surrounding erythema 2. A few small scabs that are dry and intact with no surrounding erythema and no drainage. Ears: hearing grossly normal bilaterally Mouth: Yes moist mucous membranes Eyes: General: appearance normal, both eyes and all related structures Pupils: Equal, round and reactive pupils present Other: healing ecchymosis inferior to both eyes with some mild swelling Neck: Neck: normal visual inspection and full ROM Resp: Effort & Inspection: no respiratory distress Auscultation: clear to auscultation bilaterally Cardio: Rate: regular rate Rhythm: regular rhythm GI: Inspection: no abdominal wall ecchymosis, no edema and non-distended GI Palp: Yes Soft to palpation, No Tenderness to palpation present (GI), No Guarding due to palpation present (GI), Yes No hepatosplenomegaly present and No Rebound tenderness present Auscultation: normal bowel sounds Skin: General skin exam: normal color Other: Open wounds that are consistent with abrasion and some healing ecchymosis on bilateral anterior knees. Scant serous drainage on dressings. No purulent drainage our surrounding erythema. Small dry black eschar on the center of the right knee wound that is firm and appears superficial. Some ecchymosis and swelling of bilateral elbows with some open abrasions that are superficial without any surrounding erythema or purulent drainage. Right hand has a skin tear on the lateral aspect of the hand as well as some dark red and few small blackened areas of skin on the entire length of the lateral 5th finger. This is all dry and the superficial small areas of black eschar appear intact without any drainage or surrounding erythema. No swelling or erythema of the hand. Left hand has some areas of black discoloration of the skin that is firm and intact with no drainage of the 1st - 4th fingers on the dorsal hand and just the distal tips of the 1st-4th fingers of the plantar aspect. No drainage, dry and intact, no erythema or swelling of the hand. Left foot has multiple small superficial abrasions and some epithelial sloughing of the lateral ankle. There is a dark red/black area less than 2 cm on the distal great toe with the skin intact and completely dry. No erythema or swelling, no purulent drainage. Right foot has some epithelial sloughing and now an open superficial wound to the lateral ankle with the wound bed appearing pink with a few small areas of dark red/purple discoloration of some of the skin at the edges, no purulent drainage or surrounding erythema. There is very small areas of dry black eschar and dark discoloration of the skin only on the distal tip of the 1st through 5th toes, as well as a small circular dark red and slightly blackened area on the lateral aspect of the foot. No erythema of the foot and only mild 1+ swelling noted. No purulent drainage. Bilateral feet are warm with sensation of his entire foot and movement of all toes. DP and pedal pulses are palpable bilaterally. Neuro: General: moves all extremities and no focal motor deficits Speech: normal speech Motor exam (neuro): 5/5 motor strength present throughout Extrem: General: normal to inspection and edema Psych: Mental Status: mental status grossly normal Attitude: cooperative Insight: Fair insight present (Psych) Judgement: Fair judgement present (Psych) Results Labs 06/01/24 04:32 06/01/24 04:32 Labs: Abnormal lab results 05/28/24 06/01/24 Range/Units 08:41 04:32 RBC 2.59 L (4.6-6.20) M/mm3 Hgb 8.8 L (14.0-18.0) g/dL Hct 26.7 L (42.0-52.0) % MCV 103.1 H (80-100) fl Plt Count 135 L (150-375) k/mm3 MPV 11.3 H (7.4-10.4) fl Sodium 133 L (137-145) mmol/L Anion Gap 0 L (4-12) mmol/L Serum Osmolality 321 H (278-305) mOsm/kg Calcium 7.7 L (8.4-10.2) mg/dL Total Protein 5.0 L (6.3-8.2) g/dL Albumin 2.5 L (3.5-5.1) g/dL Diabetes panel 06/01/24 Range/Units 04:32 Sodium 133 L (137-145) mmol/L Potassium 3.8 (3.4-5.0) mmol/L Chloride 107 (98-107) mmol/L Carbon Dioxide 26 (22-30) mmol/L BUN 20 (9-20) mg/dL Creatinine 0.80 (0.7-1.3) mg/dL Glucose 96 (65-110) mg/dL Calcium 7.7 L (8.4-10.2) mg/dL AST 27 (17-59) U/L ALT 36 (6-50) U/L Alkaline Phosphatase 52 (38-126) U/L Total Protein 5.0 L (6.3-8.2) g/dL Albumin 2.5 L (3.5-5.1) g/dL Calcium panel 06/01/24 Range/Units 04:32 Calcium 7.7 L (8.4-10.2) mg/dL Albumin 2.5 L (3.5-5.1) g/dL Pituitary panel 06/01/24 Range/Units 04:32 Sodium 133 L (137-145) mmol/L Potassium 3.8 (3.4-5.0) mmol/L Chloride 107 (98-107) mmol/L Carbon Dioxide 26 (22-30) mmol/L BUN 20 (9-20) mg/dL Creatinine 0.80 (0.7-1.3) mg/dL Glucose 96 (65-110) mg/dL Calcium 7.7 L (8.4-10.2) mg/dL Adrenal panel 06/01/24 Range/Units 04:32 Sodium 133 L (137-145) mmol/L Potassium 3.8 (3.4-5.0) mmol/L Chloride 107 (98-107) mmol/L Carbon Dioxide 26 (22-30) mmol/L BUN 20 (9-20) mg/dL Creatinine 0.80 (0.7-1.3) mg/dL Glucose 96 (65-110) mg/dL Calcium 7.7 L (8.4-10.2) mg/dL Total Bilirubin 0.7 (0.2-1.3) mg/dL AST 27 (17-59) U/L ALT 36 (6-50) U/L Alkaline Phosphatase 52 (38-126) U/L Total Protein 5.0 L (6.3-8.2) g/dL Albumin 2.5 L (3.5-5.1) g/dL All other labs normal. Imaging Additional studies: ITS Impressions Head CT 05/28/24 09:57 IMPRESSION: Cerebral atherosclerosis and chronic small vessel ischemic changes of the cerebral white matter No skull fracture or acute intracranial finding Head/Cervical Spine/Facial Bones CT 05/28/24 10:03 IMPRESSION: No facial fracture Cervical spondylosis; no fracture or dislocation or locked facet of the cervical spine Chest CTA 05/28/24 10:10 IMPRESSION: No evidence of pulmonary embolism Prominent coronary artery atherosclerosis Small sliding hiatal hernia Esophagitis is suspected Cholelithiasis Elbow X-Ray 05/28/24 10:44 IMPRESSION: Negative left elbow Elbow X-Ray 05/28/24 10:45 IMPRESSION: Limited examination due to apparent extravasated radiopaque contrast material No obvious fracture, dislocation or joint effusion Hand X-Ray 05/28/24 10:48 IMPRESSION: Osteopenia Comment calcinosis of trying of the cartilage and wrist joint Polyarticular osteoarthritis No recent fracture or dislocation is detected Hand X-Ray 05/28/24 10:51 IMPRESSION: No recent fracture or dislocation is evident Polyarticular osteoarthritis Osteopenia Mild scapholunate dissociation Mild carpal chondrocalcinosis Foot X-Ray 05/28/24 10:57 IMPRESSION: Osteopenia; no fracture or dislocation Foot X-Ray 05/28/24 11:02 IMPRESSION: Osteopenia Mild plantar calcaneal enthesopathy No recent fracture or dislocation Knee X-Ray 05/28/24 11:04 IMPRESSION: Osteopenia Mild osteoarthritis No fracture or dislocation or joint effusion Knee X-Ray 05/28/24 11:06 IMPRESSION: Osteopenia Osteoarthritis involving primarily the lateral compartment Chondrocalcinosis No fracture or dislocation or joint effusion Abdomen/Pelvis CT 05/28/24 12:40 IMPRESSION: Status post sternotomy Minimal infiltrate or atelectasis in the dependent right lower lobe Small sliding hiatal hernia Cholelithiasis Occasional bilateral renal cysts Prominent amount of fecal material in the rectum and sigmoid colon; no bowel obstruction or free air Diverticulosis of left and right colon; no evidence of diverticulitis Normal appendix Chest X-Ray 05/29/24 13:17 IMPRESSION: 1. PICC tip in abnormal position in the right neck. Chest X-Ray 05/29/24 13:52 IMPRESSION: 1. PICC tip at the superior cavoatrial junction. Chest X-Ray 05/30/24 11:00 IMPRESSION: 1. Mild atelectasis in right lower lung zone.
[2024-06-01] MEDS: HYDROmorphone HCL INJ (*CRX) 1 MG/ML SYR 0.5 MG IV PUSH (11:36)
[2024-06-01 12:00] VITALS: BP 132/70; PULSE 82; PULSE 89; RESP 18; TEMP 36.9; O2SAT 99
[2024-06-01 14:44] LABS: Osmolality, Urine 658 mOsm/kg (50-1200)
--- NOTE | 2024-06-01 15:30 | PC.NURSE ---
Went over dressing changes with patients friend. Friend verbalized understanding.
[2024-06-01 16:00] VITALS: BP 129/67; PULSE 112; PULSE 88; RESP 18; TEMP 36.5; O2SAT 98
--- NOTE | 2024-06-01 16:54 | P.DS_ITS ---
DS: Admitting Diagnosis Discharge Date 06/01/2024 Admitting Diagnosis Fall DS: Discharge Diagnosis Discharge Diagnosis (1) Hypothermia: Code(s): T68.XXXA - Hypothermia, initial encounter Status: Acute Assessment and Plan: Please refer to hospital course for brief summary (2) Lactic acidosis: Code(s): E87.20 - Acidosis, unspecified Status: Acute (3) Encephalopathy: Code(s): G93.40 - Encephalopathy, unspecified Status: Resolved (4) Fall from ground level: Code(s): W18.30XA - Fall on same level, unspecified, initial encounter Status: Acute (5) Macrocytic anemia: Code(s): D53.9 - Nutritional anemia, unspecified Status: Acute (6) Daily consumption of alcohol: Code(s): Z78.9 - Other specified health status Status: Acute (7) Chronic prescription opiate use: Code(s): Z79.891 - intermediate accountant (current) use of opiate analgesic Status: Acute (8) Coronary artery disease: Code(s): I25.10 - Atherosclerotic heart disease of [place] coronary artery without angina pectoris Status: Acute (9) Chronic obstructive pulmonary disease: Code(s): J44.9 - Chronic obstructive pulmonary disease, unspecified Status: Acute (10) Hypertension: Code(s): I10 - Essential (primary) hypertension Status: Acute (11) Latent tuberculosis: Code(s): Z22.7 - Latent tuberculosis Status: Acute (12) Frostbite: Code(s): T33.90XA - Superficial frostbite of unspecified sites, initial encounter Status: Acute Plan Hypothermia, resolved from weather exposure s/p bear hugger and patient's temperature within normal limits Wall bite Surgery consulted Advised to follow-up with vascular surgeon Fall, Dizziness CT scans of the head, cervical spine, and facial bones were without acute findings. CT scans of the chest, abdomen, and pelvis showed prominent amount of fecal material in the colon no fractures patient denies any syncope patient noted he [facility] E[facility] ordered no significant changes lactic acidosis, from hypothermia resolved continue IVF Constipation CT AP showed constipation continue Miralax Elevated CK Ck 674, repeat 111 s/p IVF monitor Macrocytic anemia Hb 10.9, MCV 107.2 Likely from alcohol abuse B12 and folate within normal multiple wound on knees and feet Wound care following Alcohol intoxication patient counseled about alcohol cessation continue CIWA protocol, thiamine and Folic acid Latent TB Continue Isoniazid and Pyridoxine COPD continue home bronchodilators HTN titrate home meds with clinical course hx of Opioids prescription abuse counseled, monitor DVT prophylaxis on Sq Lovenox Awaiting ECHO result for further eval DS: Summary Hospital Course Hospital Course: 79-year-old male with hypertension, hyperlipidemia, coronary artery disease, chronic obstructive pulmonary, 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 He was hypothermic and quite confused on arrival to the emergency department but now that he is warm he is alert and oriented x4 and is able to provide a pretty good history. He was in his usual state of health yesterday and went to a basketball game and then to the [facility] where he had several drinks with his friends. He returned home around midnight and when he got out of his truck he was feeling dizzy and he fell forward onto the ground. Throughout the night he made multiple attempts to get himself up from the ground to no avail. He has severe osteoarthritis in both knees and it is to the point where he has difficulties standing up from a chair. He remembers crawling around the driveway and trying to find something to help himself up until eventually he gave up. He had his cell phone in his pocket but did not call for help for unclear reasons. With further questioning he reports having dizzy spells recently for which [facility] and he has at least had an echocardiogram done fairly recently. He has difficulties describing what he means by dizzy and denies both feelings of abnormal motion and lightheadedness. He describes neuropathy symptoms in his legs, feet, and arms and this has been ongoing for quite some time. He denies loss of consciousness in the fall last night and he reports having all over body aches but no articular complaints at the time my evaluation. He denies fever, cold and flu symptoms, chest pain, pleuritic pain, palpitations, orthopnea, paroxysmal nocturnal dyspnea, cough, abdominal pain, nausea, vomiting, diarrhea, dysuria, visual changes, focal weakness, facial droop, and difficulty speaking and swallowing. In the ED: His temperature was 85.3? F on arrival with the remainder of his vital signs being stable. Labs were significant for WBC count 21.4, hemoglobin 11.9, sodium 132, carbon dioxide 18, anion gap 13, BUN 34, creatinine 1.20, glucose 124, lactic acid 7.8, total creatinine kinase 259, proBNP 1160, total protein 6.0, albumin 3.2. Drug screen was positive for opiates. Ethyl alcohol was 120. Numerous radiographs were negative for acute findings. CT scans of the head, cervical spine, and facial bones were without acute findings. CT scans of the chest, abdomen, and pelvis showed prominent amount of fecal material in the colon and suspected esophagitis. He was placed under a Gene Hugger and his temperature is now normal. He received a 3 L normal saline bolus with normalization of lactic acid level. He was also given vancomycin and piperacillin/tazobactam for possible underlying infection and he is being admitted in this setting for further treatment and evaluation. During the course of hospitalization, antibiotic discontinued because no evidence of infection. Echocardiogram was taken which shows no significant findings. We believe the fall might be due to his alcohol. Had a long conversation about his alcoholism and patient agrees to decrease the amount of drinking. Advised to wear [email or web address] or easy access of cell phone and call 911 in case of fall or in the emergency. Patient has multiple wounds and possible for frostbite. He agrees to follow up with vascular surgeon in [place]. surgery team recommends to continue local wound care with silver gel dressing changes and xeroform gauze over the toe and knee wounds. Status at Discharge Cognitive/behavioral status at discharge: Stable Time Spent with Patient Time attestation: Total time spent providing and/or coordinating discharge services: 45 minutes Exam Narrative: General: Ill-appearing gentleman the semi-Bean position in bed. Weight: 90.1 kg. BMI: 26.2. HEENT: Multiple bruises and abrasions to the face. Pupils are reactive and extraocular motions are intact. Sclera anicteric. Conjunctiva mildly injected. Right eyelid is more swollen compared to the left. Small abrasion over the bridge of the nose. Lips are swollen. Tacky mucous membranes. Neck: Supple. No midline vertebral tenderness. Respiratory: Respirations are nonlabored and he is speaking in full sentences. Lung sounds clear to auscultation. Cardiovascular: Tachycardic with normal S1-S2. Well-healed sternotomy. Gastrointestinal: Abdomen is soft, nontender, and nondistended with positive bowel sounds. Skin: He is warm at the time my evaluation, currently under a Gene Hugger. Normal capillary refill. Nearly head to toe abrasions and skin tears including on the face and extremities as well as the pads of the fingers and toes. Extremities: No cyanosis or clubbing. Mild edema of all the extremities. Peripheral pulses intact. Neurological: Alert and oriented x4 at the time my evaluation. Cranial nerves 2-12 are grossly intact. Speech is clear. No pronator drift. No facial asymmetry. No gross focal deficits to casual conversation. Psychiatric: Pleasant and cooperative with appropriate mood and affect. DS: Data Data Completed and Pending Labs on day of discharge: Labs from last 24 hours 06/01/24 05/29/24 04:32 06:53 WBC 9.7 RBC 2.59 L Hgb 8.8 L Hct 26.7 L MCV 103.1 H MCH 34.0 MCHC 33.0 RDW 13.8 Plt Count 135 L MPV 11.3 H % Immature Plt Fraction 5.5 Sodium 133 L Potassium 3.8 Chloride 107 Carbon Dioxide 26 Anion Gap 0 L BUN 20 Creatinine 0.80 Estim Creat Clear Calc 72 Estimated GFR > 60 Glucose 96 Calcium 7.7 L Total Bilirubin 0.7 AST 27 ALT 36 Alkaline Phosphatase 52 Total Protein 5.0 L Albumin 2.5 L Urine Osmolality 658 Preliminary micro results at discharge 05/30/24 21:34 Blood Culture - Preliminary Blood 05/30/24 16:11 Blood Culture - Preliminary Blood 05/28/24 20:52 Blood Culture - Preliminary Blood 05/28/24 14:38 Blood Culture - Preliminary Blood Discharge Plan Discharge Attending physician on discharge: Blaise Clark Consulting providers: Juan Manuel Javed Discharging Clinician: Blaise Clark Patient Disposition: Home, Self-Care Activity: as tolerated Diet: regular Discharge Instructions: Advised lifestyle modification and consciousness when standing up to avoid orthostatic hypertension. Advised reduce the consumption of alcohol. Advised to have access like lifeline or cellphone and called 911 in case of emergency. Advised to follow-up with vascular surgeon and patient agrees to see his primary care physician at [place] and follow-up with that. Recommend to continue local wound care with silver gel dressing changes and xeroform gauze over the toe and knee wounds Patient Instructions: Antibiotic Form, Acute Hypothermia (DC), Removal of a Central Line, PICC, or Midline Catheter (DC) Stand Alone Forms: General Discharge Information Follow-up/Referrals: UNKNOWN,DOCTOR [Primary Care Provider] - 1 Week (Follow-up with primary care physician within a week upon discharge follow-up vascular surgeon for the wounds and the frostbite) Discharge Medications: Continued atorvastatin 40 mg Tablet 40 mg PO HS hydrocodone-acetaminophen 5-325 mg Tablet 1 tablet PO Q6H PRN (Reason: Pain) amlodipine 5 mg Tablet 5 mg PO HS isoniazid 300 mg Tablet 300 mg PO DAILY pyridoxine (vitamin B6) 50 mg Tablet 50 mg PO DAILY allopurinol 300 mg Tablet 300 mg PO HS hydrochlorothiazide 25 mg Tablet 25 mg PO DAILY naloxone 0.4 mg/0.4 mL Auto-Injector 0.4 mg IM DAILY dorzolamide-timolol (PF) 2-0.5 % Drops 1 drp OPHTHALMIC (EYE) BID Rx Instructions: RIGHT EYE albuterol 2 inh BYMOUTH QID PRN (Reason: Shortness Of Breath Or Wheezing) Striverdi Respimat 2.5 mcg/actuation Mist 2 puff INHALATION DAILY vitamin B complex Tablet 1 tablet PO DAILY cholecalciferol (vitamin D3) [Vitamin D3] 25 mcg (1,000 unit) Tablet 1,000 unit PO HS aspirin 81 mg Tablet 81 mg PO DAILY Date of admission: 05/28/24 14:31 Primary Care Provider: UNKNOWN,DOCTOR Admitting Provider: Veronique Tyler Attending physician on admission: Veronique Tyler Condition: Stable Quality VTE Prophylaxis VTE prophylaxis: mechanical ordered
[2024-06-01] MEDS: NEOMYCIN/POLYMYXIN/BACITRACIN OINTMENT PACKET 1 PACKET (17:18)
[2024-06-07 19:58] LABS: Vitamin B6 9.1 ng/mL (2.1-21.7)
== END 2024-06-01 18:20 | disposition home or self-care (01) | DRG 922 ==
LOC: ANHED 14:29 → ANHIMU 15:15 → ANH3MEDSUR 06-01 16:05 → ANHIMU 06-02 09:34
PROVIDERS: Internal Medicine; Physician Assistant; Admitting Provider Internal Medicine; Emergency Provider Emergency Medicine; Visit Provider General Practice
DX: T68.XXXA Hypothermia, initial encounter (principal); J18.9 Pneumonia, unspecified organism; T33.532A Superficial frostbite of left finger(s), initial encounter; T33.531A Superficial frostbite of right finger(s), initial encounter; T33.832A Superficial frostbite of left toe(s), initial encounter; T33.831A Superficial frostbite of right toe(s), initial encounter; E87.21 Acute metabolic acidosis; G93.40 Encephalopathy, unspecified; M62.82 Rhabdomyolysis; F10.229 Alcohol dependence with intoxication, unspecified; X31.XXXA Exposure to excessive natural cold, initial encounter; W18.39XA Other fall on same level, initial encounter; D72.829 Elevated white blood cell count, unspecified; S00.81XA Abrasion of other part of head, initial encounter; J44.9 Chronic obstructive pulmonary disease, unspecified; I25.10 Atherosclerotic heart disease of native coronary artery without angina pectoris; E78.5 Hyperlipidemia, unspecified; I10 Essential (primary) hypertension; M19.90 Unspecified osteoarthritis, unspecified site; H40.9 Unspecified glaucoma; G89.4 Chronic pain syndrome; S80.212A Abrasion, left knee, initial encounter; S80.211A Abrasion, right knee, initial encounter; S90.512A Abrasion, left ankle, initial encounter; S90.511A Abrasion, right ankle, initial encounter; S90.415A Abrasion, left lesser toe(s), initial encounter; S90.414A Abrasion, right lesser toe(s), initial encounter; S40.812A Abrasion of left upper arm, initial encounter; S40.811A Abrasion of right upper arm, initial encounter; Z95.5 Presence of coronary angioplasty implant and graft; Z95.1 Presence of aortocoronary bypass graft; Z98.49 Cataract extraction status, unspecified eye; Z87.891 Personal history of nicotine dependence; Z22.7 Latent tuberculosis; Z79.891 Long term (current) use of opiate analgesic; D53.9 Nutritional anemia, unspecified; K59.00 Constipation, unspecified; R42 Dizziness and giddiness
CPT/HCPCS: 36415; 36569; 36600; 70450; 70486; 71045; 71275; 72125; 73080; 73130; 73562; 73630; 74177; 80048; 80053; 80143; 80307; 81003; 82077; 82550; 82570; 82607; 82728; 82746; 82803; 82805; 82948; 83540; 83550; 83605; 83690; 83735; 83880; 83930; 83935; 84100; 84207; 84300; 84443; 84484; 84540; 85018; 85025; 85027; 85055; 85610; 85730; 86850; 86900; 86901; 87040; 87637; 87641; 93005; 93306; 94640; 96360; 96361; 97110; 97161; 97165; 97530; 97535; 99291; A9270; C1751; J0613; J1171; J1650; J1836; J1956; J2003; J2270; J2543; J3370; J3411; J7030; J7042; J7120; Q9967

== ENCOUNTER 2024-06-21 20:47 | Inpatient (IN) | payer MEDICARE, OTHER, SELFPAY ==
[2024-06-21] VITALS (7 sets, daily range): BP systolic 76–92; BP diastolic 57–71; PULSE 112–126; RESP 18–33; TEMP 36.3–36.9; O2SAT 96–98
--- NOTE | ~2024-06-21 | XR_ITS ---
Exam: Abdomen 1V HISTORY: NG INSERT COMPARISON: None. TECHNIQUE: Supine images of the lower chest and upper abdomen FINDINGS: Nasogastric tube extends into the left upper quadrant, presumably within the stomach. IMPRESSION: Nasogastric tube in good position and ready for immediate use. Reviewed, dictated and finalized at location A. WARE DEVELOPMENT MANAGER
--- NOTE | ~2024-06-21 | CT_ITS ---
Clinical indication:Pneumonia COMPARISON:05/28/2024. Reference is also made to multiple plain radiographs of the chest performed mo st recently on 06/21/2024 and dating back to 05/29/2024 TECHNIQUE: Multiple contiguous axial images of the chest were performed without the administration of intravenous contrast. FINDINGS: LUNG: Part solid pleural-based nodule within the right upper lobe (axial series image 26) measuring 11.4 x 10.4 x 11.6 mm. New from prior. Bibasilar pleural thickening and bibasilar and dependent honeycombing. This is an interval change from prior examination dated 05/28/2024 Varicose bronchiectasis within the left lower lobe, also an interval change. MEDIASTINUM: Calcified lymph node within the aortopulmonary window and the left hilum suggesting prio r granulomatous disease. HEART:Densely calcified atherosclerotic disease. The main pulmonary artery is enlarged, suggesting pu lmonary hypertension. SOFT TISSUES OF THE CHEST: Unremarkable BONES OF THE CHEST: Sternal wires in position. Heterogeneous appearance of the bone density suggestin g systemic disease. VISUALIZED PORTION OF THE UPPER ABDOMEN: Calcified atherosclerotic disease within the abdominal aorta . Punctate calcifications identified within the hepatic and splenic parenchyma, suggesting prior granul omatous disease. Colonic diverticulosis without surrounding inflammatory change. IMPRESSION: Bibasilar pleural thickening with bibasilar and dependent honeycombing, an interval parenchymal brar e from prior examination dated 05/28/2024. This interval change likely corresponds to the abnormality suggested on prior plain film evaluation o f a left-sided pleural effusion, of which there is none, on cross-sectional imaging. Part solid pleural-based nodule within the right upper lobe, new from prior. The time course of devel opment suggests inflammatory/infectious etiology. Follow-up to resolution is recommended. Reviewed, dictated and finalized at location A. GLASS FRAME POLISHER IMPRESSION: Bibasilar pleural thickening with bibasilar and dependent honeycombing, an inte rval parenchymal change from prior examination dated 05/28/2024. This interval change likely corresponds to the abnormality suggested on prior p ilana film evaluation of a left-sided pleural effusion, of which there is none, on cross-sectional imaging. Part solid pleural-based nodule within the right upper lobe, new from prior. Th e time course of development suggests inflammatory/infectious etiology. Follow- up to resolution is recommended.
--- NOTE | ~2024-06-21 | XR_ITS ---
CHEST RADIOGRAPH CLINICAL HISTORY: sob . COMPARISON: 05/30/2024 TECHNIQUE: Single portable view of the chest. FINDINGS Mechanical device projecting over the superior mediastinum, likely superficial to the patient. Sternal wires and mediastinal clips are identified, the wires are midline and intact. The remainder of the cardiomediastinal silhouette is otherwise unremarkable. Left-sided pleural effusion is suspected. The remainder of the lungs are clear. Visualized osseous structures and soft tissues are unremarkable. IMPRESSION: Left-sided pleural effusion without focal infiltrate. Reviewed, dictated and finalized at location A. O ENGINEER
--- NOTE | ~2024-06-21 | XR_ITS ---
CHEST RADIOGRAPH CLINICAL HISTORY: CENTRAL LINE PLACEMENT . COMPARISON: 06/21/2024 and 05/28/2024 CT examination TECHNIQUE: Single portable view of the chest. FINDINGS Interval placement of an endotracheal tube, with its tip projecting approximately 5 cm above the base of the jason. Orogastric tube extends below the left hemidiaphragm, presumably within the stomach. Sternal wires and mediastinal clips are identified, the wires are midline and intact. Interval placement of a right internal jugular central venous catheter with its tip projecting over t he proximal right atrium. 8 cm rectangular device, presumably superficial to the patient (not removed for the examination). The remainder of the cardiomediastinal silhouette is otherwise unremarkable. 8 mm density projecting over the left upper lobe corresponding to a part solid left upper lobe nodule on today's CT examination. 9 mm well-circumscribed nodule within the left lower lobe, corresponding to the calcified granuloma d etected on this morning's CT examination. The remainder of the lungs are otherwise clear. IMPRESSION: Right internal jugular central venous catheter in good radiographic position and ready for immediate use. Orogastric tube presumably within the stomach and ready for immediate use. Endotracheal tube in good radiographic position. Multifocal part solid nodularity, likely infectious as these findings were not present on the CT exam ination dated 05/28/2024 Reviewed, dictated and finalized at location A. NG IRONER IMPRESSION: Right internal jugular central venous catheter in good radiographic position an d ready for immediate use. Orogastric tube presumably within the stomach and ready for immediate use. Endotracheal tube in good radiographic position. Multifocal part solid nodularity, likely infectious as these findings were not present on the CT examination dated 05/28/2024
--- NOTE | 2024-06-21 20:52 | ECG_ITS ---
Test Date: 2024-06-21 21:16:31 Measurements Intervals [place] Rate: 118 P: 0 NH: 0 QRS: -12 QRSD: 108 T: 24 QT: 338 QTc: 475 Interpretive Statements narrow complex tachycardia with occasional extra beats Electronically Signed On 06-22-2024 13:47:28 DENTAL TECHNICIAN by Ronnie Razo M.D.
[2024-06-21 21:24] LABS: Basophils Absolute Auto 0.1 K/mm3 (0.0-0.1); Basophils Percent Auto 0.7 % (0.2-1.2); Eosinophils Percent Auto 0.1 % (0-4.4); Hematocrit 35.6 % (42.0-52.0); Hemoglobin 11.5 g/dL (14.0-18.0); Immature Granulocyte Absolute 1.08 K/mm3 (0.00-0.031); Immature Granulocyte Percent A 5.5 % (0-0.5); Lymphocytes Absolute Auto 3.46 K/mm3 (0.9-3.2); Lymphocytes Percent Auto 17.6 % (18.3-44.2); Mean Corpuscular HGB Conc 32.3 g/dl (32-36); Mean Corpuscular Hemoglobin 33.8 pg (26-34); Mean Corpuscular Volume 104.7 fl (80-100); Monocytes Absolute Auto 1.7 K/mm3 (0.1-0.6); Monocytes Percent Auto 8.6 % (2.6-8.5); Neutrophils Absolute Auto 13.3 K/mm3 (1.3-6.7); Neutrophils Percent Auto 67.5 % (45.5-73.1); Nucleated Red Blood Cells Perc 0.2 % (0.0-0.2); Platelet Count Result 199 k/mm3 (150-375); Red Cell Distribution Width 14.6 % (11.5-14.5); White Blood Count 19.7 K/mm3 (4.5-10.0)
[2024-06-21 21:34] LABS: Alanine Aminotransferase 18 U/L (6-50); Albumin Level 3.1 g/dL (3.5-5.1); Alkaline Phosphatase 125 U/L (38-126); Anion Gap 10 mmol/L (4-12); Aspartate Amino Transferase 61 U/L (17-59); Blood Urea Nitrogen 28 mg/dL (9-20); Calcium 8.3 mg/dL (8.4-10.2); Carbon Dioxide 19 mmol/L (22-30); Chloride 105 mmol/L (98-107); Estimated CRCL calculation 43 ml/min; Estimated Glomerular Filt Rate 49; Glucose 209 mg/dL (65-110); Potassium 3.9 mmol/L (3.4-5.0); Sodium 134 mmol/L (137-145)
[2024-06-21 21:38] LABS: Platelet Estimate Adequate (Adequate)
[2024-06-21 21:39] LABS: Anisocytosis 1+; Burr Cells 1+
[2024-06-21 21:45] LABS: Schistocytes None Seen
[2024-06-21 21:48] LABS: NT Pro B Type Natriuretic Pept 8410 pg/mL (19.9-100); Troponin I 0.038 ng/mL (0.000-0.034)
--- NOTE | 2024-06-21 22:31 | ED_ITS ---
HPI - SOB/Dyspnea General Chief Complaint: Shortness of Breath/Dyspnea Stated Complaint: hypotension, sob Time Seen by Provider: 06/21/24 20:52 Source: patient Mode of arrival: EMS Limitations: no limitations History of Present Illness HPI Narrative: 79 year old with a history of CAD status post CABG, stents few years ago presents to the ER with the complaints of shortness of breath and chest pain with started this evening. Patient states for the past few days he has not been feeling well. He denies any fever or chills. No his has occasional cough that started today. Patient states that he was admitted to the hospital in month of April after a syncopal episode and he passed out in his driveway and he will had hypothermia patient states that he has now Holter monitor .. He [facility] with a [facility]ft[facility] operator [facility] . elicited complaint: shortness of breath and cough Onset (ago): day(s) (1) Timing: constant Severity: moderate Exacerbating factors: lying flat and exertion Relieving factors: oxygen Associated symptoms: chest pain Treatment prior to arrival: none Related Data Home oxygen amount: none Home Medications ?Medication ?Instructions ?Recorded ?Confirmed ?Last Taken ?Type albuterol 2 inh BYMOUTH QID PRN Shortness Of 05/28/24 05/28/24 Unknown History Breath Or Wheezing allopurinol 300 mg tablet 300 mg PO HS 05/28/24 05/28/24 Unknown History amlodipine 5 mg tablet 5 mg PO HS 05/28/24 05/28/24 Unknown History aspirin 81 mg tablet 81 mg PO DAILY 05/28/24 05/28/24 05/27/24 History atorvastatin 40 mg tablet 40 mg PO HS 05/28/24 05/28/24 Unknown History cholecalciferol (vitamin D3) 25 1,000 unit PO HS 05/28/24 05/28/24 Unknown History mcg (1,000 unit) tablet (Vitamin D3) dorzolamide 2 %-timolol 0.5 % (PF) 1 drp ophthalmic (eye) BID 05/28/24 05/28/24 Unknown History eye drops hydrochlorothiazide 25 mg tablet 25 mg PO DAILY 05/28/24 05/28/24 Unknown History hydrocodone 5 mg-acetaminophen 325 1 tablet PO Q6H PRN Pain 05/28/24 05/28/24 Unknown History mg tablet isoniazid 300 mg tablet 300 mg PO DAILY 05/28/24 05/28/24 Unknown History naloxone 0.4 mg/0.4 mL injection, 0.4 mg IM DAILY 05/28/24 05/28/24 Unknown History auto-injector olodaterol 2.5 mcg/actuation mist 2 puff inhalation DAILY 05/28/24 05/28/24 Unknown History for inhalation (Striverdi Respimat) pyridoxine (vitamin B6) 50 mg 50 mg PO DAILY 05/28/24 05/28/24 Unknown History tablet vitamin B complex 1 tablet PO DAILY 05/28/24 05/28/24 Unknown History Allergies Allergy/AdvReac Type Severity Reaction Status Date / Time Sulfa (Sulfonamide Allergy Unknown Verified 05/28/24 18:08 Antibiotics) Review of Systems 2 Review of Systems: All systems reviewed & are unremarkable except as noted in HPI and below Constitutional: Constitutional: Reports no additional constitutional complaints Eyes: Eyes: Reports no additional eye complaints ENT: Reports system reviewed and no additional complaints, except as documented Cardiovascular: Cardiovascular: Reports as per HPI Respiratory: Respiratory: Reports as per HPI Gastrointestinal: Gastrointestinal: Reports no additional gastrointestinal complaints Musculoskeletal: Musculoskeletal: Reports no additional musculoskeletal complaints Integumentary/Breasts: Skin/Breast: Reports system reviewed and no additional complaints, except as docu Neurologic: Reports system reviewed and no additional complaints, except as documented PMFSH Past Medical History Medical History Chronic obstructive pulmonary disease Chronic pain syndrome Chronic prescription opiate use Coronary artery disease Daily consumption of alcohol Glaucoma Gout Hyperlipidemia Hypertension Kidney stones Latent tuberculosis Vitamin B12 deficiency Surgical History Surgical History History of cataract extraction History of coronary artery bypass graft x 3 (2003) History of coronary artery stent placement x2 History of detached retina repair History of hernia repair Family History Family History Other Family history non-contributory Social History Social History Social History: Surrogate medical decision maker: Jeannette Abdi, Des Milligan, Conor Baldwin (children). Code status: Full code. Smoking packs per day: 2 Smoking cigarettes per day: 40.0 Years smoked: 45 Smoking pack-years: 90.00 Smoking status: Former smoker Tobacco type: cigarettes Additional smoking assessment comments: 2003 Alcohol intake: current Drinks per week: 25 Alcohol use details: 3 to 4 beers a night Substance use: current Substance use type: marijuana Last use: 05/08/2024 Do You Feel Safe in your Home?: Yes Lack of Transportation: YES Lack of Food: Never True Current Housing: I Have Housing Concerned About Future Housing: No Difficulty Paying Gas/Electric Bills: No Difficulty Paying for Meds: No Currently Unemployed: No Education: Bachelor's Degree Difficulty w/ Childcare or Family Care: No Additional living arrangements comments: since 2022. He has 3 children. Lives alone in [place]. Additional occupation/education comments: Was in the [employer] for 3.5 years and served overseas in [place]. Spiritual care concerns: No Exam 2 Narrative: GENERAL: ill -appearing, well-nourished, and in no acute distress. HEAD: Normocephalic, atraumatic. EYES: PERRLA and EOMI. ENT: Nares clear, no rhinorrhea or epistaxis. Mucous membranes moist. NECK: Supple. CHEST: No respiratory distress.no wheeze , decreased air entry HEART: Regular rate and rhythm. No murmur heard. Normal peripheral pulses. ABDOMEN: Soft, nontender, nondistended, normal active bowel sounds. EXTREMITIES: Normal range of motion. No edema. SKIN: Warm, dry, no rash. NEURO: No focal deficits. Alert and oriented x3. PSYCH: Normal mood and affect. Course Course Emergency Course: Patient is comfortable with 2 L of oxygen however is tachycardic EKG shows AFib with history of new given 10 mg of Cardizem. Also his chest x-ray showed pleural effusion with elevated proBNP new give him IV Lasix 40 mg g. I did inform him about his lab work is agreeable with admission. Discussed with Dr. Carlos accepted the patient will consult Cardiology in the morning. Vital Signs Vital signs: Vital Signs Temperature 36.9 C 06/21/24 20:44 Pulse Rate 123 H 06/21/24 20:44 Respiratory Rate 33 H 06/21/24 20:44 Blood Pressure 90/65 L 06/21/24 20:44 Pulse Oximetry 96 06/21/24 20:44 Oxygen Delivery Nasal Cannula 06/21/24 20:44 Oxygen Flow Rate 1 06/21/24 20:44 Temperature 36.9 C 06/21/24 20:44 Pulse Rate 112 H 06/21/24 22:17 Respiratory Rate 19 06/21/24 22:17 Blood Pressure 92/71 L 06/21/24 22:17 Pulse Oximetry 98 06/21/24 21:04 Oxygen Delivery Nasal Cannula 06/21/24 21:04 Oxygen Flow Rate 1 06/21/24 21:04 MDM - SOB/Dyspnea Differential Diagnosis Differential diagnosis: Likely congestive heart failure and community acquired pneumonia Medical Records Attestation: I reviewed the patient's medical records. Lab Data Attestation: I reviewed the patient's lab results. 06/21/24 21:19 06/21/24 21:19 Labs: Lab Results 06/21/24 Range/Units 21:19 WBC 19.7 H (4.5-10.0) K/mm3 RBC 3.40 L (4.6-6.20) M/mm3 Hgb 11.5 L (14.0-18.0) g/dL Hct 35.6 L (42.0-52.0) % MCV 104.7 H (80-100) fl MCH 33.8 (26-34) pg MCHC 32.3 (32-36) g/dl RDW 14.6 H (11.5-14.5) % Plt Count 199 (150-375) k/mm3 MPV 12.0 H (7.4-10.4) fl Immature Gran % (Auto) 5.5 H (0-0.5) % Neut % (Auto) 67.5 (45.5-73.1) % Lymph % (Auto) 17.6 L (18.3-44.2) % [place] % (Auto) 8.6 H (2.6-8.5) % Eos % (Auto) 0.1 (0-4.4) % Baso % (Auto) 0.7 (0.2-1.2) % Lymph # (Auto) 3.46 H (0.9-3.2) K/mm3 [place] # (Auto) 1.7 H (0.1-0.6) K/mm3 Eos # (Auto) 0.0 (0-0.3) K/mm3 Baso # (Auto) 0.1 (0.0-0.1) K/mm3 Abs Immat Gran (auto) 1.08 H (0.00-0.031) K/mm3 Absolute Neuts (auto) 13.3 H (1.3-6.7) K/mm3 Absolute Nucleated RBC 0.030 H (0.0-0.012) K/mm3 Nucleated RBC % 0.2 (0.0-0.2) % Platelet Estimate Adequate (Adequate) Anisocytosis 1+ Gurdeep Cells 1+ Schistocytes None seen Sodium 134 L (137-145) mmol/L Potassium 3.9 (3.4-5.0) mmol/L Chloride 105 (98-107) mmol/L Carbon Dioxide 19 L (22-30) mmol/L Anion Gap 10 (4-12) mmol/L BUN 28 H (9-20) mg/dL Creatinine 1.40 H (0.7-1.3) mg/dL Estim Creat Clear Calc 43 ml/min Estimated GFR 49 L (59 - ) Glucose 209 H (65-110) mg/dL Calcium 8.3 L (8.4-10.2) mg/dL Total Bilirubin 1.0 (0.2-1.3) mg/dL AST 61 H (17-59) U/L ALT 18 (6-50) U/L Alkaline Phosphatase 125 (38-126) U/L Troponin I 0.038 H* (0.000-0.034) ng/mL NT-Pro-B Natriuret Pep 8410 H (19.9-100) pg/mL Total Protein 6.0 L (6.3-8.2) g/dL Albumin 3.1 L (3.5-5.1) g/dL Imaging Data Radiologist's impression: ITS Impressions Chest X-Ray 06/21/24 21:54 IMPRESSION: Left-sided pleural effusion without focal infiltrate. ECG Data EKG #1: ECG completion date: 06/21/24 ECG completion time: 21:16 EKG Interpretation: tachycardia (118), atrial fibrillation, non-specific ST changes, normal QRS and NL axis Critical Care Time Critical Care Time Critical Care Time: Yes Total Critical Care Time: 45 Discharge Plan Discharge Clinical Impression: Pleural effusion on left, Atrial fibrillation with RVR Congestive heart failure Qualifiers: Heart failure type: unspecified Heart failure chronicity: acute Qualified Code(s): I50.9 - Heart failure, unspecified Patient Disposition: Still a Patient Condition: Stable Patient Language: Welsh Prescriptions: No Action atorvastatin 40 mg Tablet 40 mg PO HS hydrocodone-acetaminophen 5-325 mg Tablet 1 tablet PO Q6H PRN (Reason: Pain) amlodipine 5 mg Tablet 5 mg PO HS isoniazid 300 mg Tablet 300 mg PO DAILY pyridoxine (vitamin B6) 50 mg Tablet 50 mg PO DAILY allopurinol 300 mg Tablet 300 mg PO HS hydrochlorothiazide 25 mg Tablet 25 mg PO DAILY naloxone 0.4 mg/0.4 mL Auto-Injector 0.4 mg IM DAILY dorzolamide-timolol (PF) 2-0.5 % Drops 1 drp OPHTHALMIC (EYE) BID Rx Instructions: RIGHT EYE albuterol 2 inh BYMOUTH QID PRN (Reason: Shortness Of Breath Or Wheezing) Striverdi Respimat 2.5 mcg/actuation Mist 2 puff INHALATION DAILY vitamin B complex Tablet 1 tablet PO DAILY cholecalciferol (vitamin D3) [Vitamin D3] 25 mcg (1,000 unit) Tablet 1,000 unit PO HS aspirin 81 mg Tablet 81 mg PO DAILY Follow-up/Referrals: UNKNOWN,DOCTOR [Primary Care Provider] - Time of Disposition: 22:42
[2024-06-21] MEDS: FUROSEMIDE INJ 40 MG/4 ML VIAL IV PUSH (23:09)
[2024-06-21] MEDS: SODIUM CHLORIDE 0.9% IV 500 ML 999 ML IV CONT (23:13)
--- NOTE | 2024-06-21 23:13 | PC.NURSE ---
provider VORB to discontinue Diltiazem at this time due to hypotension. VORB from Dr. Weeks to still give 40mg Lasix with 500ml Bolus of IV fluids.
--- NOTE | 2024-06-21 23:14 | PC.NURSE ---
care and report given to BASHIR Han. all questions answered.
--- NOTE | 2024-06-21 23:24 | PC.NURSE ---
multiple ED RN's looked for vein for blood cultures with no success. phlebotomy consulted and unable to get blood as well. one green top blood culture sent to lab by this RN.
--- NOTE | 2024-06-21 23:25 | P.HP_ITS ---
H&P: HPI History of Present Illness Date/Time: 06/21/24 23:25 Chief Complaint: Shortness of breath Narrative: This is an 79-year-old male with past medical history significant for dyslipidemia, hypertension, gout, glaucoma, COPD. Patient usually gets his care at [facility] he comes today to the emergency room due to shortness of breath, generalized weakness denies any chest pain, no cough, no sputum prod uction, no leg swelling, no fevers rigors or chills. Patient recently discharged from [facility]. Preliminary workup was significant for chest x-ray with pleural effusions. While in the emergency room patient had episode of atrial fibrillation with RVR and hypotension. Patient has been admitted for further evaluation management and treatment. CHEST RADIOGRAPH CLINICAL HISTORY: sob . COMPARISON: 05/30/2024 TECHNIQUE: Single portable view of the chest. FINDINGS Mechanical device projecting over the superior mediastinum, likely superficial to the patient. Sternal wires and mediastinal clips are identified, the wires are midline and intact. The remainder of the cardiomediastinal silhouette is otherwise unremarkable. Left-sided pleural effusion is suspected. The remainder of the lungs are clear. Visualized osseous structures and soft tissues are unremarkable. IMPRESSION: Left-sided pleural effusion without focal infiltrate. Review of Systems Review of Systems: Shortness of breath, generalized weakness PMFSH Past Medical History Medical History Chronic obstructive pulmonary disease Chronic pain syndrome Chronic prescription opiate use Coronary artery disease Daily consumption of alcohol Glaucoma Gout Hyperlipidemia Hypertension Kidney stones Latent tuberculosis Vitamin B12 deficiency Surgical History Surgical History History of cataract extraction History of coronary artery bypass graft x 3 (2003) History of coronary artery stent placement x2 History of detached retina repair History of hernia repair Family History Family History Other Family history non-contributory Social History Social History Social History: Surrogate medical decision maker: Jeannette Abdi, Des Milligan, Conor Baldwin (children). Code status: Full code. Smoking packs per day: 2 Smoking cigarettes per day: 40.0 Years smoked: 45 Smoking pack-years: 90.00 Smoking status: Former smoker Tobacco type: cigarettes Additional smoking assessment comments: 2003 Alcohol intake: current Drinks per week: 21 Alcohol use details: 3 to 4 beers a night Substance use: current Substance use type: marijuana Last use: 04/2024 Do You Feel Safe in your Home?: Yes Lack of Transportation: No Lack of Food: Never True Current Housing: I Have Housing Concerned About Future Housing: No Difficulty Paying Gas/Electric Bills: No Difficulty Paying for Meds: No Currently Unemployed: No Education: Bachelor's Degree Difficulty w/ Childcare or Family Care: No Additional living arrangements comments: since 2022. He has 3 children. Lives alone in [place]. Additional occupation/education comments: Was in the [employer] for 3.5 years and served overseas in [place]. Spiritual care concerns: No Meds Home Medications and Allergies Home Medications ?Medication ?Instructions ?Recorded ?Confirmed ?Type albuterol 2 inh BYMOUTH QID PRN Shortness Of 05/28/24 06/22/24 History Breath Or Wheezing allopurinol 300 mg tablet 300 mg PO HS 05/28/24 06/22/24 History amlodipine 5 mg tablet 5 mg PO HS 05/28/24 06/22/24 History aspirin 81 mg tablet 81 mg PO DAILY 05/28/24 06/22/24 History atorvastatin 40 mg tablet 40 mg PO HS 05/28/24 06/22/24 History cholecalciferol (vitamin D3) 25 1,000 unit PO HS 05/28/24 06/22/24 History mcg (1,000 unit) tablet (Vitamin D3) dorzolamide 2 %-timolol 0.5 % (PF) 1 drp ophthalmic (eye) BID 05/28/24 06/22/24 History eye drops hydrochlorothiazide 25 mg tablet 25 mg PO DAILY 05/28/24 06/22/24 History hydrocodone 5 mg-acetaminophen 325 1 tablet PO Q6H PRN Pain 05/28/24 06/22/24 History mg tablet isoniazid 300 mg tablet 300 mg PO DAILY 05/28/24 06/22/24 History naloxone 0.4 mg/0.4 mL injection, 0.4 mg IM DAILY 05/28/24 06/22/24 History auto-injector olodaterol 2.5 mcg/actuation mist 2 puff inhalation DAILY 05/28/24 06/22/24 History for inhalation (Striverdi Respimat) pyridoxine (vitamin B6) 50 mg 50 mg PO DAILY 05/28/24 06/22/24 History tablet vitamin B complex 1 tablet PO DAILY 05/28/24 06/22/24 History Allergies Allergy/AdvReac Type Severity Reaction Status Date / Time Sulfa (Sulfonamide Allergy Unknown Verified 05/28/24 18:08 Antibiotics) Vital Signs Vital Signs - 24 hr 06/21/24 20:44 06/21/24 20:55 06/21/24 21:04 Temperature 98.4 F Pulse Rate 123 H 126 H Respiratory Rate 33 H 31 H Blood Pressure 90/65 L 90/65 L Pulse Oximetry 96 97 97 Oxygen Delivery Nasal Cannula Nasal Cannula Oxygen Flow Rate 1 1 06/21/24 21:04 06/21/24 22:02 06/21/24 22:17 Temperature Pulse Rate 120 H 112 H 112 H Respiratory Rate 31 H 22 H 19 Blood Pressure 76/57 L 90/68 L 92/71 L Pulse Oximetry 98 Oxygen Delivery Oxygen Flow Rate 06/21/24 22:52 06/21/24 22:52 06/21/24 22:53 Temperature 97.4 F L Pulse Rate 119 H 119 H Respiratory Rate 18 Blood Pressure 92/65 L Pulse Oximetry 98 98 Oxygen Delivery Nasal Cannula Oxygen Flow Rate 1 Exam Narrative: Laying in a stretcher Const: General: cooperative, comfortable, no acute distress, well developed, alert, awake, ill appearing chronically and average body habitus Nutritional Appearance: average body habitus Orientation/consciousness: patient oriented x3 Other: Patient is laying in a stretcher, frail looking HENMT: Head: normal to inspection, normocephalic and atraumatic Ears: hearing grossly normal bilaterally Face/Nose/Sinus: normal facial exam Face and sinus: normal facial exam Eyes: General: appearance normal, both eyes and all related structures Pupils: Equal, round and reactive pupils present EOM: EOMs intact bilaterally Neck: Neck: full ROM, no lymphadenopathy and no JVD Thyroid: thyroid normal Lymphatic: no lymphadenopathy noted Resp: Effort & Inspection: normal respiratory effort and able to speak in complete sentences Auscultation: diminished lung sounds Cardio: Jugular venous distension: no JVD Rate: regular rate Rhythm: regular rhythm Heart sounds: S1 normal heart sound present and S2 normal heart sound present GI: GI Palp: Yes Soft to palpation and Yes No hepatosplenomegaly present : General: Yes deferred Skin: Rashes: no rashes Wounds: no wounds Neuro: General: patient oriented x3 and CN's II-XI intact bilaterally Cranial nerves: Yes CN's II-XII intact bilaterally and Yes Equal, round and reactive pupils present Cognition (Neuro): normal cognition Speech: normal speech Gait exam (Neuro): Unable to assess gait Motor exam (neuro): 5/5 motor strength present throughout Extrem: General: normal to inspection, full ROM, no joint enlargement and no pedal edema H&P: Results Labs Labs: Short CBC 06/21/24 Range/Units 21:19 WBC 19.7 H (4.5-10.0) K/mm3 Hgb 11.5 L (14.0-18.0) g/dL Hct 35.6 L (42.0-52.0) % Plt Count 199 (150-375) k/mm3 BMP 06/21/24 21:19 Sodium 134 L Potassium 3.9 Chloride 105 Carbon Dioxide 19 L BUN 28 H Creatinine 1.40 H Glucose 209 H Calcium 8.3 L Cardiac Enzymes 06/21/24 Range/Units 21:19 Troponin I 0.038 H* (0.000-0.034) ng/mL Liver Function 06/21/24 Range/Units 21:19 Total Bilirubin 1.0 (0.2-1.3) mg/dL AST 61 H (17-59) U/L ALT 18 (6-50) U/L Alkaline Phosphatase 125 (38-126) U/L Albumin 3.1 L (3.5-5.1) g/dL Assessment and Plan Assessment and plan (1) Atrial fibrillation with RVR: Code(s): I48.91 - Unspecified atrial fibrillation Status: Acute Assessment and Plan: Admit to IMU Patient received diltiazem 10 mg IV push in emergency room (2) Pleural effusion on left: Code(s): J90 - Pleural effusion, not elsewhere classified Status: Acute Assessment and Plan: Patient started on antibiotics Cultures in progress (3) Congestive heart failure: Qualifiers: Heart failure chronicity: acute Heart failure type: unspecified Qualified Code(s): I50.9 - Heart failure, unspecified Code(s): I50.9 - Heart failure, unspecified Status: Acute Assessment and Plan: Monitor daily intake and output Holding off diuresis as patient with hypotension episodes No signs of congestive heart failure clinically (4) Latent tuberculosis: Code(s): 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 (8) Coronary artery disease: Code(s): I25.10 - Atherosclerotic heart disease of [place] coronary artery without angina pectoris Status: Acute Assessment and Plan: No chest pain (9) Hypertension: Code(s): I10 - Essential (primary) hypertension Status: Acute Assessment and Plan: Holding hydrochlorothiazide Holding amlodipine Hospitalist MIPS Advance Care Plan I have confirmed that the patient's Advanced Care Plan is present, code status is documented, or surrogate decision maker is listed in patient medical record.: Yes Medication Reconciliation I have utilized all available resources to obtain, update and review the patients current medications (includes all prescriptions, OTC, herbals, cannabis, and nutritional supplements).: Yes
[2024-06-21] MEDS: AZITHROMYCIN 500 MG/NS 250 ML 500 MG/250 ML BAG 250 MG IVPB (23:45)
[2024-06-22] VITALS (23 sets, daily range): BP systolic 0–96; BP diastolic 0–70; PULSE 0–124; RESP 0–30; TEMP 34.3–37.6; O2SAT 95–100; BMI 23.1
[2024-06-22] MEDS: HYDROCORTISONE SODIUM SUCCINATE 100 MG/2 ML VIAL IV PUSH ×2 (01:42→06:34)
--- NOTE | 2024-06-22 01:43 | ADMGEN ---
This patient, Chin Baldwin, was admitted to IMU Room 209-. Patient/family oriented to hospital policies and general routines including ID bracelet, bed and alarms, visiting hours, pain management, procedures, bathroom and other care routines, personal items, smoking policy, room service/diet, and visiting hours. Information on how to activate the Rapid Response Team has been discussed. Patient/Family are encouraged to report perceived risks to care and to ask questions if they do not understand what they are told or what they should do.
[2024-06-22] MEDS: SODIUM CHLORIDE 0.9% IV 1,000 ML 999 ML (01:52)
[2024-06-22 06:23] LABS: Anion Gap 6 mmol/L (4-12); Blood Urea Nitrogen 31 mg/dL (9-20); Calcium 7.5 mg/dL (8.4-10.2); Carbon Dioxide 19 mmol/L (22-30); Chloride 109 mmol/L (98-107); Estimated CRCL calculation 49 ml/min; Estimated Glomerular Filt Rate 58; Glucose 129 mg/dL (65-110); Potassium 3.7 mmol/L (3.4-5.0); Sodium 134 mmol/L (137-145)
[2024-06-22] MEDS: SODIUM CHLORIDE 0.9% IV 1000 ML BAG IVPB (06:34)
[2024-06-22 06:47] LABS: Troponin I 0.317 ng/mL (0.000-0.034)
[2024-06-22] MEDS: ACETAMINOPHEN 325 MG TABLET 650 MG PO (08:22)
--- NOTE | 2024-06-22 09:47 | ECG_ITS ---
Test Date: 2024-06-22 10:38:30 Measurements Intervals [place] Rate: 118 P: 107 TN: 191 QRS: 74 QRSD: 123 T: 29 QT: 323 QTc: 453 Interpretive Statements SINUS TACHYCARDIA with first degree block POSSIBLE RIGHT VENTRICULAR CONDUCTION DELAY [RSR (QR) IN V1/V2] NONSPECIFIC T-WAVE ABNORMALITY ABNORMAL RHYTHM ECG Compared to ECG 06/21/2024 21:16:31 Incomplete right bundle-branch block no longer present ST (T wave) deviation no longer present Electronically Signed On 06-22-2024 13:38:47 INSERTER by Ronnie Razo M.D.
--- NOTE | 2024-06-22 09:51 | PM.CNCAR ---
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 Patient recently discharged from [facility]. While in the emergency room patient had episode of atrial fibrillation with RVR and hypotension. It was noticed today that his blood pressure systolic in the 70s and 80s and he is tachycardic. He was transferred to ICU intubated and started on Levophed and currently at 7 mics. EKG shows sinus tachycardia with 1st degree heart block post intubation. Apparently he fell in his driveway a couple weeks ago and was on the ground for some time and he has multiple scratches on his legs and also multiple gangrenous toes. -septic shock -AFib with RVR -history of CABG and stents -in regards to septic shock, elevated white cells. He was hypotensive. Currently on Levophed which will be weaned off as tolerated. Continue broad-spectrum antibiotics. -history AFib with RVR he had an episode of AFib with RVR however appears to be in sinus tachycardia now. Will continue observation. He does have gangrenous changes in his toes which needs to be clarified as it was reported that he was down on his driveway couple weeks ago for some time and this could be frostbite. If recurrence of atrial fibrillation will recommend anticoagulation. Echocardiogram done June 01, 2024 showed normal ejection fraction -in regards to history of CABG and stents, recommend aspirin and high-intensity statin. -in regards to troponin elevation, minimal elevation. Likely secondary to hypotension and tachycardia. EKG does not show ischemia. -regards to latent tuberculosis, on isoniazide. 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 Patient recently discharged from [facility]. While in the emergency room patient had episode of atrial fibrillation with RVR and hypotension. It was noticed today that his blood pressure systolic in the 70s and 80s and he is tachycardic. He was transferred to ICU intubated and started on Levophed and currently at 7 mics. EKG shows sinus tachycardia with 1st degree heart block post intubation. Apparently he fell in his driveway a couple weeks ago and was on the ground for some time and he has multiple scratches on his legs and also multiple gangrenous toes. White cell count on admission 19.7 k, creatinine admission 1.4 and today 1.2. Troponin 0.03 and then 0.38, brain atretic peptide 8400 and serum albumin is 3. CT of the chest shows bilateral pleural based thickening and bilateral honeycomb changes which are new and there is another nodule. Chest x-ray reviewed and has muscle shows sternal wires, obliteration of the left costophrenic angle. Echo done June 01, 2024 ejection fraction 65%, abnormal septal motion due to bundle branch, mild left atrial enlargement, mild to moderate mitral regurgitation. Mild pulmonic regurgitation. EKG reviewed asthma so shows atrial fibrillation with RVR, LVH. Review of Systems Review of Systems: ROS unobtainable: Yes unobtainable due to endotracheal tube PMFSH Past Medical History Medical History Glaucoma Gout Kidney stones Vitamin B12 deficiency Latent tuberculosis Daily consumption of alcohol Chronic pain syndrome Chronic prescription opiate use Chronic obstructive pulmonary disease Coronary artery disease Hyperlipidemia Hypertension Surgical History Surgical History History of cataract extraction History of coronary artery stent placement x2 History of detached retina repair History of coronary artery bypass graft x 3 (2003) History of hernia repair Family History Family History Other Family history non-contributory Social History Social History Social History: Surrogate medical decision maker: eJannette Abdi, Conor Ramsey (children). Code status: Full code. Smoking packs per day: 2 Smoking cigarettes per day: 40.0 Years smoked: 45 Smoking pack-years: 90.00 Smoking status: Former smoker Tobacco type: cigarettes Additional smoking assessment comments: 2003 Alcohol intake: current Drinks per week: 21 Alcohol use details: 3 to 4 beers a night Substance use: current Substance use type: marijuana Last use: 04/2024 Do You Feel Safe in your Home?: Yes Lack of Transportation: No Lack of Food: Never True Current Housing: I Have Housing Concerned About Future Housing: No Difficulty Paying Gas/Electric Bills: No Difficulty Paying for Meds: No Currently Unemployed: No Education: Bachelor's Degree Difficulty w/ Childcare or Family Care: No Additional living arrangements comments: since 2022. He has 3 children. Lives alone in [place]. Additional occupation/education comments: Was in the [employer] for 3.5 years and served overseas in [place]. Spiritual care concerns: No Meds Home Medications and Allergies Home Medications ?Medication ?Instructions ?Recorded ?Confirmed ?Type albuterol 2 inh BYMOUTH QID PRN Shortness Of 05/28/24 06/22/24 History Breath Or Wheezing allopurinol 300 mg tablet 300 mg PO HS 05/28/24 06/22/24 History amlodipine 5 mg tablet 5 mg PO HS 05/28/24 06/22/24 History aspirin 81 mg tablet 81 mg PO DAILY 05/28/24 06/22/24 History atorvastatin 40 mg tablet 40 mg PO HS 05/28/24 06/22/24 History cholecalciferol (vitamin D3) 25 1,000 unit PO HS 05/28/24 06/22/24 History mcg (1,000 unit) tablet (Vitamin D3) dorzolamide 2 %-timolol 0.5 % (PF) 1 p ophthalmic (eye) BID 05/28/24 06/22/24 History eye drops hydrochlorothiazide 25 mg tablet 25 mg PO DAILY 05/28/24 06/22/24 History hydrocodone 5 mg-acetaminophen 325 1 tablet PO Q6H PRN Pain 05/28/24 06/22/24 History mg tablet isoniazid 300 mg tablet 300 mg PO DAILY 05/28/24 06/22/24 History naloxone 0.4 mg/0.4 mL injection, 0.4 mg IM DAILY 05/28/24 06/22/24 History auto-injector olodaterol 2.5 mcg/actuation mist 2 puff inhalation DAILY 05/28/24 06/22/24 History for inhalation (Striverdi Respimat) pyridoxine (vitamin B6) 50 mg 50 mg PO DAILY 05/28/24 06/22/24 History tablet vitamin B complex 1 tablet PO DAILY 05/28/24 06/22/24 History Allergies Allergy/AdvReac Type Severity Reaction Status Date / Time Sulfa (Sulfonamide Allergy Unknown Verified 05/28/24 18:08 Antibiotics) Vital Signs Vital Signs - 24 hr 06/21/24 20:44 06/21/24 20:55 06/21/24 21:04 Temperature 36.9 C Pulse Rate 123 H 126 H Respiratory Rate 33 H 31 H Blood Pressure 90/65 L 90/65 L Pulse Oximetry 96 97 97 Oxygen Delivery Nasal Cannula Nasal Cannula Oxygen Flow Rate 1 1 Fraction of Inspired Oxygen 06/21/24 21:04 06/21/24 22:02 06/21/24 22:17 Temperature Pulse Rate 120 H 112 H 112 H Respiratory Rate 31 H 22 H 19 Blood Pressure 76/57 L 90/68 L 92/71 L Pulse Oximetry 98 Oxygen Delivery Oxygen Flow Rate Fraction of Inspired Oxygen 06/21/24 22:52 06/21/24 22:52 06/21/24 22:53 Temperature 36.3 C L Pulse Rate 119 H 119 H Respiratory Rate 18 Blood Pressure 92/65 L Pulse Oximetry 98 98 Oxygen Delivery Nasal Cannula Oxygen Flow Rate 1 Fraction of Inspired Oxygen 06/22/24 00:34 06/22/24 01:21 06/22/24 01:36 Temperature 36.6 C 34.3 C L Pulse Rate 110 H 116 H Respiratory Rate 15 24 H Blood Pressure 88/60 L 77/48 L 76/43 L Pulse Oximetry 98 99 Oxygen Delivery Oxygen Flow Rate Fraction of Inspired Oxygen 06/22/24 01:41 06/22/24 01:47 06/22/24 02:00 Temperature 36.1 C L 36.8 C Pulse Rate 112 H 107 H 106 H Respiratory Rate 22 H 20 Blood Pressure 76/51 L 80/53 L Pulse Oximetry 100 99 Oxygen Delivery Oxygen Flow Rate Fraction of Inspired Oxygen 06/22/24 02:10 06/22/24 02:15 06/22/24 02:48 Temperature 37.2 C 36.9 C Pulse Rate 104 H 104 H 105 H Respiratory Rate 21 H 21 H 22 H Blood Pressure 84/70 L 96/60 L Pulse Oximetry 100 100 100 Oxygen Delivery Nasal Cannula Oxygen Flow Rate 2 Fraction of Inspired Oxygen 06/22/24 04:00 06/22/24 04:00 06/22/24 04:10 Temperature 37.2 C Pulse Rate 110 H 105 H 104 H Respiratory Rate 24 H 20 Blood Pressure 87/62 L Pulse Oximetry 100 100 Oxygen Delivery Nasal Cannula Oxygen Flow Rate 2 Fraction of Inspired Oxygen 06/22/24 06:00 06/22/24 06:07 06/22/24 08:00 Temperature 37.5 C 37.6 C Pulse Rate 107 H 105 H 120 H Respiratory Rate 22 H 24 H Blood Pressure 76/56 L 87/57 L Pulse Oximetry 98 98 Oxygen Delivery Oxygen Flow Rate Fraction of Inspired Oxygen 06/22/24 08:08 Temperature Pulse Rate Respiratory Rate Blood Pressure Pulse Oximetry 96 Oxygen Delivery Nasal Cannula Oxygen Flow Rate 2 Fraction of Inspired Oxygen 28 Exam Const: General: no acute distress HENMT: Face/Nose/Sinus: no epistaxis Neck: Thyroid: thyroid normal Resp: Auscultation: diminished lung sounds Cardio: Rate: tachycardic Rhythm: regular rhythm GI: GI Palp: Yes Soft to palpation and No Firmness to palpation present (GI) Neuro: Other: Unable to assess due to being intubated and sedated Extrem: Other: Multiple scratches on legs and gangrenous toes on the foot Psych: Other: Unable to assess as patient is intubated Results Labs and Meds 06/21/24 21:19 06/22/24 05:59 Lab results: Cardiac Enzymes 06/21/24 06/22/24 Range/Units 21:19 05:59 AST 61 H (17-59) U/L Troponin I 0.038 H* 0.317 H* (0.000-0.034) ng/mL CBC 06/21/24 Range/Units 21:19 WBC 19.7 H (4.5-10.0) K/mm3 RBC 3.40 L (4.6-6.20) M/mm3 Hgb 11.5 L (14.0-18.0) g/dL Hct 35.6 L (42.0-52.0) % Plt Count 199 (150-375) k/mm3 Lymph # (Auto) 3.46 H (0.9-3.2) K/mm3 [place] # (Auto) 1.7 H (0.1-0.6) K/mm3 Eos # (Auto) 0.0 (0-0.3) K/mm3 Baso # (Auto) 0.1 (0.0-0.1) K/mm3 Comprehensive Metabolic Panel 06/21/24 06/22/24 Range/Units 21:19 05:59 Sodium 134 L 134 L (137-145) mmol/L Potassium 3.9 3.7 (3.4-5.0) mmol/L Chloride 105 109 H (98-107) mmol/L Carbon Dioxide 19 L 19 L (22-30) mmol/L BUN 28 H 31 H (9-20) mg/dL Creatinine 1.40 H 1.20 (0.7-1.3) mg/dL Glucose 209 H 129 H (65-110) mg/dL Calcium 8.3 L 7.5 L (8.4-10.2) mg/dL AST 61 H (17-59) U/L ALT 18 (6-50) U/L Alkaline Phosphatase 125 (38-126) U/L Total Protein 6.0 L (6.3-8.2) g/dL Albumin 3.1 L (3.5-5.1) g/dL Intake and Output 06/21/24 06/22/24 06/22/24 23:59 07:59 15:59 Intake Total 50 1500 Output Total 200 Balance 50 1300 Intake: IV 50 1500 Sodium Chloride 0.9% IV 1,000 1000 ml @ 0 mls/hr .ROUTE .STK-MED ONE Rx#:[id number] Sodium Chloride 0.9% IV 500 ml 500 @ 999 mls/hr IV CONT .Q31M STA Rx#:[id number] cefTRIAXone 1 GM/NS 50 ML 1 gm 50 In 50 ml @ 100 mls/hr IVPB ONCE STA Rx#:[id number] Output: Catheter Urine 200 Urethral Catheter 200 Other: Amount of IV Fluids Infused by 200 EMS Patient Weight 06/22/24 23:59 Weight 79.6 kg
[2024-06-22] MEDS: NOREPINEPHRINE 8 MG/D5W 250 ML 8 MG/250 ML BAG 9.38 MG IV CONT (10:03)
[2024-06-22] MEDS: ROCURONIUM BROMIDE 50 MG/5 ML VIAL IV PUSH (10:05)
[2024-06-22] MEDS: ETOMIDATE 20 MG/10 ML AMPUL IV PUSH (10:05)
[2024-06-22 10:13] LABS: Glucose Point of Care 185 mg/dl (65-105)
[2024-06-22] MEDS: MIDAZOLAM 100MG/NS 100ML(*CRX) 100 MG/100 ML BAG IV CONT (10:26)
[2024-06-22] MEDS: FENTANYL 2,500MCG/NS250ML(*CRX 2,500 MCG/250 ML BAG IV CONT (10:26)
--- NOTE | 2024-06-22 10:28 | PC.NURSE ---
0945- orders to transfer to ICU- moved to ICU 6 via bed with O2 2l/nc- accompanied by staff - report given to Trena ames with pt- cynthia Nunes notified of transfer by Dr. Tyler
[2024-06-22 11:16] LABS: Alveolar/Arterial O2 Gradient 295.2 mmHg; Base Excess ABG -15.7 mEq/l (+/-2.0); Fractional Inspired Oxygen 100 %; HCO3 ABG 11.9 mEq/l (22.0-26.0); Oxygen Content ABG 18.5 %vol (16.0-22.0); Oxygen Saturation ABG 99.7 % (95.0-100.0); Oxyhemoglobin 99.5 % THb (90.0-100.0); PO2 ABG 383.8 mmHg (80.0-100.0); PO2 FiO2 Ratio Arterial Blood 3.84 %; Total Hemoglobin 12.5 g/dL (12.0-18.0)
[2024-06-22] MEDS: SODIUM BICARBONATE 8.4% 50 MEQ/50 ML SYRINGE 100 MEQ IV PUSH (11:25)
[2024-06-22] MEDS: ATROPINE SULFATE 1 MG/10 ML SYRINGE IV PUSH (11:30)
[2024-06-22 11:54] LABS: pH ABG 7.161 (7.350-7.450)
[2024-06-22 11:55] LABS: Arterial Blood Gas PEEP 5 cmH2O; Arterial Blood Gas Vent Mode CMV; Arterial Blood Gas Ventilator rate 20 /MIN; Device VENTILATOR; Modified Allen's Test Pass; Site Drawn LEFT RADIAL
[2024-06-22 11:56] LABS: Arterial Blood Gas Tidal Volume 500 ml
--- NOTE | 2024-06-22 11:57 | P.CONIN_ITS ---
Assessment and Plan Assessment and plan (1) Septic shock: Code(s): A41.9 - Sepsis, unspecified organism; R65.21 - Severe sepsis with septic shock Status: Acute Assessment and Plan: Patient presented with hypotension, received 4 L IV fluids, despite which he has remained hypotensive and was transferred to the ICU on 06/22 -upon arrival to the ICU patient was intubated for acute respiratory distress and impending respiratory failure -right IJ central line was placed ICU -patient was started on Levophed peripherally which was later switched to central line once line placement was confirmed on radiology. -patient became bradycardic, was given 2 amps of bicarb and atropine, then went into a non perfusing rhythm, then had a brief non perfusing bradycardic pulse, slow AFib, trigeminy and and PE PEA. I quickly called a chaparro Nunes, and updated with this situation, he stated he had spoken to the biological son who lives in [facility] and both of them decided no CPR. Patient passed at 11:48 a.m. on 06/22/2024 (2) Acute respiratory failure: Code(s): J96.00 - Acute respiratory failure, unspecified whether with hypoxia or hypercapnia Status: Acute Assessment and Plan: Acute respiratory failure, multifactorial, pneumonia versus metabolic acidosis -patient was intubated on 06/22/2024 in the ICU -on CMV mode of ventilation, peep of 5, 100% FiO2 -post intubation ABGs showed severe metabolic acidosis, pH of 7.16, pCO2 of 34, PO2 was 383, HC03 11.9, this was on 500 tidal volume, rate of 20, peep of 5 on 100% FiO2 -chest x-ray and chest CT were reviewed (3) Atrial fibrillation with RVR: Code(s): I48.91 - Unspecified atrial fibrillation Status: Acute Assessment and Plan: Patient was in AFib, with heart rate in the 80s to 100 after which he started to Marcos down and had a pulseless electrical activity rhythm (4) Metabolic acidosis: Code(s): E87.20 - Acidosis, unspecified Status: Acute Assessment and Plan: Patient was given 2 amps of bicarb and was some was restarted on bicarb infusion but before that (5) Chronic obstructive pulmonary disease: Code(s): J44.9 - Chronic obstructive pulmonary disease, unspecified Status: Acute Assessment and Plan: History of COPD, start patient on antibiotics, steroids, bronchodilators Plan DVT prophylaxis: Lovenox Stress ulcer prophylaxis: Protonix Nutrition: NPO Code Status: No CPR, okay for intubation Critical Care Time Spent: 78 minutes including initial examination, procedures, family discussion Discussed with Des, patient's stepson and updated with his condition and plan of care. Andrea also spoke to the biological son was in [facility], both of them 1 of the few did they want to respect the patient's decision of of no CPR, and once the patient was in known perfusing PEA rhythm, they did high to let him go in peace and dignity. Due to a high probability of clinically significant, life threatening deterioration, the patient required my highest level of preparedness to intervene emergently and I personally spent this critical care time directly and personally managing the patient. This critical care time included obtaining a history; examining the patient; pulse oximetry; ordering and review of studies; arranging urgent treatment with development of a management plan; evaluation of patient's response to treatment; frequent reassessment; and discussions with other providers. It was exclusive of separately billable procedures and treating other patients and teaching time. Please see Assessment and Plan section and the rest of the note for further information on patient assessment and treatment This dictation may have been done utilizing a voice recognition system. Attempts have been made to correct errors. However, there may be uncorrected grammatical, spelling, and recognitions errors present. 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 Patient stated that he has not been feeling fell for the last few days prior to admission, denies any fevers or chills. Patient did complain of nonproductive cough, has a Holter monitor. Patient was in AFib RVR in the ER and was given Cardizem IV. Chest x-ray showed pneumonia with bibasilar pleural thickening with bibasilar honeycombing. UA was negative. WBC 19.7, hemoglobin 11.5, platelets of 119. His electrolytes are within normal limits, creatinine 1.40, troponin of 0.038 and 0.317, proBNP of 8410. 06/22: Patient remained hypotensive despite receiving a total of 4 L in IV fluid boluses. Patient was brought to the ICU, immediately intubated because he was in severe respiratory distress, could not complete his sentences, stated eases could not breathe. Patient was in impending respiratory failure so I intubated the patient and placed him on mechanical ventilation after which I placed a right IJ central line. Patient was initially started on peripheral Levophed which was later switched to the central line once central line position was confirmed on chest x-ray. Post intubation ABGs showed severe metabolic acidosis, patient was bradycardic, was given 2 amps of bicarb and atropine, then went into a non perfusing rhythm, then had a brief non perfusing bradycardic pulse, slow AFib, trigeminy, PEA. I quickly called a chaparro Nunes, and updated with this situation, he stated he had spoken to the biological son who lives in [facility] and both of them decided no CPR. Patient passed at 11:48 a.m. on 06/22/2024 Review of Systems 2 Review of Systems: All systems reviewed & are unremarkable except as noted in HPI and below PMFSH Past Medical History Medical History Glaucoma Gout Kidney stones Vitamin B12 deficiency Latent tuberculosis Daily consumption of alcohol Chronic pain syndrome Chronic prescription opiate use Chronic obstructive pulmonary disease Coronary artery disease Hyperlipidemia Hypertension Surgical History Surgical History History of cataract extraction History of coronary artery stent placement x2 History of detached retina repair History of coronary artery bypass graft x 3 (2003) History of hernia repair Family History Family History Other Family history non-contributory Social History Social History Social History: Surrogate medical decision maker: Jeannette Des Abdi, Conor Baldwin (children). Code status: Full code. Smoking packs per day: 2 Smoking cigarettes per day: 40.0 Years smoked: 45 Smoking pack-years: 90.00 Smoking status: Former smoker Tobacco type: cigarettes Additional smoking assessment comments: 2003 Alcohol intake: current Drinks per week: 21 Alcohol use details: 3 to 4 beers a night Substance use: current Substance use type: marijuana Last use: 04/2024 Do You Feel Safe in your Home?: Yes Lack of Transportation: No Lack of Food: Never True Current Housing: I Have Housing Concerned About Future Housing: No Difficulty Paying Gas/Electric Bills: No Difficulty Paying for Meds: No Currently Unemployed: No Education: Bachelor's Degree Difficulty w/ Childcare or Family Care: No Additional living arrangements comments: since 2022. He has 3 children. Lives alone in [place]. Additional occupation/education comments: Was in the [employer] for 3.5 years and served overseas in [place]. Spiritual care concerns: No Meds Home Medications and Allergies Home Medications ?Medication ?Instructions ?Recorded ?Confirmed ?Type albuterol 2 inh BYMOUTH QID PRN Shortness Of 05/28/24 06/22/24 History Breath Or Wheezing allopurinol 300 mg tablet 300 mg PO HS 05/28/24 06/22/24 History amlodipine 5 mg tablet 5 mg PO HS 05/28/24 06/22/24 History aspirin 81 mg tablet 81 mg PO DAILY 05/28/24 06/22/24 History atorvastatin 40 mg tablet 40 mg PO HS 05/28/24 06/22/24 History cholecalciferol (vitamin D3) 25 1,000 unit PO HS 05/28/24 06/22/24 History mcg (1,000 unit) tablet (Vitamin D3) dorzolamide 2 %-timolol 0.5 % (PF) 1 drp ophthalmic (eye) BID 05/28/24 06/22/24 History eye drops hydrochlorothiazide 25 mg tablet 25 mg PO DAILY 05/28/24 06/22/24 History hydrocodone 5 mg-acetaminophen 325 1 tablet PO Q6H PRN Pain 05/28/24 06/22/24 History mg tablet isoniazid 300 mg tablet 300 mg PO DAILY 05/28/24 06/22/24 History naloxone 0.4 mg/0.4 mL injection, 0.4 mg IM DAILY 05/28/24 06/22/24 History auto-injector olodaterol 2.5 mcg/actuation mist 2 puff inhalation DAILY 05/28/24 06/22/24 History for inhalation (Striverdi Respimat) pyridoxine (vitamin B6) 50 mg 50 mg PO DAILY 05/28/24 06/22/24 History tablet vitamin B complex 1 tablet PO DAILY 05/28/24 06/22/24 History Allergies Allergy/AdvReac Type Severity Reaction Status Date / Time Sulfa (Sulfonamide Allergy Unknown Verified 05/28/24 18:08 Antibiotics) Vital Signs Vital Signs - 24 hr 06/21/24 20:44 06/21/24 20:55 06/21/24 21:04 Temperature 98.4 F Pulse Rate 123 H 126 H Respiratory Rate 33 H 31 H Blood Pressure 90/65 L 90/65 L Pulse Oximetry 96 97 97 Oxygen Delivery Nasal Cannula Nasal Cannula Oxygen Flow Rate 1 1 Fraction of Inspired Oxygen 06/21/24 21:04 06/21/24 22:02 06/21/24 22:17 Temperature Pulse Rate 120 H 112 H 112 H Respiratory Rate 31 H 22 H 19 Blood Pressure 76/57 L 90/68 L 92/71 L Pulse Oximetry 98 Oxygen Delivery Oxygen Flow Rate Fraction of Inspired Oxygen 06/21/24 22:52 06/21/24 22:52 06/21/24 22:53 Temperature 97.4 F L Pulse Rate 119 H 119 H Respiratory Rate 18 Blood Pressure 92/65 L Pulse Oximetry 98 98 Oxygen Delivery Nasal Cannula Oxygen Flow Rate 1 Fraction of Inspired Oxygen 06/22/24 00:34 06/22/24 01:21 06/22/24 01:36 Temperature 98 F 93.7 F L Pulse Rate 110 H 116 H Respiratory Rate 15 24 H Blood Pressure 88/60 L 77/48 L 76/43 L Pulse Oximetry 98 99 Oxygen Delivery Oxygen Flow Rate Fraction of Inspired Oxygen 06/22/24 01:41 06/22/24 01:47 06/22/24 02:00 Temperature 97.0 F L 98.3 F Pulse Rate 112 H 107 H 106 H Respiratory Rate 22 H 20 Blood Pressure 76/51 L 80/53 L Pulse Oximetry 100 99 Oxygen Delivery Oxygen Flow Rate Fraction of Inspired Oxygen 06/22/24 02:10 06/22/24 02:15 06/22/24 02:48 Temperature 98.9 F 98.5 F Pulse Rate 104 H 104 H 105 H Respiratory Rate 21 H 21 H 22 H Blood Pressure 84/70 L 96/60 L Pulse Oximetry 100 100 100 Oxygen Delivery Nasal Cannula Oxygen Flow Rate 2 Fraction of Inspired Oxygen 06/22/24 04:00 06/22/24 04:00 06/22/24 04:10 Temperature 99 F Pulse Rate 110 H 105 H 104 H Respiratory Rate 24 H 20 Blood Pressure 87/62 L Pulse Oximetry 100 100 Oxygen Delivery Nasal Cannula Oxygen Flow Rate 2 Fraction of Inspired Oxygen 06/22/24 06:00 06/22/24 06:07 06/22/24 08:00 Temperature 99.5 F 99.6 F Pulse Rate 107 H 105 H 120 H Respiratory Rate 22 H 24 H Blood Pressure 76/56 L 87/57 L Pulse Oximetry 98 98 Oxygen Delivery Oxygen Flow Rate Fraction of Inspired Oxygen 06/22/24 08:08 06/22/24 08:20 06/22/24 08:45 Temperature Pulse Rate 119 H 121 H Respiratory Rate 28 H Blood Pressure 84/54 L Pulse Oximetry 96 Oxygen Delivery Nasal Cannula Oxygen Flow Rate 2 Fraction of Inspired Oxygen 28 06/22/24 09:15 06/22/24 10:03 06/22/24 10:22 Temperature Pulse Rate 124 H 118 H 120 H Respiratory Rate 30 H Blood Pressure 78/52 L 80/57 L Pulse Oximetry 95 Oxygen Delivery Mechanical Ventilation Oxygen Flow Rate Fraction of Inspired Oxygen 100 06/22/24 10:26 06/22/24 10:26 06/22/24 10:26 Temperature Pulse Rate 120 H 118 H 118 H Respiratory Rate 20 20 Blood Pressure 65/29 L Pulse Oximetry Oxygen Delivery Oxygen Flow Rate Fraction of Inspired Oxygen Exam 2 Narrative: General: Patient now intubated and sedated HEENT:? Pupils were reactive and equal Neck:? Supple Respiratory:? Coarse breath sounds bilaterally, decreased at bases Cardiac: Irregularly irregular tachycardic Abdomen:? Soft, nontender, nondistended, hypoactive bowel so Extremities:? Multiple scars on his lower extremities and feet with eschar formation, feet were cold, decreased pedal pulses Neuro:? Patient on arrival to the ICU was awake, alert, was able to talk but had difficulty due to respiratory distress. Was moving all extremities and answering questions appropriately Skin:? Multiple scars on his lower extremities and feet with eschar formation Psych:? Distressed affect Results Labs 06/21/24 21:19 06/22/24 05:59 Labs: Short CBC 06/21/24 Range/Units 21:19 WBC 19.7 H (4.5-10.0) K/mm3 Hgb 11.5 L (14.0-18.0) g/dL Hct 35.6 L (42.0-52.0) % Plt Count 199 (150-375) k/mm3 BMP 06/21/24 06/22/24 21:19 05:59 Sodium 134 L 134 L Potassium 3.9 3.7 Chloride 105 109 H Carbon Dioxide 19 L 19 L BUN 28 H 31 H Creatinine 1.40 H 1.20 Glucose 209 H 129 H Calcium 8.3 L 7.5 L Cardiac Enzymes 06/21/24 06/22/24 Range/Units 21:19 05:59 Troponin I 0.038 H* 0.317 H* (0.000-0.034) ng/mL Liver Function 06/21/24 Range/Units 21:19 Total Bilirubin 1.0 (0.2-1.3) mg/dL AST 61 H (17-59) U/L ALT 18 (6-50) U/L Alkaline Phosphatase 125 (38-126) U/L Albumin 3.1 L (3.5-5.1) g/dL Quality VTE Prophylaxis VTE prophylaxis: pharmacologic ordered Hospitalist MIPS Advance Care Plan I have confirmed that the patient's Advanced Care Plan is present, code status is documented, or surrogate decision maker is listed in patient medical record.: Yes Medication Reconciliation I have utilized all available resources to obtain, update and review the patients current medications (includes all prescriptions, OTC, herbals, cannabis, and nutritional supplements).: Yes
--- NOTE | 2024-06-22 11:57 | WPDPROCEDUR ---
Procedures Intubation Intubation Date: 06/22/24 Intubation Time: 10:05 Consent: After explaining the rationale for intubation since patient was tachypneic, hypoxic, in acute respiratory distress. The patient wanted to breathe better and consented to intubation and mechanical ventilation. The son also consented to intubation A pre-procedural Time-Out was completed immediately before starting the procedure and confirmed: Patient Identification, Site, Procedure, Patient Position and the Availability of Requisite Equipment: Yes Sedative: etomidate Paralytic: rocuronium Laryngoscope: fiber optic video scope Assist device used: fiber optic device ET tube size: 8 Tube secured depth (cm): 26 Tube secured location: lips Tube placement confirmation: visualized tube passing through cords, equal breath sounds bilaterally, no breath sounds over epigastrium and confirmation by capnometry Patient tolerated procedure: well and no complications Intubation complications: none
--- NOTE | 2024-06-22 12:00 | P.PCNBED_ITS ---
Procedures Central Line Placement Right IJ: Central Line Date: 06/22/24 Central Line Time: 10:25 Discussed w/ the patient/family/POA,the placement of a central venous catheter, including its clinical necessity/indication & associated potential risks, benifits and alternatives.: Yes Consent: I have discussed with the patient and/or surrogate, the non-emergent placement of a central venous catheter, including its clinical necessity/indication and associated potential risks and complications. The patient and/or surrogate understand(s) and acknowledge(s) the need to proceed with central venous catheter insertion as an important element of the patient's clinical management. Time Out Performed: Yes Patient Position: supine Patient placed on monitor/pulse ox: Yes Provider Prep: mask, sterile gown, sterile gloves, Max. sterile barrier precautions and hand hygiene with conventional soap/water or alcohol based hand rub Central line prep: 2% Chlorhexidine scrub Local anesthesia used: lidocaine 1% Amount of anesthesia used (ml): 3 Sterile US Technique with sterile gel/sterile probe covers: Yes Central line lumen inserted: triple Qatari: 12 Length (cm): 16 Depth of Insertion (cm): 16 Post Procedure: sutured in place, good blood return, all ports aspirated, flushed, capped, transparent dressing, hemostatic product, antimicrobial product, securement product and aseptic technique maintained throughout procedure Post procedure x-ray: tip of catheter in good position and no pneumothorax seen Patient tolerated procedure: well Complications: none
[2024-06-22 12:01] LABS: Lactic Acid Reflex 5.7 mmol/L (0.7-2.0)
--- NOTE | 2024-06-22 12:01 | PC.NURSE ---
Patient went bradycardiac in the 30's at 1130. Atropine and 2 amps of sodium bicarbonate given per order from Dr. Pickering. Patient did not wish to have compressions done prior to being intubated and verbally spoke this wish to myself and Dr. Pickering. Dr. Pickering spoke to chaparro Nunes and the family wished for us to let him go peacefully. Patient then went into PEA and at 1148. Des here and Kole and I spoke with Conor patient's son via telephone for permission for release of body to home from family.
--- NOTE | 2024-06-22 12:07 | P.PNIM_ITS ---
Progress Note: A&P Assessment and Plan (1) Atrial fibrillation with RVR: Code(s): I48.91 - Unspecified atrial fibrillation Status: Acute Assessment and Plan: Admit to IMU Patient received diltiazem 10 mg IV push in emergency room (2) Pleural effusion on left: Code(s): J90 - Pleural effusion, not elsewhere classified Status: Acute Assessment and Plan: Patient started on antibiotics Cultures in progress (3) Congestive heart failure: Qualifiers: Heart failure chronicity: acute Heart failure type: unspecified Qualified Code(s): I50.9 - Heart failure, unspecified Code(s): I50.9 - Heart failure, unspecified Status: Acute Assessment and Plan: Monitor daily intake and output Holding off diuresis as patient with hypotension episodes No signs of congestive heart failure clinically (4) Latent tuberculosis: Code(s): 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 (8) Coronary artery disease: Code(s): I25.10 - Atherosclerotic heart disease of [place] coronary artery without angina pectoris Status: Acute Assessment and Plan: No chest pain (9) Hypertension: Code(s): I10 - Essential (primary) hypertension Status: Acute Assessment and Plan: Holding hydrochlorothiazide Holding amlodipine Plan Septic shock Likely from Pneumonia CT chest showed bibasilar pleural thickening with dependent honeycombing, part solid pleural-based nodule within right upper lobe, new from prior EKG showed sinus tachycardia Patient already received 2 liters NS Patient promptly transferred to ICU discussed with Dr Jose Discussed with patient chaparro who stated that patient can be intubated and placed on pressor support Continue IVF, and Antibiotics, start pressors per pastry decorator Pneumonia continue above care CHF, stable hold off diuretics Latent tuberculosis on Isoniazid Alcohol abuse on CIWA protocol COPD, no exacerbation on bronchodilators Hypertension Now hypotensive hold antihypertensives CAD continue home meds DVT prophylaxis on Sq Lovenox Subjective Date/time seen: 06/22/24 12:07 Interval history: Was called to patient bedside for tachycardia and hypotension Nurse noted patient already received 2 liters normal saline. Patient was transferred to ICU for critical care. Review of Systems Review of Systems: Shortness of breath, generalized weakness Exam Narrative: Laying in a stretcher Const: General: cooperative, comfortable, no acute distress, well developed, alert, awake, ill appearing chronically and average body habitus Nutritional Appearance: average body habitus Orientation/consciousness: patient oriented x3 Other: Patient is laying in a stretcher, frail looking HENMT: Head: normal to inspection, normocephalic and atraumatic Ears: hearing grossly normal bilaterally Face/Nose/Sinus: normal facial exam Face and sinus: normal facial exam Eyes: General: appearance normal, both eyes and all related structures Pupils: Equal, round and reactive pupils present EOM: EOMs intact bilaterally Neck: Neck: full ROM, no lymphadenopathy and no JVD Thyroid: thyroid normal Lymphatic: no lymphadenopathy noted Resp: Effort & Inspection: normal respiratory effort and able to speak in complete sentences Auscultation: diminished lung sounds Cardio: Jugular venous distension: no JVD Rate: regular rate Rhythm: regular rhythm Heart sounds: S1 normal heart sound present and S2 normal heart sound present : General: Yes deferred Skin: Rashes: no rashes Wounds: no wounds Neuro: General: patient oriented x3, CN's II-XI intact bilaterally and Unable to assess gait Cranial nerves: Yes CN's II-XII intact bilaterally and Yes Equal, round and reactive pupils present Cognition (Neuro): normal cognition Speech: normal speech Gait exam (Neuro): Unable to assess gait Motor exam (neuro): 5/5 motor strength present throughout Extrem: General: normal to inspection, full ROM, no joint enlargement and no pedal edema Objective Data Vital Signs Vital Signs: Vital Signs - 24 hr 06/21/24 20:44 06/21/24 20:55 06/21/24 21:04 Temperature 98.4 F Pulse Rate 123 H 126 H Respiratory Rate 33 H 31 H Blood Pressure 90/65 L 90/65 L Pulse Oximetry 96 97 97 Oxygen Delivery Nasal Cannula Nasal Cannula Oxygen Flow Rate 1 1 Fraction of Inspired Oxygen 06/21/24 21:04 06/21/24 22:02 06/21/24 22:17 Temperature Pulse Rate 120 H 112 H 112 H Respiratory Rate 31 H 22 H 19 Blood Pressure 76/57 L 90/68 L 92/71 L Pulse Oximetry 98 Oxygen Delivery Oxygen Flow Rate Fraction of Inspired Oxygen 06/21/24 22:52 06/21/24 22:52 06/21/24 22:53 Temperature 97.4 F L Pulse Rate 119 H 119 H Respiratory Rate 18 Blood Pressure 92/65 L Pulse Oximetry 98 98 Oxygen Delivery Nasal Cannula Oxygen Flow Rate 1 Fraction of Inspired Oxygen 06/22/24 00:34 06/22/24 01:21 06/22/24 01:36 Temperature 98 F 93.7 F L Pulse Rate 110 H 116 H Respiratory Rate 15 24 H Blood Pressure 88/60 L 77/48 L 76/43 L Pulse Oximetry 98 99 Oxygen Delivery Oxygen Flow Rate Fraction of Inspired Oxygen 06/22/24 01:41 06/22/24 01:47 06/22/24 02:00 Temperature 97.0 F L 98.3 F Pulse Rate 112 H 107 H 106 H Respiratory Rate 22 H 20 Blood Pressure 76/51 L 80/53 L Pulse Oximetry 100 99 Oxygen Delivery Oxygen Flow Rate Fraction of Inspired Oxygen 06/22/24 02:10 06/22/24 02:15 06/22/24 02:48 Temperature 98.9 F 98.5 F Pulse Rate 104 H 104 H 105 H Respiratory Rate 21 H 21 H 22 H Blood Pressure 84/70 L 96/60 L Pulse Oximetry 100 100 100 Oxygen Delivery Nasal Cannula Oxygen Flow Rate 2 Fraction of Inspired Oxygen 06/22/24 04:00 06/22/24 04:00 06/22/24 04:10 Temperature 99 F Pulse Rate 110 H 105 H 104 H Respiratory Rate 24 H 20 Blood Pressure 87/62 L Pulse Oximetry 100 100 Oxygen Delivery Nasal Cannula Oxygen Flow Rate 2 Fraction of Inspired Oxygen 06/22/24 06:00 06/22/24 06:07 06/22/24 08:00 Temperature 99.5 F 99.6 F Pulse Rate 107 H 105 H 120 H Respiratory Rate 22 H 24 H Blood Pressure 76/56 L 87/57 L Pulse Oximetry 98 98 Oxygen Delivery Oxygen Flow Rate Fraction of Inspired Oxygen 06/22/24 08:08 06/22/24 08:20 06/22/24 08:45 Temperature Pulse Rate 119 H 121 H Respiratory Rate 28 H Blood Pressure 84/54 L Pulse Oximetry 96 Oxygen Delivery Nasal Cannula Oxygen Flow Rate 2 Fraction of Inspired Oxygen 28 06/22/24 09:15 06/22/24 10:03 06/22/24 10:22 Temperature Pulse Rate 124 H 118 H 120 H Respiratory Rate 30 H Blood Pressure 78/52 L 80/57 L Pulse Oximetry 95 Oxygen Delivery Mechanical Ventilation Oxygen Flow Rate Fraction of Inspired Oxygen 100 06/22/24 10:26 06/22/24 10:26 06/22/24 10:26 Temperature Pulse Rate 120 H 118 H 118 H Respiratory Rate 20 20 Blood Pressure 65/29 L Pulse Oximetry Oxygen Delivery Oxygen Flow Rate Fraction of Inspired Oxygen Intake/Output Intake/Output: Intake & Output 06/19/24 06/20/24 06/21/24 06/22/24 23:59 23:59 23:59 23:59 Intake Total 50 1553.6 Output Total 200 Balance 50 1353.6 Meds/Results Medications: Active Medications Generic Name Dose Route Start Last Admin Trade Name Freq PRN Reason Stop Dose Admin Acetaminophen 650 mg 06/21/24 22:46 06/22/24 08:22 Acetaminophen 325 Mg Tablet PO 650 mg Q4H PRN Administration Mild Pain (1-3) or Fever Enoxaparin Sodium 40 mg 06/23/24 09:00 Enoxaparin 40 Mg/0.4 Ml Syringe SUB-Q DAILY [facility] Hydrocortisone Sodium Succinate 100 mg 06/22/24 08:00 06/22/24 06:34 Hydrocortisone Sodium Succinate 100 Mg/2 Ml Vial IV PUSH 100 mg Q8HR NIDIA Administration Doxycycline Hyclate 100 mg in 100 mls @ 100 mls/hr 06/22/24 10:00 Vibramycin 100 Mg/Ns 100 Ml IVPB Q12H NIDIA Norepinephrine Bitartrate 8 mg in 250 mls @ 13.125 mls/hr 06/22/24 10:10 06/22/24 10:26 Levophed 8 Mg/D5w 250 Ml IV CONT 7 mcg/min .Q19H3M NIDIA 13.13 mls/hr Titration Protocol 7 MCG/MIN Fentanyl Citrate 2,500 mcg in 250 mls @ 2.5 mls/hr 06/22/24 10:10 06/22/24 10:26 Fentanyl 2,500 Mcg/Ns 250 Ml IV CONT 25 mcg/hr .Q72H NIDIA 2.5 mls/hr Administration Protocol 25 MCG/HR Midazolam HCl 100 mg in 100 mls @ 1 mls/hr 06/22/24 10:10 06/22/24 10:26 Versed 100 Mg/Ns 100 Ml IV CONT 1 mg/hr .Q72H NIDIA 1 mls/hr Administration Protocol 1 MG/HR Ceftriaxone Sodium 2 gm in 100 mls @ 200 mls/hr 06/23/24 09:00 Rocephin 2 Gm/Ns 100 Ml IVPB Q24H NIDIA Albumin Human 25 gm in 500 mls @ 125 mls/hr 06/22/24 12:00 Albumin Human 5% IV CONT 06/22/24 15:59 .Q4H ONE Sodium Bicarbonate 150 meq/ 1,100 mls @ 75 mls/hr 06/22/24 11:20 Dextrose IV CONT .[id number] NIDIA Vancomycin HCl 2,000 mg in 500 mls @ 250 mls/hr 06/22/24 12:00 Vancomycin 2,000 Mg/Ns 500 Ml IVPB 06/22/24 13:59 ONCE ONE Vancomycin HCl 1,500 mg in 500 mls @ 250 mls/hr 06/23/24 12:00 Vancomycin 1,500 Mg/Ns 500 Ml IVPB Q24H [facility] Multi-Ingred Cream/Lotion/Oil/Oint 1 applic 06/22/24 21:00 Mineral Oil/White Petrolatum Ointment EACH EYE Q12HR NIDIA Pantoprazole Sodium 40 mg 06/23/24 09:00 Pantoprazole Sodium Iv 40 Mg Vial IV PUSH QAM [facility] Perflutren Lipid Microsphere 0 ml 06/21/24 22:46 Perflutren Lipid Microspheres 1.5 Ml Vial Diluted To 10 Ml Total Volume IV PUSH 06/24/24 22:49 ONCE PRN adequate visualization Protocol Sodium Chloride 10 ml 06/22/24 14:00 Central Line Flush IV PUSH Q8HR [facility] Sodium Chloride 20 ml 06/22/24 10:34 Central Line Flush IV PUSH PRN PRN after blood draws Radiology Results: ITS Impressions Chest CT 06/22/24 09:18 IMPRESSION: Bibasilar pleural thickening with bibasilar and dependent honeycombing, an interval parenchymal change from prior examination dated 05/28/2024. This interval change likely corresponds to the abnormality suggested on prior plain film evaluation of a left-sided pleural effusion, of which there is none, on cross-sectional imaging. Part solid pleural-based nodule within the right upper lobe, new from prior. The time course of development suggests inflammatory/infectious etiology. Follow-up to resolution is recommended. Abdomen X-Ray 06/22/24 10:55 IMPRESSION: Nasogastric tube in good position and ready for immediate use. Chest X-Ray 06/22/24 10:56 IMPRESSION: Right internal jugular central venous catheter in good radiographic position and ready for immediate use. Orogastric tube presumably within the stomach and ready for immediate use. Endotracheal tube in good radiographic position. Multifocal part solid nodularity, likely infectious as these findings were not present on the CT examination dated 05/28/2024 Labs Labs: Laboratory Results - last 24 hr 06/21/24 06/22/24 06/22/24 21:19 05:59 09:44 WBC 19.7 H RBC 3.40 L Hgb 11.5 L Hct 35.6 L MCV 104.7 H MCH 33.8 MCHC 32.3 RDW 14.6 H Plt Count 199 MPV 12.0 H Immature Gran % (Auto) 5.5 H Neut % (Auto) 67.5 Lymph % (Auto) 17.6 L [place] % (Auto) 8.6 H Eos % (Auto) 0.1 Baso % (Auto) 0.7 Lymph # (Auto) 3.46 H [place] # (Auto) 1.7 H Eos # (Auto) 0.0 Baso # (Auto) 0.1 Abs Immat Gran (auto) 1.08 H Absolute Neuts (auto) 13.3 H Absolute Nucleated RBC 0.030 H Nucleated RBC % 0.2 Platelet Estimate Adequate Anisocytosis 1+ [place] Cells 1+ Schistocytes None seen Puncture Site ABG pH ABG pCO2 ABG pO2 ABG PO2/FiO2 Ratio ABG HCO3 ABG O2 Saturation ABG O2 Content ABG Base Excess A-a Gradient Oxyhemoglobin Total Hemoglobin O2 Delivery Device O2 Liters/Min Minute Volume Vent Rate Vent Mode FiO2 Tidal Volume PEEP Peak Inspir Pressure Pressure Support Sodium 134 L 134 L Potassium 3.9 3.7 Chloride 105 109 H Carbon Dioxide 19 L 19 L Anion Gap 10 6 BUN 28 H 31 H Creatinine 1.40 H 1.20 Estim Creat Clear Calc 43 49 Estimated GFR 49 L 58 L Glucose 209 H 129 H POC Capillary Glucose 185 H Lactic Acid Calcium 8.3 L 7.5 L Total Bilirubin 1.0 AST 61 H ALT 18 Alkaline Phosphatase 125 Troponin I 0.038 H* 0.317 H* NT-Pro-B Natriuret Pep 8410 H Total Protein 6.0 L Albumin 3.1 L 06/22/24 06/22/24 11:14 11:28 WBC RBC Hgb Hct MCV MCH MCHC RDW Plt Count MPV Immature Gran % (Auto) Neut % (Auto) Lymph % (Auto) [place] % (Auto) Eos % (Auto) Baso % (Auto) Lymph # (Auto) [place] # (Auto) Eos # (Auto) Baso # (Auto) Abs Immat Gran (auto) Absolute Neuts (auto) Absolute Nucleated RBC Nucleated RBC % Platelet Estimate Anisocytosis [place] Cells Schistocytes Puncture Site Left radial ABG pH 7.161 L* ABG pCO2 34.0 L ABG pO2 383.8 H ABG PO2/FiO2 Ratio 3.84 ABG HCO3 11.9 L ABG O2 Saturation 99.7 ABG O2 Content 18.5 ABG Base Excess -15.7 A-a Gradient 295.2 Oxyhemoglobin 99.5 Total Hemoglobin 12.5 O2 Delivery Device Ventilator O2 Liters/Min Not Reportable Minute Volume Not Reportable Vent Rate 20 Vent Mode Cmv FiO2 100 Tidal Volume 500 PEEP 5 Peak Inspir Pressure Not Reportable Pressure Support Not Reportable Sodium Potassium Chloride Carbon Dioxide Anion Gap BUN Creatinine Estim Creat Clear Calc Estimated GFR Glucose POC Capillary Glucose Lactic Acid 5.7 H* Calcium Total Bilirubin AST ALT Alkaline Phosphatase Troponin I NT-Pro-B Natriuret Pep Total Protein Albumin
[2024-06-22 12:20] LABS: Influenza A QL RT-PCR Negative (Negative); Influenza B QL RT-PCR Negative (Negative); RSV RNA, RT-PCR Negative (Negative); SARS-CoV-2 RNA PCR Positive (Negative)
--- NOTE | 2024-06-22 12:29 | PM.DDS ---
Discharge Summary Date and Time Date of : 06/22/24 Time of : 11:48 Provider Pronounced By: 2 RNs Name of First RN That Pronounced: Kole Bangura RN Name of Second RN That Pronounced: Trena Monsivais RN Probable Cause of Probable Cause of : Acute hypoxemic respiratory failure Septic shock Summary Hospital Course: This is an 79-year-old male with past medical history significant for dyslipidemia, hypertension, gout, glaucoma, COPD. Patient usually gets his care at [facility] he comes today to the emergency room due to shortness of breath, generalized weakness denies any chest pain, no cough, no sputum production, no leg swelling, no fevers rigors or chills. Patient recently discharged from [facility]. Preliminary workup was significant for chest x-ray with pleural effusions. While in the emergency room patient had episode of atrial fibrillation with RVR and hypotension. Patient has been admitted for further evaluation management and treatment. However this morning patient was in sinus tachycardia and hypotensive despite IVF resuscitation. Patient was promptly transferred to ICU for critical care. Discussed with patient's stepson who consented to intubation and pressor support. Cardiology was also consulted who reviewed patient and noted he converted to sinus tachycardia. Abg showed 7.161/34/383/11.9, lactic acid 5.7, and Covid test positive. Patient was intubated and placed on pressors. family arrived shortly after. Soon after intubation patient went into bradycardia and went into PEA arrest. however family at bedside stated no CPR and affirmed DNR. Patient eventually passed at 1148. Family was present. Additional Data Confirmation of as documented by pronouncing clinician: Pupillary Reflex, Palpable Pulses, Response to Stimuli, Heart Tones and Breath Sounds Name of Provider Notified: Dr. Tyler Time Provider Notified: 12:05 Provider Requests Autopsy: No Family Requests Autopsy: No Crystal Attacher Notified: Yes Date [facility] Notified of : 06/22/24 Time [facility] Notified of : 12:16
[2024-06-22 12:54] LABS: MRSA (PCR) NOT DETECTED (NOT DETECTE)
[2024-06-22 14:42] LABS: Reflex Lactic Acid Yes or No Add Lactic
--- NOTE | 2024-06-30 15:52 | PC.NURSE ---
Lactic 5.7 result came back after patient . Dr. Pickering and primary RN Trena barreto @ [id number]
== END 2024-06-22 11:48 | disposition expired | DRG 871 ==
LOC: ANHED 22:40 → ANHIMU 06-22 06:25 → ANHICU 06-24 07:11
PROVIDERS: Internal Medicine; Admitting Provider Internal Medicine; Emergency Provider Family Medicine; Visit Provider Internal Medicine
DX: A41.9 Sepsis, unspecified organism (principal); J18.9 Pneumonia, unspecified organism; J96.00 Acute respiratory failure, unspecified whether with hypoxia or hypercapnia; U07.1 COVID-19; R65.21 Severe sepsis with septic shock; E87.20 Acidosis, unspecified; I48.20 Chronic atrial fibrillation, unspecified; I11.0 Hypertensive heart disease with heart failure; I50.9 Heart failure, unspecified; I25.10 Atherosclerotic heart disease of native coronary artery without angina pectoris; J44.9 Chronic obstructive pulmonary disease, unspecified; E53.8 Deficiency of other specified B group vitamins; E78.5 Hyperlipidemia, unspecified; G89.4 Chronic pain syndrome; H40.9 Unspecified glaucoma; F10.10 Alcohol abuse, uncomplicated; Z22.7 Latent tuberculosis; Z79.82 Long term (current) use of aspirin; Z79.891 Long term (current) use of opiate analgesic; Z87.442 Personal history of urinary calculi; Z95.5 Presence of coronary angioplasty implant and graft; Z95.1 Presence of aortocoronary bypass graft; Z87.891 Personal history of nicotine dependence
CPT/HCPCS: 31500; 36415; 36600; 71045; 71250; 74018; 80048; 80053; 82805; 82948; 83605; 83880; 84484; 85018; 85025; 87040; 87637; 87641; 93005; 99285; A9270; C1751; J0456; J0461; J0696; J1720; J1940; J2250; J3010; J7030; J7040